=== PATIENT | female | born 1950 | race Caucasian/White ===

== ENCOUNTER 2021-03-11 11:42 | Outpatient (CLI) | payer MEDICARE, OTHER, SELFPAY ==
[2021-03-11 12:05] LABS: Basophils Percent Auto 0.4 % (0.2-1.2); Eosinophils Absolute Auto 0.1 K/mm3 (0-0.3); Eosinophils Percent Auto 1.3 % (0-4.4); Hematocrit 37.7 % (37.0-47.0); Hemoglobin 11.6 g/dL (12.0-15.0); Immature Granulocyte Absolute 0.03 K/mm3 (0.00-0.031); Immature Granulocyte Percent A 0.4 % (0-0.5); Lymphocytes Absolute Auto 1.77 K/mm3 (0.9-3.2); Lymphocytes Percent Auto 24.8 % (18.3-44.2); Mean Corpuscular HGB Conc 30.8 g/dl (32-36); Mean Corpuscular Hemoglobin 26.9 pg (26-34); Mean Corpuscular Volume 87.5 fl (80-100); Monocytes Absolute Auto 0.5 K/mm3 (0.1-0.6); Monocytes Percent Auto 6.3 % (2.6-8.5); Neutrophils Absolute Auto 4.8 K/mm3 (1.3-6.7); Neutrophils Percent Auto 66.8 % (45.5-73.1); Platelet Count Result 388 k/mm3 (150-375); Red Blood Count 4.31 M/mm3 (4.2-5.4); White Blood Count 7.2 K/mm3 (4.5-10.0)
[2021-03-11 12:23] LABS: Albumin Level 4.9 g/dL (3.5-5.1); Anion Gap 13 mmol/L (8-16); Blood Urea Nitrogen 16 mg/dL (7-17); Calcium 9.8 mg/dL (8.4-10.2); Carbon Dioxide 26 mmol/L (22-30); Chloride 100 mmol/L (98-107); Estimated Glomerular Filt Rate > 60; Glucose 133 mg/dL (65-105); Potassium 4.7 mmol/L (3.4-5.0); Sodium 139 mmol/L (137-145)
[2021-03-11 12:57] LABS: Hemoglobin A1C 7.3 % (<5.7)
[2021-03-11 12:58] LABS: Urine Cotinine NEGATIVE
== END 2021-03-11 11:43 | disposition home or self-care (01) ==
LOC: ANHSURGERY 03-30 11:42
PROVIDERS: Visit Provider Orthopaedic Surgery
DX: M16.12 Unilateral primary osteoarthritis, left hip (principal); Z01.818 Encounter for other preprocedural examination
CPT/HCPCS: 80048; 80307; 82040; 83036; 85025; 87070

== ENCOUNTER 2021-03-30 01:01 | Day surgery (SDC) | payer MEDICARE, OTHER, SELFPAY ==
[2021-03-11 10:27] VITALS: BP 102/58; PULSE 90; RESP 16; TEMP 36.4; O2SAT 98; BMI 29.5
--- NOTE | 2021-03-29 08:56 | WPDANESEPPF ---
Anes - Initial Pre Proc Eval Procedure: Operation Date: 03/30/21 12:00 Proposed Procedures p Left Total Hip Arthroplasty- Anterior Approach - Kofi Anna MD Date/Time: 03/29/21 08:56 Surgeon: Kofi Anna MD Pre Op Diagnosis: OA left hip Patient Data Age: 70 Gender: F Height: 1.61 m Weight: 77 kg Last Vital Signs Temp 36.4 C 03/11/21 10:27 Pulse 90 03/11/21 10:27 Resp 16 03/11/21 10:27 BP 102/58 L 03/11/21 10:27 Pulse Ox 98 03/11/21 10:27 Allergies Allergy/AdvReac Type Severity Reaction Status Date / Time No Known Allergies Allergy Verified 03/30/21 10:08 Home Medications Medication Instructions Recorded Confirmed Type acetaminophen [Tylenol Arthritis] 1,300 mg PO Q12H PRN 03/11/21 03/30/21 History aspirin [Aspir-81] 81 mg PO DAILY 03/11/21 03/30/21 History atorvastatin 40 mg PO DAILY 03/11/21 03/30/21 History carvedilol 3.125 mg PO BID 03/11/21 03/30/21 History losartan 25 mg PO HS 03/11/21 03/30/21 History meloxicam 15 mg PO QAM 03/11/21 03/30/21 History metformin 1,000 mg PO BID 03/11/21 03/30/21 History sertraline 50 mg PO QAM 03/11/21 03/30/21 History Patient hx anesthesia problems: none Family hx anesthesia problems: none PMFSH Past Medical History Medical History Anxiety Depression Diabetes type 2, controlled Hyperlipidemia Hypertension Osteoarthritis Surgical History Surgical History History of hysterectomy Social History Social History Smoking packs per day: 1.5 Smoking cigarettes per day: 30.0 Years smoked: 43 Smoking pack-years: 64.50 Smoking status: Former smoker Tobacco type: cigarettes Smoking end date: 03/03/11 Alcohol intake: former Alcohol use details: SOCIAL DRINKER IN PAST Substance use: never Living arrangements: with family Additional living arrangements comments: SON Spiritual care concerns: No Anes - Eval Final PreProcedure Day of Procedure 03/29/21 08:56 Patient weight: overweight Heart: regular rate and rhythm Lungs: clear to auscultation and normal air movement Airway: Mallampati scale class II Neurological: alert and oriented Last oral intake: >/= 8 hours ASA classification: III Emergent: no Anesthetic plan: proceed Anesthesia type and monitoring: general ETT and standard monitoring Informed Consent: The patient's anesthetic plan and its attendant risks and benefits were discussed with the patient/family/POA. Questions were solicited and answers provided to the satisfaction of the patient/family/POA.
[2021-03-30] VITALS (12 sets, daily range): BP systolic 118–158; BP diastolic 56–75; PULSE 68–105; RESP 12–20; TEMP 36.6–36.9; O2SAT 97–100
--- NOTE | ~2021-03-30 | XR_ITS ---
EXAMINATION: XR hip LT 1V w AP pelvis DATE: 03/30/2021 15:52 INDICATION: Postoperative evaluation following left total hip arthroplasty TECHNIQUE: Anteroposterior and lateral views of the left hip were obtained. COMPARISON: Intraoperative radiograph dated 03/30/2021 FINDINGS: Interval completion of the left total hip arthroplasty which appears well seated in near anatomic ali gnment. Surgical drain and expected subcutaneous gas in the postoperative bed. No fractures identifi ed. Mild to moderate osteoarthritis at the right hip. IMPRESSION: 1. Left total hip arthroplasty, negative for postoperative purposes. Reviewed, dictated and finalized at location A.
--- NOTE | ~2021-03-30 | XR_ITS ---
EXAMINATION: XR surgery orthopedic DATE: 03/30/2021 15:51 INDICATION: Anterior approach left total hip arthroplasty TECHNIQUE: A fluoroscopic images of the left hip and pelvis were obtained during procedure performed by Dr. Anna. Radiologist was not present for the imaging or procedure. The amount of fluoroscopy t miriam used during this procedure was 0.7 minutes. COMPARISON: None. FINDINGS: Images demonstrate resection of the left femoral head and neck and initial placement of a trial aceta bular component. On the final image the trial acetabular component has been replaced with the final a cetabular component which is affixed with at least a single screw. A femoral broach is been placed wi th proximal tip centered over the acetabular component. No fractures identified. Expected soft tissue gas in the operative bed. IMPRESSION: 1. Spectral appearance during left total hip arthroplasty. Correlate with procedure note note for fur ther detail. Reviewed, dictated and finalized at location A. IMPRESSION: 1. Spectral appearance during left total hip arthroplasty. Correlate with proce dure note note for further detail.
--- NOTE | 2021-03-30 08:22 | PM.IMHP ---
H&P: HPI History of Present Illness Date/Time: 03/30/21 08:22 70-year-old female patient who presents today for a left anterior total arthroplasty. She has been having pain in his hip for several years. It is progressively worsening. She is on meloxicam 15 mg daily. She also takes Tylenol on an as-needed basis to help her symptoms. She does have advanced arthritis in the left hip. Overall patient is fairly miserable on a daily basis due to the pain and restrictions from the arthritis. She feels this point she is ready to proceed with total hip arthroplasty. <MALICK Kramer - Last Filed: 03/30/21 08:28> Chief Complaint: left hip DJD <MALICK Kramer - Last Filed: 03/30/21 08:28> Review of Systems Review of Systems: All systems reviewed & are unremarkable except as noted in HPI and below <MALICK Kramer - Last Filed: 03/30/21 08:28> [facility] Past Medical History Medical History: Medical History Anxiety Depression Diabetes type 2, controlled Hyperlipidemia Hypertension Osteoarthritis <MALICK Kramer - Last Filed: 03/30/21 08:28> Surgical History Surgical History: Surgical History History of hysterectomy <MALICK Kramer - Last Filed: 03/30/21 08:28> Social History Social History: Social History Smoking packs per day: 1.5 Smoking cigarettes per day: 30.0 Years smoked: 43 Smoking pack-years: 64.50 Smoking status: Former smoker Tobacco type: cigarettes Smoking end date: 03/03/11 Alcohol intake: former Alcohol use details: SOCIAL DRINKER IN PAST Substance use: never Living arrangements: with family Additional living arrangements comments: SON Spiritual care concerns: No <MALICK Kramer - Last Filed: 03/30/21 08:28> Meds Home Medications and Allergies Home medications: Home Medications Medication Instructions Recorded Confirmed Type acetaminophen [Tylenol Arthritis] 1,300 mg PO Q12H PRN 03/11/21 03/30/21 History aspirin [Aspir-81] 81 mg PO DAILY 03/11/21 03/30/21 History atorvastatin 40 mg PO DAILY 03/11/21 03/30/21 History carvedilol 3.125 mg PO BID 03/11/21 03/30/21 History losartan 25 mg PO HS 03/11/21 03/30/21 History meloxicam 15 mg PO QAM 03/11/21 03/30/21 History metformin 1,000 mg PO BID 03/11/21 03/30/21 History sertraline 50 mg PO QAM 03/11/21 03/30/21 History <MALICK Kramer - Last Filed: 03/30/21 08:28> Allergies/Adverse reactions: Allergies Allergy/AdvReac Type Severity Reaction Status Date / Time No Known Allergies Allergy Verified 03/30/21 10:08 <MALICK Kramer Last Filed: 03/30/21 08:28> Exam Narrative: Exam Narrative: 70-year-old female alert pleasant. She is 5 ft 3 and 170 lb. Her left leg looks about 1/4 inch shorter than the right when she is supine. Flexion left hip is to 60 with a 10 degree flexion contracture. Full range of motion left knee otherwise. No effusion left knee. Internal rotation of the hip is 5? external rotation to 10?. She has normal abduction strength in the lateral position. Mild tenderness over the greater trochanter to palpation. Skin is all intact around the groin and anterior lateral hip. 2+ dorsalis pedis and posterior tibial artery pulse. Normal sensation left lower extremity. No edema. <MALICK Kramer - Last Filed: 03/30/21 08:28> Resp: Auscultation: clear to auscultation bilaterally <MALICK Kramer Last Filed: 03/30/21 08:28> Cardio: Rate: regular rate <MALICK Kramer Last Filed: 03/30/21 08:28> Rhythm: regular rhythm <MALICK Kramer Last Filed: 03/30/21 08:28> Assessment and Plan Additional Plan 70-year-old female who has advanced arthritis in the left hip with rather severe pains on a daily basis. Again this is affecting her daily l
[2021-03-30] MEDS: ACETAMINOPHEN 500 MG TABLET 1000 MG PO ×2 (10:18→18:46)
[2021-03-30] MEDS: LACTATED RINGERS 1,000 ML 30 ML IV CONT ×2 (10:30→15:52)
[2021-03-30 10:37] LABS: Glucose Point of Care 133 mg/dl (65-105)
[2021-03-30] MEDS: TRANEXAMIC ACID 1,000MG/ISO100 1,000 MG/100 ML BAG 200 MG IVPB (10:55)
--- NOTE | 2021-03-30 11:09 | SUR.PREOP ---
1109- TRANEXAMIC ACID 1,000 MG STARTED, AFTER ABOUT 10 MINUTES PT STATED HEAD STARTED ITCHING VERY BAD. TA STOPPED AND DR. CONTRERAS UPDATED. PT ALSO HAS HAD VANCO RUNNING FOR ABOUT 40 MINS. AFTER TA STOPPED, PT STATED ITCHING RESOLVED.
--- NOTE | 2021-03-30 11:17 | SUR.PREOP ---
1117- SPOKE WITH AND HE STATED TO GIVE
[2021-03-30] MEDS: DEXAMETHASONE SOD PHOS INJ 4 MG/ML VIAL IV PUSH (11:28)
--- NOTE | 2021-03-30 11:52 | WPDHPUPDATE1 ---
History and Physical Update Update Date/Time: 03/30/21 11:52 History and Physical has been reviewed, including an updated exam of the patient. There are NO changes in the patient's condition. Risks, benefits, and alternatives have been discussed and questions answered. Patient agrees to proceed with procedure.
[2021-03-30] MEDS: ceFAZolin 2 GM/D5W 50 ML 2 GM/50 ML BAG IVPB (12:03)
--- NOTE | 2021-03-30 12:04 | SUR.PREOP ---
1127- PT STATED SHE STILL WAS ITCHING, VANCO STOPPED AND DEXAMETHASONE 4 MG IVP GIVEN PER DR. SMITH. 1157- DR. SMITH SEEN PT. PT STATED SHE WAS NOT ITCHING AT THIS TIME. DR. SMITH STATED TO RESTART VANCO AND TA. INVENTORY TAKER AND GAMEPLAY PROGRAMMER UPDATED. NO REDNESS OR RASH NOTED ON SKIN.
[2021-03-30] MEDS: ceFAZolin SODIUM 1 GM VIAL 3 GM IRRIGATION (12:49)
[2021-03-30] MEDS: ceFAZolin SODIUM 1 GM VIAL IV PUSH (15:18)
[2021-03-30] MEDS: TRANEXAMIC ACID 1,000 MG/10 ML AMPUL 1000 MG IV PUSH (15:18)
--- NOTE | 2021-03-30 15:47 | SUR.OPER ---
post op films left hip done in or. end
--- NOTE | 2021-03-30 16:07 | W.PM.PROC2 ---
Procedure Note - Detailed Date of Procedure 03/30/21 Pre-op Diagnosis OA left hip Post-op Diagnosis same Procedure Performed Direct anterior approach left total hip arthroplasty Surgeon Kofi Anna MD Night Custodian is Shantanu Anesthesia general Indications severe arthritis pain stiffness Findings same. Bone quality was very good. Description of Procedure Patient was brought to the operating room and general anesthesia was administered. The feet were padded with soft roll and placed in the boots and SCDs placed on the calves which were running during the procedure. She received 2 g of Ancef weight based vancomycin 1 g of tranexamic acid preoperatively. She was placed on the [facility] [place] table and the left hip prepped draped usual fashion. A 10 cm incision was made 3 cm lateral to the ASIS extending distally. Dissection was carried down to the fascia over the tensor fascia milena which was longitudinally incised and elevated off the tensor fascia milena in the interval between TFL muscle and rectus femoris developed. We identified the crossing bifurcating vessels of the ascending lateral femoral circumflex vessels and these were ligated and divided. The ileal capsular is was elevated off the anterior capsule and the hip abducted internally rotated and the gluteus minimus elevated off the lateral capsule. Standard capsulotomy was performed. Severe hypertrophic changes were noted around the femoral head around the margin of the acetabulum. A femoral neck osteotomy was made according to preoperative templating a small napkin ring of bone was removed and the femoral head was extracted without difficulty. the anterior capsule was elevated off the anterior femur. The acetabulum was exposed and a preliminary trimming of the edges of the osteophytes was performed. Most of the labrum was ossified. Residual labrum was excised. The leg was extended after external rotation and interval between conjoined tendon and piriformis tendon was identified and incised which allowed the conjoined tendon to recess and allowed the piriformis to the posteriorly as we elevated the femur. The leg back in the neutral position the acetabulum was exposed. She had circumferential osteophytes resulting in a bony introitus. We medialized with the 42 Reamer to the floor of the fovea and reamed up to 47 and we could see that the 48 cup would be the correct size. To have the introitus compatible with the diameter of the cup we reamed to the 48 mm. The 48 trial fit well. The 47 Reamer was reintroduced and we countersunk this another 2-1/[address] to the medial wall for a 1 mm press fit. The 48 shell was chosen placed at 40? of abduction and the anteversion such that it was under the anterior acetabular osteophyte and about flush with the posterior margin of the acetabulum. An excellent Press-Fit was achieved and a single screw was placed in the ilium. Complete seating it been accomplished. The 32 inner diameter polyethylene liner 0 degree was impacted without difficulty. The leg was externally rotated extended and the femur broached up to a size 2 which had torsional stability. We trialed and the 5 head was too loose with a standard neck the 9mm neck was appropriate. We looked at intraoperative x-ray then and saw that we had equal leg lengths with the 9 mm neck. Offset appeared appropriate as well. The stem looked like it was a little bit undersized. We reassess the broach stability and again there was no torsional instability but a little bit of varus valgus wiggle with the broach handle. We broached up to a size 3 which was very snug and seated all the way down to the level of the calcar plane neck. On repeat trialing again the 9 mm neck was appropriate. We placed the size 3 standard offsetActis stem which seated fully again with an excellent press fit. On repeat trialing again the 5 was too loose the size 9 had a nice Shuck but was stable. The ceramic 9 mm x 32 mm femor
[2021-03-30 16:54] LABS: Glucose Point of Care 176 mg/dl (65-105)
--- NOTE | 2021-03-30 17:41 | ADMGEN ---
This patient, Luciana Pat, was admitted to 2 Medical Room 258-01. Patient/family oriented to hospital policies and general routines including ID bracelet, bed and alarms, visiting hours, pain management, procedures, bathroom and other care routines, personal items, smoking policy, room service/diet, and visiting hours. Information on how to activate the Rapid Response Team has been discussed. Patient/Family are encouraged to report perceived risks to care and to ask questions if they do not understand what they are told or what they should do.
[2021-03-30] MEDS: oxyCODONE HCL (*CRX) 5 MG TAB IR PO ×2 (18:46→20:34)
[2021-03-30] MEDS: SENNA/DOCUSATE SODIUM TABLET 2 TAB PO (18:46)
[2021-03-30] MEDS: metFORMIN HCL 500 MG TABLET 1000 MG PO (20:34)
[2021-03-30] MEDS: ATORVASTATIN 40 MG TABLET PO (20:34)
[2021-03-30] MEDS: carvediloL 3.125 MG TABLET PO (20:35)
[2021-03-30] MEDS: LOSARTAN POTASSIUM 25 MG TABLET PO (20:35)
[2021-03-30 21:28] LABS: Glucose Point of Care 271 mg/dl (65-105)
--- NOTE | 2021-03-30 22:30 | WPDCN ---
Assessment and Plan Assessment and plan (1) Arthritis of left hip: Code(s): M16.12 - Unilateral primary osteoarthritis, left hip Status: Acute Assessment and Plan: Postoperative day 0, status post anterior approach left total hip arthroplasty. Wound care and pain control will be deferred to Dr. Anna as well as DVT prophylaxis. Estimated blood loss noted, check hemoglobin and hematocrit in a.m. PT/OT consulted. (2) Hypertension: Code(s): I10 - Essential (primary) hypertension Status: Acute Assessment and Plan: Blood pressures were reviewed and they have been running a bit high postoperatively, likely due to pain. Continue antihypertensives and monitor daily. (3) Type 2 diabetes mellitus: Code(s): E11.9 - Type 2 diabetes mellitus without complications Status: Acute Assessment and Plan: Random glucose a bit elevated after surgery, likely due to stress of surgery. Initiate sliding scale insulin, Accu-Cheks, and hypoglycemic protocol. Resume metformin. (4) Hyperlipidemia: Code(s): E78.5 - Hyperlipidemia, unspecified Status: Acute Assessment and Plan: Continue atorvastatin and check LFTs in a.m. (5) Depression with anxiety: Code(s): F41.8 - Other specified anxiety disorders Status: Acute Assessment and Plan: No acute issues. Continue sertraline. Additional Plan Thank you for allowing us to participate in this patient's care. Please do not hesitate to contact us with any questions. Supervising physician for this medical consultation is Dr. Xochitl Campos. HPI Data of Consult Date/Time: 03/30/21 22:30 Requesting Physician: Kofi Anna MD Primary Care Provider: PHYSICIAN NOT ON STAFF Consult Narrative Narrative: This is a 70-year-old female who presented today for elective left anterior total hip arthroplasty whom the hospitalist service has been consulted for management of her medical conditions postoperatively. Aside from arthritis of the left hip her medical history is significant for type 2 diabetes mellitus, hypertension, hyperlipidemia, depression, and anxiety. The patient has been having pain in the left hip for several years which has gotten progressively worse. Despite conservative outpatient therapy her pain has continued and thus she elected for replacement. Her surgery was performed under general anesthesia with no immediate complications documented an estimated blood loss of 300 mL. She has been ambulating with a walker and up to the chair with moderate pain. When at rest she has minimal to no discomfort. She denies paresthesias, skin color, and temperature changes distal to the surgical site. She also denies postoperative fever, chills, sweats, chest pain, shortness of breath, nausea, and vomiting. Review of Systems Review of Systems: Twelve systems were reviewed with pertinent positives and negatives as per HPI. She believes her blood pressure and hypertension are well controlled on home medications. She is on metformin for her diabetes and tells me that her sugars have been running a bit higher recently and it looks like her most recent hemoglobin A1c was 7.3%. She denies retinopathy, nephropathy, and neuropathy however she does report that she will get aching in her lower legs but does not seem to be related to activity or rest. She denies claudication and pins and needle sensations. No history of venous thromboembolism. Except as documented, all other systems were reviewed and are negative. [facility] Past Medical History Medical History Anxiety Depression Hyperlipidemia Hypertension Normal cardiac stress test (2019) Osteoarthritis Shingles Type 2 diabetes mellitus Hemoglobin A1c was 7.3% on 03/11/2021. Surgical History Surgical History (Revi
[2021-03-31] VITALS (8 sets, daily range): BP systolic 107–119; BP diastolic 48–61; PULSE 66–107; RESP 16–20; TEMP 36.4–36.6; O2SAT 97–99
[2021-03-31] MEDS: oxyCODONE HCL (*CRX) 5 MG TAB IR PO ×4 (00:01→12:20)
[2021-03-31] MEDS: ACETAMINOPHEN 500 MG TABLET 1000 MG PO ×3 (00:01→12:20)
[2021-03-31] MEDS: BENZOCAINE/MENTHOL (*BKC) 18 EA LOZENGE 1 LOZENGE PO ×2 (00:01→04:15)
[2021-03-31 05:29] LABS: Basophils Percent Auto 0.2 % (0.2-1.2); Hematocrit 24.6 % (37.0-47.0); Immature Granulocyte Absolute 0.06 K/mm3 (0.00-0.031); Immature Granulocyte Percent A 0.4 % (0-0.5); Lymphocytes Absolute Auto 1.26 K/mm3 (0.9-3.2); Lymphocytes Percent Auto 8.7 % (18.3-44.2); Mean Corpuscular HGB Conc 32.5 g/dl (32-36); Mean Corpuscular Hemoglobin 27.5 pg (26-34); Mean Corpuscular Volume 84.5 fl (80-100); Mean Platelet Volume 10.2 fl (7.4-10.4); Monocytes Absolute Auto 1.1 K/mm3 (0.1-0.6); Monocytes Percent Auto 7.6 % (2.6-8.5); Neutrophils Percent Auto 83.1 % (45.5-73.1); Platelet Count Result 264 k/mm3 (150-375); Red Blood Count 2.91 M/mm3 (4.2-5.4); Red Cell Distribution Width 14.2 % (11.5-14.5); White Blood Count 14.5 K/mm3 (4.5-10.0)
[2021-03-31 05:45] LABS: Alanine Aminotransferase 20 U/L (4-35); Albumin Level 3.4 g/dL (3.5-5.1); Alkaline Phosphatase 49 U/L (38-126); Anion Gap 12 mmol/L (8-16); Aspartate Amino Transferase 28 U/L (14-36); Bilirubin,Total 0.4 mg/dL (0.2-1.3); Blood Urea Nitrogen 12 mg/dL (7-17); Calcium 8.4 mg/dL (8.4-10.2); Carbon Dioxide 20 mmol/L (22-30); Chloride 102 mmol/L (98-107); Estimated CRCL calculation 86 ml/min; Estimated Glomerular Filt Rate > 60; Glucose 120 mg/dL (65-110); Magnesium 1.2 mg/dL (1.6-2.3); Potassium 4.3 mmol/L (3.4-5.0); Sodium 134 mmol/L (137-145)
--- NOTE | 2021-03-31 07:18 | PM.PNORT ---
Progress Note: A&P Additional Plan POD 1 alert avss hgb-8.0 pt has been up overnight to restroom-no lightheaded/ dizzy. pt is tolerating anemia, drain is out wd-dry NVI pain is overall well controlled, plan to have pt work with PT today-if does well and having no symptoms and pain remains with pain controlled plan to send home this afternoon Subjective Subjective Date/Time Seen: 03/31/21 07:18 Objective Data Vital Signs Vital Signs: Vital Signs - 24 hr 03/30/21 10:48 03/30/21 15:52 03/30/21 16:05 Temperature 36.9 C 36.8 C Pulse Rate 81 88 82 Respiratory Rate 15 16 Blood Pressure 138/59 L 158/75 H 148/74 H Pulse Oximetry 97 100 100 03/30/21 16:20 03/30/21 16:25 03/30/21 16:35 Temperature Pulse Rate 74 74 Respiratory Rate 13 12 Blood Pressure 148/73 H 141/67 H Pulse Oximetry 100 99 98 03/30/21 16:50 03/30/21 17:05 03/30/21 17:15 Temperature Pulse Rate 68 75 77 Respiratory Rate 12 12 12 Blood Pressure 145/65 H 149/56 H 144/62 H Pulse Oximetry 99 97 98 03/30/21 20:00 03/30/21 20:35 03/30/21 21:43 Temperature 36.6 C Pulse Rate 96 69 96 Respiratory Rate 20 20 Blood Pressure 118/58 L Pulse Oximetry 97 97 03/31/21 00:00 03/31/21 00:42 03/31/21 04:00 Temperature 36.6 C Pulse Rate 78 74 88 Respiratory Rate 20 Blood Pressure 108/48 L Pulse Oximetry 98 03/31/21 05:34 Temperature 36.4 C L Pulse Rate 80 Respiratory Rate 20 Blood Pressure 107/49 L Pulse Oximetry 97 Intake/Output Intake/Output: Intake & Output 03/28/21 03/29/21 03/30/21 03/31/21 23:59 23:59 23:59 23:59 Intake Total 725 290 Output Total 0 30 Balance 725 260 Meds/Results Medications: Active Medications Generic Name Dose Route Start Last Admin Trade Name Freq PRN Reason Stop Dose Admin Acetaminophen 1,000 mg 03/30/21 18:00 03/31/21 05:01 Acetaminophen 500 Mg Tablet PO 1,000 mg Q6HR EMILIE Administration Apixaban 2.5 mg 03/31/21 09:00 Apixaban 2.5 Mg Tablet PO 04/12/21 09:01 Q12HR EMILIE Atorvastatin Calcium 40 mg 03/30/21 21:00 03/30/21 20:34 Atorvastatin 40 Mg Tablet PO 40 mg HS EMILIE Administration Benzocaine 1 lozenge 03/30/21 23:24 03/31/21 04:15 Benzocaine/Menthol (*Bkc) 18 Ea Lozenge PO 1 lozenge PRN PRN Administration Sore Throat Carvedilol 3.125 mg 03/30/21 21:00 03/30/21 20:35 Carvedilol 3.125 Mg Tablet PO 3.125 mg Q12HR EMILIE Administration Celecoxib 200 mg 03/31/21 08:00 Celecoxib 200 Mg Capsule PO DAILY@0800 EMILIE Cephalexin HCl 500 mg 03/31/21 13:00 Cephalexin 500 Mg Capsule PO 04/12/21 13:01 Q6HR EMILIE Dextrose 12.5 gm 03/30/21 22:47 Dextrose 50% 25 Gm/50 Ml Syringe IV PUSH PRN PRN Hypoglycemia Protocol Glucagon 1 mg 03/30/21 22:47 Glucagon For Inj 1 Mg Vial IM PRN PRN Hypoglycemia Protocol Glucose 15 gm 03/30/21 22:47 Glucose Oral Gel 15 Gm Of Glucse In 37.5 Gm Tube PO PRN PRN Hypoglycemia Protocol Cefazolin Sodium 1 gm in 50 mls @ 100 mls/hr 03/30/21 20:00 03/31/21 04:50 Ancef 1 Gm/D5w 50 Ml Pm IVPB 03/31/21 12:29 Infused Q8H EMILIE Infusion Vancomycin HCl 1,000 mg in 250 mls @ 250 mls/hr 03/30/21 22:00 03/30/21 22:20 Vancomycin 1,000 Mg/D5w 250 Ml IVPB 03/31/21 10:59 Infused Q12H EMILIE Infusion Dextrose 1,000 mls @ 100 mls/hr 03/30/21 22:47 Dextrose 5% 1,000 Ml IVPB PRN PRN Hypoglycemia Protocol Magnesium Sulfate 4 gm in 100 mls @ 100 mls/hr 03/31/21 06:35 Magnesium Sulf 4 Gm/Invra468vu IVPB 03/31/21 07:34 ONCE ONE Insulin Aspart 2 - 5 units 03/31/21 08:00 Insulin Aspart (*Bkc) 100 Units/Ml SUB-Q TIDWM EMILIE Protocol Losartan Potassium 25 mg 03/30/21 21:00 03/30/21 20:35 Losartan Potassium 25 Mg Tablet PO 25 mg HS EMILIE Administration Metformin HCl 1,000 mg 03/30/21 21:00 03/30/21 20:34 Metformin Hcl 500 Mg Tablet PO 1,000 mg Q12HR EMILIE Ad
--- NOTE | 2021-03-31 07:27 | PM.DS ---
DS: Admitting Diagnosis Admitting Diagnosis left hip DJD DS: Summary Hospital Course Hospital Course: stable Time Spent with Patient Time attestation: Total time spent providing and/or coordinating discharge services:70-year-old female who underwent left anterior total hip arthroplasty on 03/30. Procedure complications postoperatively she has been afebrile vital signs stable. Blood pressure is running a little low at 110 over 50s. Patient has been up to the restroom without having any dizziness or shortness of breath or chest pains. Hemoglobin on postop day 1 was 8.0 patient is tolerating his. Patient is weight-bearing as tolerated. She is on Eliquis for DVT prophylaxis. Pain is well controlled with scheduled Tylenol as well as oxycodone 5 mg. She is also Celebrex for the 1st 2 weeks as well. The patient is going to work with physical therapy on postop day 1. She continues to be symptomatic from the anemia as well as her pain remains well controlled plan on sending her home on 03/31. Patient was advised to keep leg elevated at home to prevent swelling. She was going home on a 10 day course of Keflex due to her history of diabetes. Will get another CBC checked tomorrow. DS: Data Data Completed and Pending Labs on day of discharge: Labs from last 24 hours 03/31/21 03/31/21 03/30/21 05:14 05:14 20:42 WBC 14.5 H RBC 2.91 L Hgb 8.0 L D Hct 24.6 L MCV 84.5 MCH 27.5 MCHC 32.5 RDW 14.2 Plt Count 264 MPV 10.2 Immature Gran % (Auto) 0.4 Neut % (Auto) 83.1 H Lymph % (Auto) 8.7 L Glenn % (Auto) 7.6 Eos % (Auto) 0.0 Baso % (Auto) 0.2 Lymph # (Auto) 1.26 Glenn # (Auto) 1.1 H Eos # (Auto) 0.0 Baso # (Auto) 0.0 Abs Immat Gran (auto) 0.06 H Absolute Neuts (auto) 12.0 H Absolute Nucleated RBC 0.0 Nucleated RBC % 0.0 Sodium 134 L Potassium 4.3 Chloride 102 Carbon Dioxide 20 L Anion Gap 12 BUN 12 Creatinine 0.50 L Estim Creat Clear Calc 86 Estimated GFR > 60 Glucose 120 H POC Capillary Glucose 271 H Calcium 8.4 Magnesium 1.2 L Total Bilirubin 0.4 Direct Bilirubin 0.0 AST 28 ALT 20 Alkaline Phosphatase 49 Total Protein 5.0 L Albumin 3.4 L Blood Type Antibody Screen 03/30/21 03/30/21 03/30/21 16:47 10:35 10:19 WBC RBC Hgb Hct MCV MCH MCHC RDW Plt Count MPV Immature Gran % (Auto) Neut % (Auto) Lymph % (Auto) Glenn % (Auto) Eos % (Auto) Baso % (Auto) Lymph # (Auto) Glenn # (Auto) Eos # (Auto) Baso # (Auto) Abs Immat Gran (auto) Absolute Neuts (auto) Absolute Nucleated RBC Nucleated RBC % Sodium Potassium Chloride Carbon Dioxide Anion Gap BUN Creatinine Estim Creat Clear Calc Estimated GFR Glucose POC Capillary Glucose 176 H 133 H Calcium Magnesium Total Bilirubin Direct Bilirubin AST ALT Alkaline Phosphatase Total Protein Albumin Blood Type O Positive Antibody Screen Negative Discharge Plan Discharge Patient Disposition: Home, Self-Care Discharge Instructions: YESSENIA SMITH M.D [facility], [place] [id number] POST-OPERATIVE DISCHARGE INSTRUCTIONS ANTERIOR TOTAL HIP ARTHROPLASTY 1. Move toes/feet up and down every hour while awake. 2. Be up walking every hour while awake. 3. Use cane in hand opposite of side of hip surgery or walker as comfort allows. Avoid sitting in a chair unless eating, receiving visitors or using the toilet. 4. When resting, lie on back with leg elevated above heart to minimize swelling. Significant swelling could indicate a blood clot and if this occurs, call the office (or go to the ER) to have a venous ultrasound performed. 5. Wound Care: Keep dry sponge on wound for 2 weeks. Use minimal tape.
[2021-03-31] MEDS: SENNA/DOCUSATE SODIUM TABLET 2 TAB PO (09:07)
[2021-03-31] MEDS: SERTRALINE HCL 50 MG TABLET PO (09:07)
[2021-03-31] MEDS: carvediloL 3.125 MG TABLET PO (09:07)
[2021-03-31] MEDS: metFORMIN HCL 500 MG TABLET 1000 MG PO (09:08)
[2021-03-31] MEDS: APIXABAN 2.5 MG TABLET PO (09:09)
[2021-03-31] MEDS: polyethylene glycoL 3350 17 GM POWD.PACK PO (09:09)
[2021-03-31] MEDS: CELECOXIB 200 MG CAPSULE PO (09:10)
[2021-03-31] MEDS: MAGNESIUM SULF 4 GM/WATER100ML 4 GM/100 ML BAG IVPB (09:11)
--- NOTE | 2021-03-31 09:30 | PM.IMPN ---
Progress Note: A&P Assessment and Plan (1) Arthritis of left hip: Code(s): M16.12 - Unilateral primary osteoarthritis, left hip Status: Acute Assessment and Plan: Postoperative day #1, status post anterior approach left total hip arthroplasty. Wound care and pain control will be deferred to Dr. Anna as well as DVT prophylaxis. Estimated blood loss noted PT/OT working with the patient, per Ortho. The patient appears well for discharge from a medical perspective. Will defer to ortho for the rest and official discharge (2) Hypertension: Code(s): I10 - Essential (primary) hypertension Status: Acute Assessment and Plan: Blood pressures were reviewed and stable this morning, 107/49 Continue monitoring BP while here. Continue home medications. (3) Type 2 diabetes mellitus: Code(s): E11.9 - Type 2 diabetes mellitus without complications Status: Acute Assessment and Plan: Glucose 120 this morning. Stable. Continue sliding scale insulin, Accu-Cheks, and hypoglycemic protocol. Resume metformin. (4) Hyperlipidemia: Code(s): E78.5 - Hyperlipidemia, unspecified Status: Acute Assessment and Plan: Continue atorvastatin. LFTs normal. (5) Depression with anxiety: Code(s): F41.8 - Other specified anxiety disorders Status: Acute Assessment and Plan: No acute issues. Continue sertraline. (6) Hypomagnesemia: Code(s): E83.42 - Hypomagnesemia Status: Acute Assessment and Plan: Magnesium was low this morning at 1.2. The patient denies any diarrhea, vomiting, being on diuretic therapy. She denies ever being told she had low magnesium levels. She denies any palpitations, chest pain or shortness of breath. Patient's potassium level is within normal range. Will supplement magnesium with IV this morning. Recommend follow-up with primary care in 1 week for further evaluation after discharge and surgery. (7) Normocytic anemia: Code(s): D64.9 - Anemia, unspecified Status: Acute Assessment and Plan: Patient reports a history of iron deficiency anemia and has been on iron supplementation for the last 6 months. H&H preop of showed hemoglobin 11.6. Postop hemoglobin dropped 8.0. She denies any lightheadedness, dizziness, fatigue, weakness. She has dark colored stools but states this is been since she has been on iron supplementation. She has no change or any bright red blood in her stools. Believe this is secondary to surgery. If she becomes symptomatic with working with therapy then we can recheck an H&H this afternoon. Otherwise I think she is stable to follow-up with her primary care provider and recheck labs as an outpatient per PCP. Additional Plan Time Spent With Patient Time with patient: 25 - 35 minutes Subjective Date/time seen: 03/31/21 09:30 Interval history: date of service 03/31/2021: the patient reports feeling well this morning. She still has some soreness to her throat from surgery yesterday. She did well with walking with therapy this morning around the room. She is eating and drinking without any issues. She denies any lightheadedness, dizziness, weakness or fatigue. She denies any chest pain, shortness of breath, cough, nausea, vomiting, abdominal pain, diarrhea, leg swelling, calf pain, or any other symptoms at this time. Review of Systems Review of Systems: All systems reviewed & are unremarkable except as noted in HPI and below Exam Narrative: General: 70-year-old woman sitting up in the chair eating breakfast. Appears comfortable. In no acute distress. Skin: No jaundice or cyanosis. Good skin turgor. Neck: Full range of motion. Supple. Respiratory: Lungs are clear to auscultation bilaterally. No bony chest wall tenderness. Cardiovascular:
--- NOTE | 2021-03-31 12:18 | WPDANESPN ---
Anes - Prog Note Post-Op Date/Time: 03/31/21 12:18 Cardiovascular status: normal Respiratory status: normal Airway patency: baseline Mental status: baseline Post-Op hydration status: normal Vital Signs: Last Vital Signs Temp 36.6 C 03/31/21 10:00 Pulse 73 03/31/21 10:00 Resp 16 03/31/21 10:00 BP 119/61 03/31/21 10:00 Pulse Ox 99 03/31/21 10:00 Pain Score (VAS): 3 I/O: Intake & Output 03/30/21 03/31/21 03/31/21 23:59 07:59 15:59 Intake Total 425 290 580 Output Total 0 30 Balance 425 260 580 Laboratory Tests 03/31/21 05:14 03/31/21 05:14 03/30/21 03/30/21 03/31/21 16:47 20:42 05:14 WBC 14.5 H RBC 2.91 L Hgb 8.0 L D Hct 24.6 L MCV 84.5 MCH 27.5 MCHC 32.5 RDW 14.2 Plt Count 264 MPV 10.2 Immature Gran % (Auto) 0.4 Neut % (Auto) 83.1 H Lymph % (Auto) 8.7 L Haskell % (Auto) 7.6 Eos % (Auto) 0.0 Baso % (Auto) 0.2 Lymph # (Auto) 1.26 Haskell # (Auto) 1.1 H Eos # (Auto) 0.0 Baso # (Auto) 0.0 Abs Immat Gran (auto) 0.06 H Absolute Neuts (auto) 12.0 H Absolute Nucleated RBC 0.0 Nucleated RBC % 0.0 Sodium Potassium Chloride Carbon Dioxide Anion Gap BUN Creatinine Estim Creat Clear Calc Estimated GFR Glucose POC Capillary Glucose 176 H 271 H Calcium Magnesium Total Bilirubin Direct Bilirubin AST ALT Alkaline Phosphatase Total Protein Albumin 03/31/21 05:14 WBC RBC Hgb Hct MCV MCH MCHC RDW Plt Count MPV Immature Gran % (Auto) Neut % (Auto) Lymph % (Auto) Haskell % (Auto) Eos % (Auto) Baso % (Auto) Lymph # (Auto) Haskell # (Auto) Eos # (Auto) Baso # (Auto) Abs Immat Gran (auto) Absolute Neuts (auto) Absolute Nucleated RBC Nucleated RBC % Sodium 134 L Potassium 4.3 Chloride 102 Carbon Dioxide 20 L Anion Gap 12 BUN 12 Creatinine 0.50 L Estim Creat Clear Calc 86 Estimated GFR > 60 Glucose 120 H POC Capillary Glucose Calcium 8.4 Magnesium 1.2 L Total Bilirubin 0.4 Direct Bilirubin 0.0 AST 28 ALT 20 Alkaline Phosphatase 49 Total Protein 5.0 L Albumin 3.4 L Post-procedural complaints: none Patient Feedback: Patient satisfied with anesthetic care.
[2021-03-31 13:07] LABS: Glucose Point of Care 159 mg/dl (65-105)
== END 2021-03-31 14:57 | disposition home or self-care (01) ==
LOC: ANHSURGERY 10:32 → ANH2MED 17:36
PROVIDERS: Physician Assistant; Visit Provider Orthopaedic Surgery
PROC: (CPT 27130; principal; 2021-03-30 12:00)
DX: M16.12 Unilateral primary osteoarthritis, left hip (principal); D64.9 Anemia, unspecified; E83.42 Hypomagnesemia; E11.9 Type 2 diabetes mellitus without complications; I10 Essential (primary) hypertension; F41.8 Other specified anxiety disorders; E78.5 Hyperlipidemia, unspecified; Z87.891 Personal history of nicotine dependence; Z79.82 Long term (current) use of aspirin; Z79.84 Long term (current) use of oral hypoglycemic drugs
CPT/HCPCS: 27130; 36415; 73501; 80048; 80076; 82948; 83735; 85025; 86850; 86900; 86901; 97116; 97161; 97165; 97530; A9270; C1776; J0171; J0690; J1100; J1885; J2270; J2795; J3010; J3370; J3475; J7120

== ENCOUNTER 2023-02-19 13:47 | Outpatient (CLI) | payer MEDICARE, OTHER, SELFPAY ==
[2023-02-19 15:32] LABS: Basophils Percent Auto 0.4 % (0.2-1.2); Eosinophils Absolute Auto 0.1 K/mm3 (0-0.3); Eosinophils Percent Auto 1.3 % (0-4.4); Hematocrit 36.1 % (37.0-47.0); Hemoglobin 12.3 g/dL (12.0-15.0); Immature Granulocyte Absolute 0.02 K/mm3 (0.00-0.031); Immature Granulocyte Percent A 0.3 % (0-0.5); Lymphocytes Absolute Auto 1.91 K/mm3 (0.9-3.2); Lymphocytes Percent Auto 26.9 % (18.3-44.2); Mean Corpuscular HGB Conc 34.1 g/dl (32-36); Mean Corpuscular Hemoglobin 28.6 pg (26-34); Mean Platelet Volume 9.5 fl (7.4-10.4); Monocytes Absolute Auto 0.5 K/mm3 (0.1-0.6); Monocytes Percent Auto 6.8 % (2.6-8.5); Neutrophils Absolute Auto 4.6 K/mm3 (1.3-6.7); Neutrophils Percent Auto 64.3 % (45.5-73.1); Platelet Count Result 310 k/mm3 (150-375); Red Cell Distribution Width 13.6 % (11.5-14.5); White Blood Count 7.1 K/mm3 (4.5-10.0)
[2023-02-19 15:44] LABS: Potassium 4.4 mmol/L (3.4-5.0)
[2023-02-19 15:49] LABS: Albumin Level 4.4 g/dL (3.5-5.1); Anion Gap 5 mmol/L (8-16); Blood Urea Nitrogen 16 mg/dL (7-17); Calcium 8.5 mg/dL (8.4-10.2); Carbon Dioxide 30 mmol/L (22-30); Chloride 102 mmol/L (98-107); Estimated Glomerular Filt Rate > 60; Glucose 142 mg/dL (65-110); Sodium 137 mmol/L (137-145)
[2023-02-19 16:31] LABS: Urine Cotinine NEGATIVE
== END 2023-02-19 13:48 | disposition home or self-care (01) ==
LOC: ANHSURGERY 13:55
PROVIDERS: PCP Nurse Practitioner Family; Visit Provider Orthopaedic Surgery
DX: M16.11 Unilateral primary osteoarthritis, right hip (principal); Z01.818 Encounter for other preprocedural examination
CPT/HCPCS: 80048; 80307; 82040; 85025; 87081

== ENCOUNTER 2023-03-14 01:21 | Day surgery (SDC) | payer MEDICARE, OTHER, SELFPAY ==
[2023-02-19 14:00] VITALS: BMI 29.2
--- NOTE | 2023-02-19 14:39 | PC.NURSE ---
Report to the Outpatient Waiting Room, entrance under the green pavilion located off [facility], at time _1000 on date _03/14/23 . Planned Procedure Time: __1200 . Time changes happen often and if your time is changed the preop area will call you the afternoon before. - You and your visitor will be asked to self-screen and do not enter if you have any COVID symptoms. - A mask is optional within the hospital at this time. Patients may have clear liquids (water, carbonated beverages, clear teas, apple juice) until 3 hours prior to surgery with a maximum of 20 ounces. - No food from midnight until time of surgery - Infants may have breast milk until 4 hours before surgery, infant formula 6 hours prior to surgery. - Children will be allowed to drink immediately following surgery. If applicable, please bring a bottle or sippy cup to assist with drinking. Juice, water, soda, and popsicles are readily available. For infants on formula, please bring formula the day of surgery. Pacifiers are allowed. Take the following medications with a SIP of water the morning of surgery: _CARVEDILOL,SERTRALINE DO NOT STOP ANY OF YOUR OTHER PRESCRIPTION MEDICATIONS PRIOR TO SURGERY ?EXCEPT THE FOLLOWING Medications to discontinue per physician __ASPIRIN AND ALEVE 7 DAYS PRE OP PER DR SMITH.LAST DOSE 03/06/23. ALL VITAMINS AND SUPPLEMENTS 3 DAYS PRE OP.LAST DOSE 03/11/23 Please no make-up, nail bruneian, hairspray, perfume, deodorant, or body powder the day of surgery. No jewelry (including any body piercings) or valuables the day of surgery, leave them at home. Please take a shower or bath the night before, or the morning of, surgery with an antibacterial soap. Wear comfortable, loose fitting clothing. Children are encouraged to wear pajamas. - Jewelry must be removed prior to entering the operating room. Rings and piercings that are not removed may be cut off. - The hospital will not accept responsibility for valuables. - Please leave all valuables, including medications, at home the day of surgery. If you are going home after surgery, a licensed city driver must drive you home. - NO public transportation without another adult if you receive anesthesia. - We recommend that an adult stay with you for 24 hours following discharge. - We also recommend that you do not drive, make important decision, drink alcoholic beverages, or take any drugs that were not prescribed by your health care provider for at least 24 hours after your discharge time. For Pediatric surgeries, we recommend two adults accompany the child home. Follow any additional instructions given to you from your surgeon. If you or anyone in your household have experienced Covid symptoms in the past week, please notify your surgeon or the nurse liaison at the phone number below for possible testing. VERBAL AND WRITTEN instructions given to _PATIENT and asked if any additional questions and then verbalized understanding. Patient advised to call surgeon office or pre surgery nurse liaison [phone] if any additional questions.
[2023-02-19 14:59] VITALS: BP 115/61; PULSE 91; RESP 18; TEMP 36.6; O2SAT 97
--- NOTE | 2023-03-12 11:27 | PM.IMHP ---
H&P: HPI History of Present Illness Date/Time: 03/12/23 11:27 Chief Complaint: Right hip DJD Narrative: 72-year-old female who presents today for a right anterior total hip arthroplasty. She had her left hip replaced in April of 2022. It continues do very well for her. Her right hip is bothering her more and more. She has moderately severe type 2 osteoarthritis that has progressively worsened over the last year. His symptoms have gotten worse. She is having symptoms on a daily basis which are limiting her activities. She has been taking [id number] anti-inflammatories as well as Tylenol without improvement of her symptoms. She feels at this point she would like to proceed with total hip arthroplasty rather day and continue nonsurgical treatment Review of Systems Review of Systems: All systems reviewed & are unremarkable except as noted in HPI and below PMFSH Past Medical History Medical History Anemia Anxiety Depression Encounter to establish care Hyperlipidemia Hypertension Normal cardiac stress test (2018) Osteoarthritis Shingles Type 2 diabetes mellitus Hemoglobin A1c was 7.3% on 03/11/2021. Surgical History Surgical History History of hysterectomy History of total left hip arthroplasty (03/30/21) Family History Family History Other Diabetes mellitus Hypertension Social History Social History Social History: Surrogate decision maker: Sandeep Pat, son. Code status: Full code. Smoking packs per day: 1.5 Smoking cigarettes per day: 30.0 Years smoked: 43 Smoking pack-years: 64.50 Smoking status: Former smoker Tobacco type: cigarettes Smoking end date: 09/03/10 Additional smoking assessment comments: DENIES ANY FORM OF TOBACCO USE Alcohol intake: never Alcohol use details: Drank socially in the past. Substance use: never Substance use type: does not use Lack of Transportation: No Lack of Food: Never True Current Housing: I Have Housing Concerned About Future Housing: No Difficulty Paying Gas/Electric Bills: No Difficulty Paying for Meds: No Currently Unemployed: No Education: High School Diploma/GED Difficulty w/ Childcare or Family Care: No Living arrangements: with family Additional living arrangements comments: Resides in [place] with her son. Additional occupation/education comments: Retired. Spiritual care concerns: No Meds Home Medications and Allergies Home Medications Medication Instructions Recorded Confirmed Type carvedilol 3.125 mg tablet 3.125 mg PO BID 03/11/21 02/19/23 History ferrous sulfate 325 mg (65 mg 325 mg PO DAILY 12/14/22 02/19/23 History iron) tablet fluticasone propionate 50 1 spray intranasal Q12H #48 grams 12/14/22 02/19/23 Rx mcg/actuation nasal spray,suspension semaglutide 0.25 mg or 0.5 mg (2 0.5 mg subcut WEEKLY 12/14/22 02/19/23 History mg/3 mL) subcutaneous pen injector losartan 25 mg tablet 25 mg PO DAILY #90 tabs 12/18/22 02/19/23 Rx metformin 1,000 mg tablet 1,000 mg PO BID #180 tabs 12/18/22 02/19/23 Rx aspirin 81 mg tablet 81 mg PO DAILY 02/19/23 02/19/23 History atorvastatin 20 mg tablet 40 mg PO HS 02/19/23 02/19/23 History cholecalciferol (vitamin D3) 25 25 mcg PO DAILY 02/19/23 02/19/23 History mcg (1,000 unit) tablet diphenhydramine 25 1 tablet PO HS PRN INSOMINA 02/19/23 02/19/23 History mg-acetaminophen 500 mg tablet (Tylenol PM Extra Strength) naproxen sodium 220 mg capsule 440 mg PO PRN PRN Pain 02/19/23 02/19/23 History (Aleve) sertraline 50 mg tablet 50 mg PO QAM #90 tabs 02/21/23 Rx Allergies Allergy/AdvReac Type Severity Reaction Status Date / Time No Known Allergies Allergy Verified 02/19/23 14:02 Exam Narrative: 7
--- NOTE | 2023-03-13 14:08 | WPDANESEPPF ---
Anes - Initial Pre Proc Eval Procedure: Operation Date: 03/14/23 12:00 Proposed Procedures p Right Total Hip Arthroplasty Anterior Approach - Kofi Anna MD Date/Time: 03/13/23 14:08 Surgeon: Kofi Anna MD Pre Op Diagnosis: oa right hip Patient Data Age: 72 Gender: F Height: 1.6 m Weight: 74.9 kg Last Vital Signs Temp 36.6 C 02/19/23 14:59 Pulse 91 02/19/23 14:59 Resp 18 02/19/23 14:59 BP 115/61 02/19/23 14:59 Pulse Ox 97 02/19/23 14:59 O2 Del Method Room Air 02/19/23 14:59 Allergies Allergy/AdvReac Type Severity Reaction Status Date / Time No Known Allergies Allergy Verified 03/14/23 10:54 Home Medications Medication Instructions Recorded Confirmed Type carvedilol 3.125 mg tablet 3.125 mg PO BID 03/11/21 03/14/23 History ferrous sulfate 325 mg (65 mg 325 mg PO DAILY 12/14/22 03/14/23 History iron) tablet fluticasone propionate 50 1 spray intranasal Q12H #48 grams 12/14/22 03/14/23 Rx mcg/actuation nasal spray,suspension losartan 25 mg tablet 25 mg PO DAILY #90 tabs 12/18/22 03/14/23 Rx metformin 1,000 mg tablet 1,000 mg PO BID #180 tabs 12/18/22 03/14/23 Rx aspirin 81 mg tablet 81 mg PO DAILY 02/19/23 03/14/23 History atorvastatin 20 mg tablet 40 mg PO HS 02/19/23 03/14/23 History cholecalciferol (vitamin D3) 25 25 mcg PO DAILY 02/19/23 03/14/23 History mcg (1,000 unit) tablet diphenhydramine 25 1 tablet PO HS PRN INSOMINA 02/19/23 03/14/23 History mg-acetaminophen 500 mg tablet (Tylenol PM Extra Strength) naproxen sodium 220 mg capsule 440 mg PO PRN PRN Pain 02/19/23 03/14/23 History (Aleve) sertraline 50 mg tablet 50 mg PO QAM #90 tabs 02/21/23 03/14/23 Rx semaglutide 0.25 mg or 0.5 mg (2 0.25 mg (0.4 mL) subcut WEEKLY #3 03/13/23 03/14/23 Rx mg/3 mL) subcutaneous pen injector mL Patient hx anesthesia problems: none Family hx anesthesia problems: none Results Review: All pre-operative results and documents have been reviewed as part of the pre-operative evaluation. [facility]LY [facility] Past Medical History Medical History (Updated 03/13/23 @ 14:09 by Sj Yang MD) Anemia Anxiety Arthritis of left hip Depression Depression with anxiety Encounter to establish care Hyperlipidemia Hyperlipidemia Hypertension Hypertension Normal cardiac stress test (2019) Normocytic anemia Osteoarthritis Overweight (BMI 25.0-29.9) Shingles Type 2 diabetes mellitus Hemoglobin A1c was 7.3% on 03/11/2021. Surgical History Surgical History History of hysterectomy History of total left hip arthroplasty (03/30/21) Family History Family History Other Diabetes mellitus Hypertension Social History Social History Social History: Surrogate decision maker: Sandeep Pat, son. Code status: Full code. Smoking packs per day: 1.5 Smoking cigarettes per day: 30.0 Years smoked: 43 Smoking pack-years: 64.50 Smoking status: Former smoker Tobacco type: cigarettes Smoking end date: 09/03/10 Additional smoking assessment comments: DENIES ANY FORM OF TOBACCO USE Alcohol intake: never Alcohol use details: Drank socially in the past. Substance use: never Substance use type: does not use Lack of Transportation: No Lack of Food: Never True Current Housing: I Have Housing Concerned About Future Housing: No Difficulty Paying Gas/Electric Bills: No Difficulty Paying for Meds: No Currently Unemployed: No Education: High School Diploma/GED Difficulty w/ Childcare or Family Care: No Living arrangements: with family Additional living arrangements comments: Resides in [place] with her son. Additional occupation/education comments: Retired. Spiritual care concerns: No Anes - Eval Final PreProcedure Day of Procedure 03/13/23 14:08 Scarlet
[2023-03-14] VITALS (12 sets, daily range): BP systolic 119–151; BP diastolic 43–72; PULSE 74–97; RESP 12–20; TEMP 36.2–37; O2SAT 94–100
--- NOTE | ~2023-03-14 | XR_ITS ---
EXAMINATION: XR surgery orthopedic DATE: 03/14/2023 15:36 INDICATION: Right hip osteoarthritis. TECHNIQUE: A single intraoperative fluoroscopic view of right hip was obtained. I was not present. Fl uoroscopy exposure time was 71 seconds. COMPARISON: Pelvis and hip radiographs 03/14/2023 FINDINGS: There is a total right hip arthroplasty in near-anatomic alignment. IMPRESSION: 1. Total right hip arthroplasty in near-anatomic alignment. Reviewed, dictated and finalized at location E.
--- NOTE | ~2023-03-14 | XR_ITS ---
EXAMINATION: XR hip RT 1V w AP pelvis DATE: 03/14/2023 15:48 INDICATION: Total right hip arthroplasty. Postop. TECHNIQUE: An anteroposterior view of the pelvis and single view of right hip were obtained. COMPARISON: Pelvis and left hip radiographs 03/30/2021 FINDINGS: There are bilateral total hip arthroplasties in near-anatomic alignment. No fracture. No pe riprosthetic lucency to suggest loosening or infection. Osteitis pubis is noted. There is gas around the right hip, consistent with recent surgery. There is a surgical drain near right hip. IMPRESSION: 1. Bilateral total hip arthroplasties in near-anatomic alignment. Reviewed, dictated and finalized at location E.
[2023-03-14] MEDS: ACETAMINOPHEN 500 MG TABLET 1000 MG PO ×2 (10:30→18:41)
[2023-03-14] MEDS: VANCOMYCIN 1,000 MG/NS 250 ML BAG 250 MG IVPB (10:30)
[2023-03-14] MEDS: LACTATED RINGERS 1,000 ML 30 ML IV CONT ×2 (10:30→15:50)
[2023-03-14 10:53] LABS: Glucose Point of Care 96 mg/dl (65-105)
[2023-03-14] MEDS: TRANEXAMIC ACID 1,000MG/ISO100 1,000 MG/100 ML BAG 200 MG IVPB (11:00)
--- NOTE | 2023-03-14 11:37 | WPDHPUPDATE1 ---
History and Physical Update Update Date/Time: 03/14/23 11:37 History and Physical has been reviewed, including an updated exam of the patient. There are NO changes in the patient's condition. Risks, benefits, and alternatives have been discussed and questions answered. Patient agrees to proceed with procedure.
[2023-03-14] MEDS: ceFAZolin 2 GM/D5W 50 ML 2 GM/50 ML BAG IVPB (12:08)
[2023-03-14] MEDS: ceFAZolin SODIUM 1 GM VIAL 3 GM (12:50)
[2023-03-14] MEDS: TRANEXAMIC ACID 1,000 MG/10 ML AMPUL 1000 MG IV PUSH (15:21)
[2023-03-14] MEDS: ceFAZolin SODIUM 1 GM VIAL 2 GM IV PUSH (15:25)
--- NOTE | 2023-03-14 15:48 | W.PM.PROC2 ---
Procedure Note - Detailed Date of Procedure 03/14/23 Pre-op Diagnosis oa right hip Post-op Diagnosis Same Procedure Performed Direct anterior approach right total hip arthroplasty Surgeon Kofi Anna MD Open Pit Quarry Supervisor beltran Anesthesia General Description of Procedure Patient was brought to the operating room and general anesthesia was administered. She received 2 g Ancef weight based vancomycin 1 g tranexamic acid preoperatively. Extra padding was placed on the feet and the boots applied she was transferred to the [facility] [place] table right hip prepped draped usual fashion. A 10 cm longitudinal incision was made starting 3 cm lateral to the ASIS. Dissection carried down to the fascia which was exposed and the fascia incised longitudinally and elevated off the anterior 1 half of the tensor fascia milena muscle. Interval between rectus femoris and tensor fascia milena developed and crossing ascending lateral femoral circumflex vessels were ligated with suture divided. Retractor was placed anteromedial to the capsule the hip abducted internally rotated and the gluteus minimus elevated off the lateral capsule. Inverted T capsulotomy was performed and femoral neck osteotomy carried out. Femoral head was removed measured 44.5 mm in diameter. The acetabulum was exposed labrum remnants excised. She had large hypertrophic osteophytes surrounding the acetabulum. The femur was externally rotated extended and the interval between conjoined tendon and piriformis incised which allowed slight recession of the conjoined tendon and the piriformis flipped posteriorly. This gave adequate mobility of the femur. The leg was brought back in the horizontal position with longitudinal traction external rotation applied the acetabulum prepared. We reamed up to a 47 medialized in fully and a light reaming with the 48 and the 48 trial would not seat. We carefully medialized the 48 Reamer fully and with this the trial seated fully with an excellent tight fit. The 48 pinnacle cup was chosen and was seated fully at 40? of abduction and appropriate anteversion. Single screw was placed in the ilium. Thirty-two inner diameter acetabular liner placed without difficulty. We then carefully circumferentially removed osteophytes from around the acetabulum to avoid impingement. The leg was externally rotated and extended with the table hook exposing the proximal femur which was broached up to a size 3 which still had significant torsional wiggle. We inserted the 4 broach and trialed. With the size 5 head we were still a bit tight with standard neck and we were a little long. We countersunk this about 4 mm and on we read trialing we had appropriate soft tissue tension but we were still about 4 - 5 mm longer than our preop length a and we countersunk the broach another 4 mm and trialing with the 9 we had appropriate soft tissue tension and the +5 head was too loose. Under fluoro we were about 2 mm longer than the other side which means we had length her about 2 mm from her preop length which showed equal lesser was on line across the carbon dioxide operator foramina. I felt this was appropriate leg length and offset at this time. Port we calcar planed with a saw and impacted the size 4 standard offset stem Actis which seated fully. We trialed with the +9 which had appropriate soft tissue tension with no instability. The wound was thoroughly irrigated with antibiotic solution and the size +932 ceramic head was impacted on the clean and dried trunnion hip reduced stability reconfirmed. Fluoroscopic x-ray showed no radiographic complication. Two additional g of Ancef and 1 g of tranexamic acid were given time wound wound closure. Local anesthetic cocktail was injected in the periarticular soft tissues. Estimated blood loss was 550 and she got 250 back as Cell Saver. Wound was quite dry at time of wound closure of the bone surfaces did lose more than average to a significant degree. This oozing gradually stopped aft
[2023-03-14 16:06] LABS: Glucose Point of Care 163 mg/dl (65-105)
[2023-03-14] MEDS: fentaNYL CITRATE INJ (*CRX) 100 MCG/2 ML VIAL 25 MCG IV PUSH ×4 (16:08→16:41)
[2023-03-14] MEDS: ONDANSETRON INJ 4 MG/2 ML VIAL IV PUSH (17:45)
[2023-03-14] MEDS: SODIUM CHLORIDE 0.9% IV 1,000 ML 125 ML IV CONT (18:40)
[2023-03-14] MEDS: oxyCODONE HCL (*CRX) 5 MG TAB IR PO ×2 (18:41→20:48)
[2023-03-14] MEDS: SENNA/DOCUSATE SODIUM TABLET 2 TAB PO (18:42)
--- NOTE | 2023-03-14 18:54 | ADMGEN ---
This patient, Luciana Pat, was admitted to Medical Room 258-01 at 1700. Patient/family oriented to hospital policies and general routines including ID bracelet, bed and alarms, visiting hours, pain management, procedures, bathroom and other care routines, personal items, smoking policy, room service/diet, and visiting hours. Information on how to activate the Rapid Response Team has been discussed. Patient/Family are encouraged to report perceived risks to care and to ask questions if they do not understand what they are told or what they should do.
[2023-03-14] MEDS: VANCOMYCIN 1,000 MG/NS 250 ML 1,000 MG/250 ML BAG 250 MG IVPB (20:47)
[2023-03-14] MEDS: ATORVASTATIN 40 MG TABLET PO (20:47)
[2023-03-14] MEDS: ceFAZolin 1 GM/NS 50 ML 1 GM/50 ML BAG IVPB (20:47)
[2023-03-14] MEDS: carvediloL 3.125 MG TABLET PO (20:48)
[2023-03-14] MEDS: FAMOTIDINE 20 MG TABLET PO (20:48)
[2023-03-14] MEDS: metFORMIN HCL 500 MG TABLET 1000 MG PO (20:48)
[2023-03-14] MEDS: FLUTICASONE PROPIONATE 0.05% NA SPR 16 GM BTL (*BKC) 1 SPRAY NASAL (20:51)
[2023-03-14] MEDS: KETOROLAC 15 MG/ML VIAL (*BKC) IV PUSH (21:47)
[2023-03-15] MEDS: ACETAMINOPHEN 500 MG TABLET 1000 MG PO ×3 (00:25→12:16)
[2023-03-15] MEDS: oxyCODONE HCL (*CRX) 5 MG TAB IR PO ×4 (00:25→12:16)
[2023-03-15 00:35] VITALS: BP 108/44; PULSE 67; RESP 20; TEMP 36.1; O2SAT 99
[2023-03-15 04:34] VITALS: BP 100/45; PULSE 71; RESP 20; TEMP 36.3; O2SAT 99
[2023-03-15] MEDS: ceFAZolin 1 GM/NS 50 ML 1 GM/50 ML BAG IVPB ×2 (04:44→12:17)
[2023-03-15] MEDS: KETOROLAC 15 MG/ML VIAL (*BKC) IV PUSH (04:44)
[2023-03-15 05:42] LABS: Basophils Percent Auto 0.3 % (0.2-1.2); Hemoglobin 8.2 g/dL (12.0-15.0); Immature Granulocyte Absolute 0.06 K/mm3 (0.00-0.031); Immature Granulocyte Percent A 0.4 % (0-0.5); Lymphocytes Absolute Auto 1.06 K/mm3 (0.9-3.2); Lymphocytes Percent Auto 7.7 % (18.3-44.2); Mean Corpuscular HGB Conc 31.5 g/dl (32-36); Mean Corpuscular Hemoglobin 28.6 pg (26-34); Mean Corpuscular Volume 90.6 fl (80-100); Mean Platelet Volume 10.3 fl (7.4-10.4); Monocytes Percent Auto 7.5 % (2.6-8.5); Neutrophils Absolute Auto 11.6 K/mm3 (1.3-6.7); Neutrophils Percent Auto 84.1 % (45.5-73.1); Platelet Count Result 202 k/mm3 (150-375); Red Blood Count 2.87 M/mm3 (4.2-5.4); Red Cell Distribution Width 13.8 % (11.5-14.5); White Blood Count 13.8 K/mm3 (4.5-10.0)
[2023-03-15 05:49] LABS: Anion Gap 5 mmol/L (8-16); Blood Urea Nitrogen 14 mg/dL (7-17); Calcium 7.3 mg/dL (8.4-10.2); Carbon Dioxide 21 mmol/L (22-30); Chloride 107 mmol/L (98-107); Estimated CRCL calculation 70 ml/min; Estimated Glomerular Filt Rate > 60; Glucose 102 mg/dL (65-110); Potassium 4.2 mmol/L (3.4-5.0); Sodium 133 mmol/L (137-145)
--- NOTE | 2023-03-15 07:26 | PM.PNORT ---
Subjective Subjective Date/Time Seen: 03/15/23 07:26 Interval history: Patient is alert. She is afebrile vital signs are stable. Blood pressure is a little low. Hemoglobin is 8 2. She is asymptomatic from the low blood pressure. Patient has been up overnight to restroom multiple times without any symptoms. Drain is out. Dressing is dry and intact. Neurovascularly she is intact. Pain is well controlled. Plan to have the patient work with therapy this morning and again this afternoon once IV antibiotics are completed she will be discharged home early this afternoon. Objective Data Vital Signs Vital Signs: Vital Signs - 24 hr 03/14/23 10:45 03/14/23 15:50 03/14/23 16:00 Temperature 36.3 C L 37.0 C Pulse Rate 75 97 92 Respiratory Rate 16 12 12 Blood Pressure 119/58 L 138/72 151/62 H Pulse Oximetry 100 100 100 Oxygen Delivery Room Air Simple Face Mask Simple Face Mask Oxygen Flow Rate 8 6 03/14/23 16:15 03/14/23 16:30 03/14/23 16:45 Temperature Pulse Rate 96 82 83 Respiratory Rate 12 12 13 Blood Pressure 146/62 H 142/58 H 138/55 L Pulse Oximetry 98 98 94 Oxygen Delivery Room Air Room Air Room Air Oxygen Flow Rate 03/14/23 17:10 03/14/23 17:25 03/14/23 17:55 Temperature 36.6 C 36.4 C 36.5 C Pulse Rate 77 74 85 Respiratory Rate 17 17 18 Blood Pressure 131/66 130/52 L 135/51 L Pulse Oximetry 99 98 97 Oxygen Delivery Oxygen Flow Rate 03/14/23 18:47 03/14/23 18:55 03/14/23 20:00 Temperature 36.6 C 36.2 C L Pulse Rate 76 74 Respiratory Rate 18 20 Blood Pressure 136/43 L 125/62 Pulse Oximetry 99 100 Oxygen Delivery Room Air Oxygen Flow Rate 03/14/23 20:48 03/14/23 20:00 03/15/23 00:35 Temperature 36.1 C L Pulse Rate 74 67 Respiratory Rate 20 Blood Pressure 108/44 L Pulse Oximetry 99 Oxygen Delivery Room Air Oxygen Flow Rate 03/15/23 04:34 Temperature 36.3 C L Pulse Rate 71 Respiratory Rate 20 Blood Pressure 100/45 L Pulse Oximetry 99 Oxygen Delivery Oxygen Flow Rate Intake/Output Intake/Output: Intake & Output 03/12/23 03/13/23 03/14/23 03/15/23 23:59 23:59 23:59 23:59 Intake Total 750 50 Output Total 90 Balance 750 -40 Meds/Results Medications: Active Medications Generic Name Dose Route Start Last Admin Trade Name Deric PRN Reason Stop Dose Admin Acetaminophen 1,000 mg 03/14/23 18:00 03/15/23 05:42 Acetaminophen 500 Mg Tablet PO 1,000 mg Q6HR EMILIE Administration Apixaban 2.5 mg 03/15/23 09:00 Apixaban 2.5 Mg Tablet PO Q12HR EMILIE Atorvastatin Calcium 40 mg 03/14/23 21:00 03/14/23 20:47 Atorvastatin 40 Mg Tablet PO 40 mg HS EMILIE Administration Carvedilol 3.125 mg 03/14/23 21:00 03/14/23 20:48 Carvedilol 3.125 Mg Tablet PO 3.125 mg Q12HR EMILIE Administration Celecoxib 200 mg 03/15/23 09:00 Celecoxib 200 Mg Capsule PO DAILY EMILIE Cephalexin HCl 500 mg 03/15/23 18:00 Cephalexin 500 Mg Capsule PO Q6HR EMILIE Famotidine 20 mg 03/14/23 21:00 03/14/23 20:48 Famotidine 20 Mg Tablet PO 20 mg Q12HR EMILIE Administration Fluticasone Propionate 1 spray 03/14/23 21:00 03/14/23 20:51 Fluticasone Propionate 0.05% Na Spr 16 Gm Btl (*Bkc) NASAL 1 spray Q12HR EMILIE Administration Cefazolin Sodium 1 gm in 50 mls @ 100 mls/hr 03/14/23 20:00 03/15/23 05:14 Ancef 1 Gm/Ns 50 Ml IVPB 03/15/23 12:29 Infused Q8H EMILIE Infusion Vancomycin HCl 1,000 mg in 250 mls @ 250 mls/hr 03/14/23 20:00 03/14/23 21:47 Vancomycin 1,000 Mg/Ns 250 Ml IVPB 03/15/23 08:59 Infused Q12H EMILIE Infusion Losartan Potassium 25 mg 03/15/23 09:00 Losartan Potassium 25 Mg Tablet PO DAILY EMILIE Metformin HCl 1,000 mg 03/14/23 21:00 03/14/23 20:48 Metformin Hcl 500 Mg Tablet PO 1,000 mg Q12HR EMILIE Administration Miscellaneous Information 0 each 03/14/23 00:01 Semaglutide Nonform Can Pt Bring From Home Or Hold While Here XX 04/13/23 00:00
--- NOTE | 2023-03-15 07:33 | PM.DS ---
DS: Admitting Diagnosis Discharge Date 03/15 Admitting Diagnosis Right hip DJD DS: Discharge Diagnosis Discharge Diagnosis (1) Hip arthritis: Code(s): M16.10 - Unilateral primary osteoarthritis, unspecified hip Status: Acute DS: Summary Hospital Course Hospital Course: 72-year-old female who underwent right anterior total hip arthroplasty. Underwent the procedure on 03/15. Underwent the procedure without complications. Postoperatively she has been afebrile vital signs are stable. Blood pressure running a little low. Hemoglobin dropped to 8.2 postop day 1. Patient was asymptomatic from the anemia but we will hold her losartan and she will follow up with her primary care doctor in a week. Her drain is out. She is weight-bearing as tolerated. She is on Eliquis for DVT prophylaxis. Pain is well controlled with scheduled Tylenol as well as oxycodone 5 mg. She is on Celebrex for 10 days. She go home with a 10 day course of Keflex due to history of diabetes. Patient was advised when she goes home to keep the leg elevated prevent swelling. She was calm Senokot MiraLax for constipation. She was advised any questions or concerns she is to call the office otherwise we will see her at her appointed dates. Time Spent with Patient Time attestation: Total time spent providing and/or coordinating discharge services: DS: Data Data Completed and Pending Labs on day of discharge: Labs from last 24 hours 03/15/23 03/14/23 03/14/23 05:18 16:03 11:39 WBC 13.8 H RBC 2.87 L Hgb 8.2 L D Hct 26.0 L MCV 90.6 MCH 28.6 MCHC 31.5 L RDW 13.8 Plt Count 202 MPV 10.3 Immature Gran % (Auto) 0.4 Neut % (Auto) 84.1 H Lymph % (Auto) 7.7 L [place] % (Auto) 7.5 Eos % (Auto) 0.0 Baso % (Auto) 0.3 Lymph # (Auto) 1.06 [place] # (Auto) 1.0 H Eos # (Auto) 0.0 Baso # (Auto) 0.0 Abs Immat Gran (auto) 0.06 H Absolute Neuts (auto) 11.6 H Absolute Nucleated RBC 0.0 Nucleated RBC % 0.0 Sodium 133 L Potassium 4.2 Chloride 107 Carbon Dioxide 21 L Anion Gap 5 L BUN 14 Creatinine 0.60 L Estim Creat Clear Calc 70 Estimated GFR > 60 Glucose 102 POC Capillary Glucose 163 H Calcium 7.3 L Blood Type O Positive Antibody Screen Negative 03/14/23 10:46 WBC RBC Hgb Hct MCV MCH MCHC RDW Plt Count MPV Immature Gran % (Auto) Neut % (Auto) Lymph % (Auto) [place] % (Auto) Eos % (Auto) Baso % (Auto) Lymph # (Auto) [place] # (Auto) Eos # (Auto) Baso # (Auto) Abs Immat Gran (auto) Absolute Neuts (auto) Absolute Nucleated RBC Nucleated RBC % Sodium Potassium Chloride Carbon Dioxide Anion Gap BUN Creatinine Estim Creat Clear Calc Estimated GFR Glucose POC Capillary Glucose 96 Calcium Blood Type Antibody Screen Discharge Plan Discharge Patient Disposition: Home, Self-Care Discharge Instructions: KOFI ANNA M.D [facility] [address] [place] [id number] POST-OPERATIVE DISCHARGE INSTRUCTIONS ANTERIOR TOTAL HIP ARTHROPLASTY 1. Move toes/feet up and down every hour while awake. 2. Be up walking every hour while awake. 3. Use cane in hand opposite of side of hip surgery or walker as comfort allows. Avoid sitting in a chair unless eating, receiving visitors or using the toilet. 4. When resting, lie on back with leg elevated above heart to minimize swelling. Significant swelling could indicate a blood clot and if this occurs, call the office (or go to the ER) to have a venous ultrasound performed. 5. Wound Care: Keep dry sponge on wound for 2 weeks. Use minimal tape. 6. Follow weight bearing status as instructed. 7. May shower with dressing off. Stand Alone Forms: General Discharge Instructions Follow-up/Referrals: Kofi Anna MD [Physician] - Keep Reg. Scheduled Appt. Discha
--- NOTE | 2023-03-15 07:38 | PM.OP ---
Procedure Note - Brief Procedure Note - Brief Date of procedure: 03/14/23 oa right hip Surgeon: MALICK Kramer Description of procedure: 72-year-old female underwent right anterior total hip arthroplasty. I was involved in the procedure including positioning the patient on the OR table as well as 1st assisting to the time surgery. Total time spent was 3-1/2 hours
--- NOTE | 2023-03-15 07:42 | PM.IMCN ---
Assessment and Plan Assessment and plan (1) Hyperlipidemia: Code(s): E78.5 - Hyperlipidemia, unspecified Status: Acute Assessment and Plan: Lipid panel on 12/2022 WNL -currently on Atorvastatin 40 mg PO daily (2) Hypertension: Code(s): I10 - Essential (primary) hypertension Status: Acute Assessment and Plan: Well controlled on home regimen actually slightly hypotensive post-op -patient asymptomatic -holding losartan and coreg for today (3) Depression with anxiety: Code(s): F41.8 - Other specified anxiety disorders Status: Acute Assessment and Plan: controlled with home regimen -continue sertraline 50 mg PO daily (4) Anemia: Code(s): D64.9 - Anemia, unspecified Status: Acute Assessment and Plan: Hemoglobin 12.3 on admission, today 8.2 2/2 blood loss with surgery. Estimated blood loss per op note 550 ml with 250 ml of cell saver returned. -chronic Fe deficiency. On ferrous sulfate 325 mg po daily. -patient asymptomatic (5) Type 2 diabetes mellitus: Code(s): E11.9 - Type 2 diabetes mellitus without complications Status: Acute Assessment and Plan: -A1C 6.2 in December 2022 -taking metformin and semaglutide -AC/HS accu checks -DM diet (6) S/P total right hip arthroplasty: Code(s): Z96.641 - Presence of right artificial hip joint Status: Acute Assessment and Plan: POD 1 -Drain removed today per ortho -PT/OT ordered with full weight bearing status -Receiving a total of three doses of Cefazolin and 2 doses Vancomycin for SCIP. -DVT prophalyxis per primary with Apixaban 2.5 mg PO BID -Oxycodone prn Q 4 hours with IVP morphine for breakthrough pain. -Bowel regimen ordered with Docusate/Senna and miralax Plan Per Ortho's note this morning, if patient does okay working with therapy then she will d/c home with outpatient therapy. HPI Data of Consult Consult date: 03/15/23 Requesting Physician: Kofi Anna MD Primary Care Provider: Gabriela Hopson NP Consult Narrative Narrative: Luciana Pat is a 72 year old female with a PMH of HTN, HLD, depression, anxiety, iron deficiency anemia, osteoarthritis with left hip replacement in 2020, DM 2 on metformin and semaglutide. Hemoglobin A1C was 6.2 this past December. Patient was admitted to [place] for scheduled right total hip arthroplasty with orthopedics. The hospitalist service was consulted to assist in managment of chronic conditions while inpatient. POD 1 03/15: Patient is seen today resting in bed just finished with therapy. She has been up and ambulating in the hallways without complaints. She denies dizziness, shortness of breath, and chest pain. She is tolerating oral intake and has an appetite. She says that her pain is well controlled with her current regimen. She has no questions or concerns at this time. Orthopedics is planning on discharging later today. Medicine was consulted for management of chronic conditions while inpatient. Review of Systems Review of Systems: All systems reviewed & are unremarkable except as noted in HPI and below PMFSH Past Medical History Medical History (Updated 03/15/23 @ 07:30 by MALICK Kramer) Anemia Anxiety Arthritis of left hip Depression Depression with anxiety Encounter to establish care Hip arthritis Hyperlipidemia Hyperlipidemia Hypertension Hypertension Normal cardiac stress test (2018) Normocytic anemia Osteoarthritis Overweight (BMI 25.0-29.9) Shingles Type 2 diabetes mellitus Hemoglobin A1c was 7.3% on 03/11/2021. Surgical History Surgical History (Updated 03/15/23 @ 07:47 by Daksha Mann APRN) History of hysterectomy History of total left hip arthroplasty (03/30/21) Family History Family History Other Diabetes mellitus Hypertension Social History Social History (Reviewed 03/12/23 @ 11:29 by
[2023-03-15 08:22] VITALS: BP 115/47; PULSE 70; O2SAT 100
[2023-03-15] MEDS: APIXABAN 2.5 MG TABLET PO (08:24)
[2023-03-15] MEDS: metFORMIN HCL 500 MG TABLET 1000 MG PO (08:24)
[2023-03-15] MEDS: CHOLECALCIFEROL 1,000 UNITS TABLET 1000 UNITS PO (08:25)
[2023-03-15] MEDS: SENNA/DOCUSATE SODIUM TABLET 2 TAB PO (08:25)
[2023-03-15] MEDS: FAMOTIDINE 20 MG TABLET PO (08:25)
[2023-03-15] MEDS: SERTRALINE HCL 50 MG TABLET PO (08:25)
[2023-03-15] MEDS: FLUTICASONE PROPIONATE 0.05% NA SPR 16 GM BTL (*BKC) 1 SPRAY NASAL (08:26)
[2023-03-15] MEDS: CELECOXIB 200 MG CAPSULE PO (08:26)
[2023-03-15] MEDS: polyethylene glycoL 3350 17 GM POWD.PACK PO (08:27)
[2023-03-15] MEDS: VANCOMYCIN 1,000 MG/NS 250 ML 1,000 MG/250 ML BAG 200 MG IVPB (08:57)
--- NOTE | 2023-03-15 13:33 | PCPTNOTE ---
On 03/15/23, the student, SANDRA Lorenzo, provided care and completed [facility] documentation on this patient. I have reviewed the student's documentation and agree with the findings.
== END 2023-03-15 14:20 | disposition home or self-care (01) ==
LOC: ANHSURGERY 09:58 → ANH2MED 16:56
PROVIDERS: Physician Assistant Surgical; PCP Nurse Practitioner Family; Visit Provider Orthopaedic Surgery
PROC: (CPT 27130; principal; 2023-03-14 12:00)
DX: M16.11 Unilateral primary osteoarthritis, right hip (principal); I10 Essential (primary) hypertension; E11.9 Type 2 diabetes mellitus without complications; E78.5 Hyperlipidemia, unspecified; F41.8 Other specified anxiety disorders; D64.9 Anemia, unspecified; Z79.84 Long term (current) use of oral hypoglycemic drugs; Z79.82 Long term (current) use of aspirin; Z79.899 Other long term (current) drug therapy; Z87.891 Personal history of nicotine dependence
CPT/HCPCS: 27130; 36415; 73501; 80048; 82948; 85025; 86850; 86900; 86901; 97110; 97161; 97165; 97530; 97535; 99199; A9270; C1776; J0171; J0330; J0360; J0690; J1100; J1170; J1885; J2270; J2405; J2795; J3010; J3370; J7030; J7040; J7120

== ENCOUNTER 2023-04-03 13:18 | Emergency (ER) | payer MEDICARE, OTHER, SELFPAY ==
--- NOTE | 2023-04-03 13:21 | ED.WOUNDLAC ---
HPI - Wound/Laceration General Chief Complaint: Wound/Laceration Stated Complaint: finger laceration Time Seen by Provider: 04/03/23 13:21 Source: patient Mode of arrival: ambulatory Limitations: no limitations History of Present Illness HPI narrative: Luciana is a 72-year-old female patient presenting to the clinic today with complaints of a right thumb laceration that occurred last night. Bleeding is controlled. She reports she was cutting an onion with a slicer and cut her thumb. Has a skin avulsion to the right distal thumb Related Data Home Medications Medication Instructions Recorded Confirmed carvedilol 3.125 mg tablet 3.125 mg PO BID 03/11/21 04/03/23 ferrous sulfate 325 mg (65 mg 325 mg PO DAILY 12/14/22 04/03/23 iron) tablet atorvastatin 20 mg tablet 40 mg PO HS 02/19/23 04/03/23 cholecalciferol (vitamin D3) 25 25 mcg PO DAILY 02/19/23 04/03/23 mcg (1,000 unit) tablet Allergies Allergy/AdvReac Type Severity Reaction Status Date / Time No Known Allergies Allergy Verified 04/03/23 13:24 Review of Systems Review of Systems: Pertinent positives per HPI. Patient denies any fever, chills, rash, headache, visual changes, dizziness, cough, runny nose, sore throat, shortness of breath, chest pain, palpitations, nausea, vomiting, diarrhea, constipation, abdominal pain, or any urinary issues. [facility] Past Medical History Medical History Anemia Anxiety Arthritis of left hip Depression Depression with anxiety Encounter to establish care Hip arthritis Hyperlipidemia Hyperlipidemia Hypertension Hypertension Normal cardiac stress test (2019) Normocytic anemia Osteoarthritis Overweight (BMI 25.0-29.9) Shingles Type 2 diabetes mellitus Hemoglobin A1c was 7.3% on 03/11/2021. Surgical History Surgical History History of hysterectomy History of total left hip arthroplasty (03/30/21) Family History Family History Other Diabetes mellitus Hypertension Social History Social History (Reviewed 04/03/23 @ 13:22 by ANGEL Gunter Social History: Surrogate decision maker: Sandeep Pat, son. Code status: Full code. Smoking packs per day: 1.5 Smoking cigarettes per day: 30.0 Years smoked: 40 Smoking pack-years: 60.00 Smoking status: Former smoker Tobacco type: cigarettes Smoking end date: 09/03/10 Additional smoking assessment comments: DENIES ANY FORM OF TOBACCO USE Alcohol intake: never Alcohol use details: Drank socially in the past. Substance use: never Substance use type: does not use Lack of Transportation: No Lack of Food: Never True Current Housing: I Have Housing Concerned About Future Housing: No Difficulty Paying Gas/Electric Bills: No Difficulty Paying for Meds: No Currently Unemployed: No Education: High School Diploma/GED Difficulty w/ Childcare or Family Care: No Living arrangements: with family Additional living arrangements comments: Resides in [place] with her son. Additional occupation/education comments: Retired. Spiritual care concerns: No Comments At the time of my signature, I reviewed and agree with the nursing past medical, surgical, social, and family history. There is no relevant family history pertinent to the patient complaint. Exam Narrative: General: Well-developed, well nourished, in no apparent distress Head: Normocephalic, atraumatic. Cardio: Regular rate and rhythm, s1 and s2 normal, no murmur appreciated. Resp: Clear to auscultation bilaterally, no rhonchi, rales, wheezing or rubs. Integumentary: [place], warm, and dry, skin avulsion to the right distal thumb measuring 1x 0.5cm. bleeding controlled, no redness, swelling, or discharge, tender to palpation Course Course Emergency Course: P
[2023-04-03 13:26] VITALS: BP 117/89; PULSE 89; RESP 18; TEMP 36.1; O2SAT 100
== END 2023-04-03 13:43 | disposition home or self-care (01) ==
PROVIDERS: Emergency Provider Nurse Practitioner Family; PCP Nurse Practitioner Family
DX: S61.001A Unspecified open wound of right thumb without damage to nail, initial encounter (principal); W27.8XXA Contact with other nonpowered hand tool, initial encounter; M16.12 Unilateral primary osteoarthritis, left hip; E78.5 Hyperlipidemia, unspecified; I10 Essential (primary) hypertension; E11.9 Type 2 diabetes mellitus without complications; Z87.891 Personal history of nicotine dependence; Z96.642 Presence of left artificial hip joint
CPT/HCPCS: 99212; G0463

== ENCOUNTER 2024-11-19 08:56 | Outpatient (CLI) | payer MEDICARE, OTHER, SELFPAY ==
--- NOTE | ~2024-11-19 | MM_ITS ---
EXAMINATION: MM screening romel BI w kathrine HISTORY: Screening TECHNIQUE: Craniocaudal and mediolateral oblique 3-D tomosynthesis images were obtained and synthetic 2-D images were generated. CAD analysis was submitted and interpreted. COMPARISON: No prior mammogram is available for comparison at this institution. BREAST PARENCHYMAL COMPOSITION: Not dense: There are scattered areas of fibroglandular density. FINDINGS: There are benign bilateral breast calcifications. There is a benign intramammary lymph node in the upper outer quadrant of the left breast. There is no evidence of suspicious mass, calcificati on, or architectural distortion to suggest malignancy in either breast. There has been no suspicious interval change. IMPRESSION: 1. No mammographic evidence of malignancy. 2. Recommend routine screening mammography in one year. BI-RADS Category 2: Benign finding(s). Reviewed, dictated and finalized at location B.
--- OUTSIDE RECORDS SUMMARY | 2024-11-19 09:36 | XMS_ITS ---
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 Name Role Phone Obdulia Giordano Primary Care Provider Zion Barr Allergies No Known Allergies REASON FOR VISIT Callus on right foot Medications Medication SIG (Take, Route, Fr equency, Duration) Notes Start Date End Date Status metFORMIN HCl Active Losartan Potassium A ctive Sertraline HCl Activ e Atorvastatin Calcium Active Problems Problem Type SNOMED Code ICD Code Onset Dates Problem Status W/U Status Risk Notes Problem 640595025 Porokeratosis (Q82.8) Active confirmed Vital Signs Height 63 in 10/22/2023 Weight 160 lbs 10/22/2023 BMI 28.34 kg/m2 10/22/2023 Encounters Encounter Location Date Provider Diagnosis [address] [facility] [address] [address] 10/22/2023 Zion Mejia Porokeratosis Q82.8 ; Left foot pain M79.672 and Type 2 diabetes mellitus with unspecified complications E11.8 Assessments Encounter Date Diagnosis (ICD Code) Assessment Notes Treatment Notes Treatment Clinical Notes Section Notes 10/22/2023 Porokeratosis (ICD-10 - Q82.8) I recommended initial treatment of the lesion(s) with Cantharone. Discussed the protocol for Cantharone treatment as well as potential for pain and blistering and discussed post application care instructions. Patient agreed to treatment of the lesions with Cantharone. Adhesive felt given for offloading. 10/22/2023 Left foot pain (ICD-10 - M79.672) 10/22/2023 Type 2 diabetes mellitus with unspecified complications (ICD-10 - E11.8) Diabetic foot education was discussed including the nature of increased risk of developing foot problems due to the damage nerves and vessels of the feet caused by diabetes. The importance of daily self foot exams was stressed. Additionally, the patient was encouraged to control the blood sugar as well as possible and I explained the direct correlation between the incidence of diabetic foot complications and how well the blood sugar is controlled. I encouraged the patient to walk for exercise to help improve circulation to the feet as well as to help control excess blood sugar which I explained may also help to reduce or slow the progression of neuropathy symptoms. Additionally I recommended daily application of lotion to the feet to keep skin well hydrated. Plan Of Treatment Treatment Notes Assessment Notes Porokeratosis I recommended initial treatment of the lesion(s) with Cantharone. Discussed the protocol for Cantharone treatment as well as potential for pain and blistering and discussed post application care instructions. Patient agreed to treatment of the lesions with Cantharone. Adhesive felt given for offloading. Type 2 diabetes mellitus wit h unspecified complications Diabetic foot education was discussed including the nature of increased risk of developing foot problems due to the damage nerves and vessels of the feet caused by diabetes. The importance of daily self foot exams was stressed. Additionally, the patient was encouraged to control the blood sugar as well as possible and I explained the direct correlation between the incidence of diabetic foot complications and how well the blood sugar is controlled. I encouraged the patient to walk for exercise to help improve circulation to the feet as well as to help control excess blood sugar which I explained may also help to reduce or slow the progression of neuropathy symptoms. Additionally I recommended daily application of lotion to the feet to keep skin well hydrated. Next Appt Details Follow Up: 2 Weeks, Reason: Catharone follow up Procedure Notes * Category Sub-Category Detail Notes LESION DESTRUCTION: Location & # of lesions: Lef t foot: Lateral plantar surface; Total # of lesions treated = 1 Destruction by cantharone: Lesions pared down with a sterile blade. Any bleeding controlled with Lumicaine as necessary , Cantharone was applied to each lesion with the back end of a cotton tipped applicator and each lesion was then covered with a bandage, Patient advised to keep affected area dry for at least 6-8 hours and then wash area with soap and water , Patient also advised if significant pain or blistering develops area may be washed earlier if necessary Progress Notes * Luciana PATDOB:[birth year] (73 yo F)Acc No.[id number]:10/22/2023 Progress Notes Patient: Luciana ROMO Provider: Dickson Mejia DPM :1950 A ge:73 Y S ex:Female Date:10/22/2023 Address:[address] [place], [place] [id number] Pcp:Obdulia Giordano Subjective: * Chief Complaints: * C allus on right foot * HPI: Michael Rosenthal assisting with visit:: HPI/Rooming: Aysha rodríguez reason for visit:: 73 year old diabetic female PTO with chief complaint of a painful callus on the left lateral side of her foot. She describes it as a dull, intermittent pain. She has been dealing witht his for several months, denies history of calluses. Patient states she has been wearing a flat pair of tennis shoes, states they cause pain in the callus location. She moisturizes her feet. Denies taking anythig for pain. She does not use orthotics. Denies tingling in the feet. * Medical History: * Medications: T akingmetFORMIN HCl Losartan Potassium Sertraline HCl Atorvastatin Calcium Medication List reviewed and reconciled with the patientTaking metFORMIN HCl Taking Losartan Potassium Taking Sertraline HCl Taking Atorvastatin Calcium Medication List reviewed and reconciled with the patient * Allergies: N .K.D.A.no[Allergies Verified] Objective: * Vitals: W t:160lbs, Wt-k.57 kg, Ht: 63 in, BMI:28.34Index. * Examination: G eneral Examination: Constitutional / Appearance: N o acute distress , Well nourished, Appropriate personal hygiene. Mental status: C ooperative, Oriented to person, place and time, Mood and affect: normal, Judgement and intellect: normal with appropriate response to questions. Shoes today: T latrice shoes. L ower Extremity VASCULAR: : Pulses: D P pulse palpable b/l, PT pulse palpable b/l. Temperature gradient: w arm from proximal to distal, bilateral. Pedal hair: s parse / absent bilateral. Venous insufficiency edema: insignificant bilateral. L ower Extremity DERM: : Skin: r elatively dry, thin, atrophic, no suspicious lesions, bilateral. Nails: M inimally thickened / dystrophic and appear relatively short w/o paronychia. Hyperkeratotic lesions LEFT foot: n o significant hpk lesions noted. Hyperkeratotic lesions RIGHT foot: a symptomatic medial hallux IPJ , sub 2nd MTH. Evidence of porokeratosis: l eft foot - plantar, lateral column, with nucleated waxy appearing central core noted upon paring of lesion, acute pain with palpation, No thrombosed capillaries, No evidence of foreign body penetration or SOI.. ? L ower Extremity NEURO: : Monofilament test (10 gram pressure) - - revealed intact sensation to, entire foot, bilateral. Vibration perception: - - noted significantly diminished / absent per evaluation with 128Hz tuning fork applied to distal hallux compared to ipsilateral medial malleolus, @ bilateral feet. L ower Extremity MSK: : Gait G ait unremarkable with normal posture, propulsion and balance. Foot type: B ilateral lower extremity exhibits, rectus foot and normal arch height. Bunion / HAV deformity: R ight foot exhibits , lateral deviation of the hallux , prominent and hypertrophic medial eminence of 1st MTH , No pain with palpation of medial eminence. , No joint pain or crepitus with ROM of the hallux , No significant edema or erythema noted.. Assessment: * Assessment: 1. P orokeratosis - Q82.8 (Primary) 2 . L eft foot pain - M79.672 3 . T ype 2 diabetes mellitus with unspecified complications - E11.8 Plan: * Treatment: 2. T ype 2 diabetes mellitus with unspecified complications Notes: Diabetic foot education was discussed including the nature of increased risk of developing foot problems due to the damage nerves and vessels of the feet caused by diabetes. The importance of daily self foot exams was stressed. Additionally, the patient was encouraged to control the blood sugar as well as possible and I explained the direct correlation between the incidence of diabetic foot complications and how well the blood sugar is controlled. I encouraged the patient to walk for exercise to help improve circulation to the feet as well as to help control excess blood sugar which I explained may also help to reduce or slow the progression of neuropathy symptoms. Additionally I recommended daily application of lotion to the feet to keep skin well hydrated. * Procedures: L ESION DESTRUCTION:: Location & # of lesions: L eft foot: Lateral plantar surface; Total # of lesions treated = 1. Destruction by cantharone: L esions pared down with a sterile blade. Any bleeding controlled with Lumicaine as necessary , Cantharone was applied to each lesion with the back end of a cotton tipped applicator and each lesion was then covered with a bandage, Patient advised to keep affected area dry for at least 6-8 hours and then wash area with soap and water , Patient also advised if significant pain or blistering develops area may be washed earlier if necessary. * Procedure Codes: 1 7110 DESTRUCT LESION, 1-14 * Follow Up: 2 Weeks (Reason: Catharone follow up) * Images: * ING TURNER AND COUNTER Sign off status: Completed true * Provider: Dickson Mejia DPM Date: 0 10/22/2023 Generated for Luiza bennett/Len/Floriitting on: 0 11/19/2024 09:35 AM CDT History and Physical Notes * HPI (History of Present Illness) Category Sub-Category Detail Notes Category Not es Primary reason for visit: 73 year old diabetic female PTO with chief complaint of a painful callus on the left lateral side of her foot. She describes it as a dull, intermittent pain. She has been dealing witht his for several months, denies history of calluses. Patient states she has been wearing a flat pair of tennis shoes, states they cause pain in the callus location. She moisturizes her feet. Denies taking anythig for pain. She does not use orthotics. Denies tingling in the feet. MA assisting with visit: HPI/Rooming: Jonny Examination Category Sub-Category Detail Notes Category Not es General Examination Mental status: Cooperative, Oriented to person, place and time, Mood and affect: normal, Judgement and intellect: normal with appropriate response to questions Shoes today: Tennis shoes Constitutional / Appearance: No acute di stress , Well nourished, Appropriate personal hygiene Lower Extremity VASCULAR: Venous insufficiency edema: insignificant bilateral Pulses: DP pulse palpable b/ l, PT pulse palpable b/l Temperature gradient: warm from proximal to distal, bilateral Pedal hair: sparse / absent bila teral Lower Extremity NEURO: Monofilament test (10 gram pressure) - - revealed intact sensation to, entire foot, bilateral Vibration perception: - - noted signific antly diminished / absent per evaluation with 128Hz tuning fork applied to distal hallux compared to ipsilateral medial malleolus, @ bilateral feet Lower Extremity MSK: Foot type: Bilateral l ower extremity exhibits, rectus foot and normal arch height Bunion / HAV deformity: Right foot exhib its , lateral deviation of the hallux , prominent and hypertrophic medial eminence of 1st MTH , No pain with palpation of medial eminence. , No joint pain or crepitus with ROM of the hallux , No significant edema or erythema noted. Gait Gait unremarkable wi th normal posture, propulsion and balance Lower Extremity DERM: Skin: relatively dry, thin, atrophic, no suspicious lesions, bilateral Nails: Minimally thickened / dystrophic and appear relatively short w/o paronychia Hyperkeratotic lesions LEFT foot: no sig nificant hpk lesions noted Evidence of porokeratosis: left foot - p lantar, lateral column, with nucleated waxy appearing central core noted upon paring of lesion, acute pain with palpation, No thrombosed capillaries, No evidence of foreign body penetration or SOI. Hyperkeratotic lesions RIGHT foot: asymp tomatic medial hallux IPJ , sub 2nd MTH
--- OUTSIDE RECORDS SUMMARY | 2024-11-19 09:36 | XMS_ITS | Patient Health Record ---
Author Organization 1 OF Dickson summers [facility] Address [address] 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 > 10 years Problems Problem Type SNOMED Code ICD Code Onset Dates Problem Status W/U Status Risk Notes Problem [id number] Porokeratosis (Q82.8) Active confirmed Problem 88042350 Type 2 diabetes mellitus with unspecified complications (E11.8) Active confirmed Plan Of Treatment No Information Insurance Providers Payer Name Payer Address Payer Phone Subscriber Number Group Number Insured Name Patient Relationship to Insured Coverage Start Date Coverage End Date Medicare [address] [place] [id number] [place], [place] Self - patient is the insured 5 [address] [place] [address] [id number] [place], [place] Self - patient is the insured Medical (General) History Medical History History ICD Code depression Diabetes hypertension hyperlipidemia
--- OUTSIDE RECORDS SUMMARY | 2024-11-19 09:36 | XMS_ITS | Data Portability ---
Author Organization [facility] [place] Address [address] [place] [address] Assessment No assessment recorded. Plan of Treatment Reminders Order Date Submit Date Provider Last Modified By Organization Details Last Modified Time Details Appointments None recorded. Lab None recorded. Referral urogynecolo gist referral 2023 GRETCHEN Be MD, [address], [place], [address], 4 05:35:18 Procedures None recorded. Surgeries None recorded. Imaging None recorded. Medication Orders clobetasol 0.05 % topical ointment 2024 025 [facility], [address], [address], 5 14:30:25 estradiol 0.01% (0.1 mg/gram) vaginal cream 2023 024 [facility]18, [address], [address], 4 16:34:38 Patient TargetsNo targets recorded. Patient InstructionsNo instructions recorded. Reason for Referral Urogynecologist Referral for Mixed urinary incontinence Referring Physician: Phyllis Ureña, BULKER, Encounter Date: 08/07/2024 Results Created Date Observation Date Name Description Value Unit Range Abnormal Flag Note LastModifiedBy Organization Detail LastModifiedTime 11/06/1911/05/2024 [facility], LAURA bacterial vaginosis (bv), tma Negati ve negati ve This test detec ts ribos omal RNA from bacte rita assoc iated with bacte rial vagin osis (BV), inclu ding Lacto bacil gopal (L. gasse ri, L. crisp atus and L. jense acsandra), Gardn erell a vagin osmany, and Atopo bium vagin ae by Trans cript ion-M ediat ed Ampli ficat ion (TMA) . A singl e quali tativ e resul t is repor sandra based on instr ument softw are to deter mine BV posit nila or negat nila statu s. Not Available [facility] (Lab) [address] [place], [address], 11/06/2024 14:08:47 11/06/19 25 11/05/2024 [facility] SW[facility], LAURA sobeida species, tma Negati ve negati ve Not Available [facility] (Lab) [address] [place], [address], 11/06/2024 14:08:47 11/06/19 25 11/05/2024 [facility], LAURA sobeida glabrata, tma Negati ve negati ve Not Available [facility] (Lab) [address] [place], [address], 11/06/2024 14:08:47 11/06/19 25 11/05/2024 [facility], LAURA trichomonas vaginalis, tma Negati ve negati ve This assay tests for and diffe renti ates betwe en Falguni da glabr marie, the Falguni da speci es group (C. albic ans, C. tropi calis , C. parap elva is, C. dubli twila is), and Trich omona s vagin osmany by Trans cript ion-M ediat ed Ampli ficat ion (TMA) . Not Available [facility] (Lab) [address] [place], [address], 11/06/2024 14:08:47 Result Notes None recorded. Procedures Surgical History Date Name Laterality Status Provider Name and Address Organization Details Recorded Time 08/03/19 98 Total Hysterectomy completed LUIS Gonzalez [address], [place], [address], [facility] 08/07/2024 16:13:57 08/03/19 98 oophorectomy completed LUIS Gonzalez [address], [place], [address], [facility] 08/07/2024 16:14:29 Imaging Results None recorded. Procedure Notes None recorded. Medical Equipment None Reported. Allergies No known drug allergies Medications Name Sig Start Date Stop Date Status Note LastModified by Organization Details LastModified Time atorvastati n 40 mg tablet Take 1 tablet every day by oral route. active Not Available Not Available No t Available carvedilol 3.125 mg tablet Take 1 tablet twice a day by oral route. active Not Available Not Available No t Available benzonatate 100 mg capsule TAKE 1 CAPSULE BY MOUTH THREE TIMES DAILY NEEDED FOR COUGH 08/07 completed Not Available Not Available Not Available metformin 1,000 mg tablet TAKE 1 TABLET BY MOUTH TWICE DAILY active Not Available Not Available No t Available losartan 25 mg tablet Take 1 tablet every day by oral route. active Not Available Not Available No t Available clobetasol 0.05 % topical ointment APPLY A THIN LAYER TOPICALLY TO AFFECTED AREA TWICE DAILY active Not Available Not Available No t Available estradiol 0.01% (0.1 mg/gram) vaginal cream APPLY 1 GRAM VAGINALLY AT BEDTIME FOR 2 WEEKS, THEN APPLY 1 GRAM VAGINALLY 2-3 TIMES PER WEEK MAINTENAN CE DOSE active Not Available Not Available No t Available methylpredn isolone 4 mg tablets in a dose pack TAKE BY MOUTH DIRECTED ON INSIDE OF PACKAGE 08/07 completed Not Available Not Available Not Available sertraline active Not Available Not Av ailable Not Available fluconazole active Not Available Not A vailable Not Available semaglutide (weight loss) 0.5 mg/0.5 mL subcutaneou s pen injector Inject by subcutane ous route. active Not Available Not Available No t Available Paxlovid 300 mg (150 mg x 2)-100 mg tablets in a dose pack TAKE 3 TABLETS TOGETHER (TWO 150 MG NIRMATREL VIR TABLETS AND ONE 100 MG RITONAVIR TABLET) BY MOUTH TWICE DAILY FOR 5 DAYS. 08/07 completed Not Available Not Available Not Available Vitals Date Recorded Body weight Body mass index (BMI) Body height Systolic blood pressure Diastolic blood pressure Provider Name and Address Organization Details Last Updated DateTime 08/07/2024 10599.11 g 29.9 kg/m2 160.02 cm 134 mm[Hg] 79 mm[Hg] Prema Mensah [facility] 4 16:02:54 Date Recorded Body height Body mass index (BMI) Body weight Systolic blood pressure Diastolic blood pressure Systolic blood pressure Diastolic blood pressure Systolic blood pressure Diastolic blood pressure Provider Name and Address Organization Details Last Updated DateTime 5 160.02 cm 29.9 kg/m2 49575.1 1 g 142 mm[Hg] 75 mm[Hg] 140 mm[Hg] 71 mm[Hg] 132 mm[Hg] 70 mm[Hg] LION Susan [facility] 5 14:39:18 Social History Question Answer Notes LastModified by Organizat ion Details LastModified Time Are You Blind Or Do You Have Difficulty Seeing? No [email or web address] Information not available 08/07/2024 In The 14 Days Before Symptom Onset, Have You Had Close Contact With A Laboratory-confirmed COVID-19 While That Case Was Ill? No [email or web address] Information not available 08/07/2024 In The 14 Days Before Symptom Onset, Have You Had Close Contact With A Person Who Is Under Investigation For COVID-19 While That Person Was Ill? No [email or web address] Information not available 08/07/2024 Have You Been To An Area Known To Be High Risk For COVID-19? No [email or web address] Information not available 08/07/2024 Are You Deaf Or Do You Have Serious Difficulty Hearing? No [email or web address] Information not available 08/07/2024 Do You Use Your Seat Belt Or Car Seat Routinely? Yes [email or web address] Information not available 08/07/2024 Do You Have Smoke And Carbon Monoxide Detectors In Your Home? Yes [email or web address] Information not available 08/07/2024 Do You Use Any Illicit Or Recreational Drugs? No [email or web address] Information not available 08/07/2024 Do You Use Sunscreen Routinely? Yes [email or web address] Information not available 08/07/2024 Sex: Unknown Functional Status Question Answer Note LastModified by Organizat ion Details LastModified Time Do you have difficulty walking or climbing stairs? No [email or web address] Information not available 08/07/2024 Are you able to walk? YESWOREST [email or web address] Information not available 08/07/2024 Are you able to care for yourself? Yes [email or web address] Information not available 08/07/2024 Do you have difficulty dressing or bathing? No Information not available 08/07/2024 Mental Status None recorded. Family History Relationship Description Onset Age of this Age Resolved Age Notes LastModified by Organization Details LastModified Time Mother Diabetes mellitus [email or web address] Not available 2023 15:56:54 Brother Diabetes mellitus [email or web address] Not available 2023 15:57:03 Medical History Condition Response Acid Reflux (GERD) N Allergies (Food, seasonal, environmental ) N Anesthesia Complications N High Cholesterol Y Anemia N Diabetes Y Abuse/Domestic Violence N Hypertension Y Gynecological History Statement/Question Response Abnormal Pap N Date of Last Mammogram Most Recent Bone Density STIs/STDs N Age of first menstrual cycle 13 HPV Vaccine Y Date of Last Pap Smear Current Control Method Hysterectom y LMP Unknown Obstetrics History GPAL:G 3 P 0 0 0 3 Type Value Living 3 Total 3 Past Encounters Encounter ID Performer Location Encounter Start Date Encounter Closed Date Diagnosis/Indication Diagnosis SNOMED-CT Code Diagnosis ICD10 Code Diagnosis Note [id number] LUIS Gonzalez [place] [address] [address] 08/07/2024 15:48:41 08/08/2024 09:39:38 Vulval irritation 821769980 N90.89 health hx obtained and reviewed todayvulva r care guidelines discussedv eg based moisturize r routine reviewedd/ c use of vagisil wash/wipes rx sent for estradiol cream - r/b/a reviewedRT C for f/u in 3-4 months, questions answered Time spent in visit is a total of 30 mins with at least 50% of visit consisting of counseling and review of plan of care. Mixed urin sarah incontinence 860141524 N39.46 referral placed per pt request [id number] LUIS Gonzalez [place] [address] [address] 11/05/2024 13:51:07 11/05/2024 14:35:47 Vulval irritation 284777431 N90.89 continue vaginal estradiol cream for dryness/at rophypossi ble lichen sclerosus based off exam/sympt omsdiscuss ed possible LS with patient, offered vulvar biopsy today. She is going on vacation this week and would like to schedule for when she returns.cl obetasol ointment rx sentvagini tis panel sentquesti ons answeredRT C for vulvar biopsy recommende dBP precaution s reviewed Time spent in visit is a total of 20 mins with at least 50% of visit consisting of counseling and review of plan of care. Health Concerns Section Related Observation LastModified by Organization Detai ls LastModified Time None Recorded Concern Status LastModified by Organization Details LastModified Time None Recorded Advance Directives Directive None Recorded Payers Encounter Date Sequence Insurance Name Policy Number Policy Tilley Covered Member ID Tilley Member ID Guarantor Name 08/07/2024 1 [place] [facility] [id number] [facility] 08/07/2024 2 () [facility] [id number] [facility] 11/05/2024 1 [place] [facility] [id number] [facility] 11/05/2024 2 () [facility] [id number] [facility] Notes Date Note Type Note Provider Name and Address Organization Details Recorded Time 08/07/2024 text/html 74yopresents for evaluation of vulvar itching/irritation /drynesssymptoms present for 3+ yrshas been treated for yeast in the past with no improvement in symptomsuses vagisil wash and wipes, wears pads daily in case of urine leakage (requesting referral to urogyne today to discuss surgical management)not SAh/o hyst BSO, non-cancerous indications neg d/c, odorsneg pelvic pain LUIS Gonzalez [address], [place], [address], [facility] 08/08/2024 09:10:43 11/05/2024 text/html 74yopresents for med checkstarted estradiol vaginal cream at [facility] noticed improvement with dryness but still itching at night neg d/c, odor, pelvic pain LUIS Gonzalez [address], [place], [address], [facility] 11/05/2024 14:39:27 OBGyn Episode Ob Episode Information Episode Created Date Number of Fetuses Patient Bloodtype Patient rh Status Prepregnancy Weight lbs Domestic Partner Domestic Partner Phone Father Name Continuous Pillowcase Cutter Status 08/07/20 24 1 CLOSED Fetus Data First Name Last Name Admitted to NICU Weight (g) Sex Living Outcome Pediatric Complications Fetus ID Race Codes Race Delivery Type M Full Term [id number] Vignesh Calculation Initial Vignesh Date Initial Exam Date Initial Exam Provider Initial Ultrasound Date Last Menstrual Period Date Ultra Sound Weeks Gestation 0 Eighteen To Twenty Week Vignesh Update Ultra Sound Date Fundal Height At Umbil Quickening Date Ultra Sound Latest Weeks Gestation Final Vignesh Confirmed By Final Vignesh Confirmed Date Final Vignesh Date Ultra Sound Latest Days Gestation 0 0 Menstrual History Last Menstrual Date Menses Monthly On Bcp Conception Prior Menses Frequency Hcg Plus Date Menarche Onset Age Delivery Information Delivery Date Delivery Type Labor Anesthesia Weeks Gestation Incision Type Labor Labor Length Hrs Delivered By Post Complications Tubal Sterilization Discharge Date Comments 5 Discharge Information Feeding Method Contraceptive Method Maternal HG B and HCT Levels Ob Episode Information Episode Created Date Number of Fetuses Patient Bloodtype Patient rh Status Prepregnancy Weight lbs Domestic Partner Domestic Partner Phone Father Name Continuous Pillowcase Cutter Status 08/07/20 24 1 CLOSED Fetus Data First Name Last Name Admitted to NICU Weight (g) Sex Living Outcome Pediatric Complications Fetus ID Race Codes Race Delivery Type M Full Term [id number] Vignesh Calculation Initial Vignesh Date Initial Exam Date Initial Exam Provider Initial Ultrasound Date Last Menstrual Period Date Ultra Sound Weeks Gestation 0 Eighteen To Twenty Week Vignesh Update Ultra Sound Date Fundal Height At Umbil Quickening Date Ultra Sound Latest Weeks Gestation Final Vignesh Confirmed By Final Vignesh Confirmed Date Final Vignesh Date Ultra Sound Latest Days Gestation 0 0 Menstrual History Last Menstrual Date Menses Monthly On Bcp Conception Prior Menses Frequency Hcg Plus Date Menarche Onset Age Delivery Information Delivery Date Delivery Type Labor Anesthesia Weeks Gestation Incision Type Labor Labor Length Hrs Delivered By Post Complications Tubal Sterilization Discharge Date Comments 8 Discharge Information Feeding Method Contraceptive Method Maternal HG B and HCT Levels Ob Episode Information Episode Created Date Number of Fetuses Patient Bloodtype Patient rh Status Prepregnancy Weight lbs Domestic Partner Domestic Partner Phone Father Name Continuous Pillowcase Cutter Status 08/07/20 24 1 CLOSED Fetus Data First Name Last Name Admitted to NICU Weight (g) Sex Living Outcome Pediatric Complications Fetus ID Race Codes Race Delivery Type M Full Term [id number] Vignesh Calculation Initial Vignesh Date Initial Exam Date Initial Exam Provider Initial Ultrasound Date Last Menstrual Period Date Ultra Sound Weeks Gestation 0 Eighteen To Twenty Week Vignesh Update Ultra Sound Date Fundal Height At Umbil Quickening Date Ultra Sound Latest Weeks Gestation Final Vignesh Confirmed By Final Vignesh Confirmed Date Final Vignesh Date Ultra Sound Latest Days Gestation 0 0 Menstrual History Last Menstrual Date Menses Monthly On Bcp Conception Prior Menses Frequency Hcg Plus Date Menarche Onset Age Delivery Information Delivery Date Delivery Type Labor Anesthesia Weeks Gestation Incision Type Labor Labor Length Hrs Delivered By Post Complications Tubal Sterilization Discharge Date Comments 2 Discharge Information Feeding Method Contraceptive Method Maternal HG B and HCT Levels
--- OUTSIDE RECORDS SUMMARY | 2024-11-19 09:36 | XMS_ITS ---
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 Name Role Phone Obdulia Giordano Primary Care Provider Zion Barr [phone] Allergies No Known Allergies REASON FOR VISIT porokeratosis Medications Medication SIG (Take, Route, Fr equency, Duration) Notes Start Date End Date Status metFORMIN HCl Active Losartan Potassium A ctive Sertraline HCl Activ e Atorvastatin Calcium Active Vital Signs Height 63 in 11/05/2023 Weight 160 lbs 11/05/2023 BMI 28.34 kg/m2 11/05/2023 Encounters Encounter Location Date Provider Diagnosis 1 OF [facility] [address] [address] 11/05/2023 Zion Mejia Porokeratosis Q82.8 and Callus of foot L84 Assessments Encounter Date Diagnosis (ICD Code) Assessment Notes Treatment Notes Treatment Clinical Notes Section Notes 11/05/2023 Porokeratosis (ICD-10 - Q82.8) Advised patient that the lesion(s) appear resolved. Discussed possibility of recurrence and advised to contact office if symptoms return, otherwise no further f/u necessary for this condition. 11/05/2023 Callus of foot (ICD-10 - L84) Calluses pared and pt advised that pumice stones sold retail in the office have best results when used in the shower. Advised patient that if he/she desires treatment of nails and/or calluses on a regular basis that most insurance will not pay for this service in the absence of pain or infection or qualifying systemic disease with significant risk factors. Plan Of Treatment Treatment Notes Assessment Notes Porokeratosis Advised patient that the lesion(s) appear resolved. Discussed possibility of recurrence and advised to contact office if symptoms return, otherwise no further f/u necessary for this condition. Callus of foot Calluses pared and p t advised that pumice stones sold retail in the office have best results when used in the shower. Advised patient that if he/she desires treatment of nails and/or calluses on a regular basis that most insurance will not pay for this service in the absence of pain or infection or qualifying systemic disease with significant risk factors. Next Appt Details Follow Up: prn, Reason: Procedure Notes * Category Sub-Category Detail Notes PALLIATIVE FOOT CARE: Callus paring: ([id number]) Fi ve or more calluses as noted above reduced with a sterile scalpel blade Progress Notes * Luciana PATDOB:[birth year] (73 yo F)Acc No.[id number]:11/05/2023 Progress Notes Patient: Luciana ROMO Provider: Dickson Mejia DPM :1950 A ge:73 Y S ex:Female Date:11/05/2023 Address:[address] [place] [address] Pcp:Obdulia Giordano Subjective: * Chief Complaints: * P orokeratosis * HPI: Michael Rosenthal assisting with visit:: HPI/Rooming: America mendoza. Mirtha rodríguez reason for visit:: 73 y/o female RTO for f/u of porokeratosis. At last visit, treatment consisted of cantharone to the LT lateral plantar surface. Today pt reports that she is no longer having pain and denies any blistering, although pt reports she cannot see the area so she is not sure. Pt reports that she does have some calluses on B/L big toes that she would like pared down, and pt is aware she will need to pay for this service. * Medical History: * Surgical History: * Hospitalization/Major Diagno stic Procedure: * Medications: T akingmetFORMIN HCl Losartan Potassium [...] with appropriate response to questions. Shoes today: t latrice shoe. Exam unchanged from prior visit: w ith no significant changes in appearance or condition of feet . L ower Extremity DERM: : Hyperkeratotic lesions LEFT foot: s ub 2nd MTH, medial hallux IPJ, plantar toe pulp 4th toe. Hyperkeratotic lesions RIGHT foot: s ub 2nd MTH, m edial hallux IPJ, plantar toe pulp 4th toe. Assessment: * Assessment: 1. P orokeratosis - Q82.8 (Primary) 2 . C allus of foot - L84 Plan: * Treatment: 2. C allus of foot Notes: Calluses pared and pt advised that pumice stones sold retail in the office have best results when used in the shower. Advised patient that if he/she desires treatment of nails and/or calluses on a regular basis that most insurance will not pay for this service in the absence of pain or infection or qualifying systemic disease with significant risk factors. * Procedures: P ALLIATIVE FOOT CARE:: Callus paring: ( [id number]) Five or more calluses as noted above reduced with a sterile scalpel blade. * Procedure Codes: C 0001 Nail & Callus Care * Preventive Medicine: Screenings: F ALL RISK SCREENING Fall Risk Assessment: N o falls in the past year * Follow Up: p rn * Images: * N COORDINATOR Sign off status: Completed true * Provider: Dickson Mejia DPM Date: 11/05/2023 Generated for Luiza bennett/Len/Floriitting on: 11/19/2024 09:36 AM CDT History and Physical Notes * HPI (History of Present Illness) Category Sub-Category Detail Notes Category Not es Primary reason for visit: 73 y/o female RTO for f/u of porokeratosis. At last visit, treatment consisted of cantharone to the LT lateral plantar surface. Today pt reports that she is no longer having pain and denies any blistering, although pt reports she cannot see the area so she is not sure. Pt reports that she does have some calluses on B/L big toes that she would like pared down, and pt is aware she will need to pay for this service. MA assisting with visit: HPI/Rooming: Edelmira Examination Category Sub-Category Detail Notes Category Not es General Examination Mental status: Cooperative, Oriented to person, place and time, Mood and affect: normal, Judgement and intellect: normal with appropriate response to questions Shoes today: tennis shoe Exam unchanged from prior visit: with no significant changes in appearance or condition of feet Constitutional / Appearance: No acute di stress , Well nourished, Appropriate personal hygiene Lower Extremity DERM: Hyperkeratotic lesions LEF T foot: sub 2nd MTH, medial hallux IPJ, plantar toe pulp 4th toe Hyperkeratotic lesions RIGHT foot: sub 2 nd MTH, medial hallux IPJ, plantar toe pulp 4th toe
--- OUTSIDE RECORDS SUMMARY | 2024-11-19 09:36 | XMS_ITS | Data Portability ---
Author Organization [place] [facility], Main Office Address [address] [place] [address] Assessment Encounter Date Assessment Date Assessment LastModified by Organization Details LastModified Time 01/19/2023 01/19/2023 Impression: Patient has severe osteoarthritis of the right hip and her symptoms are severe. She has decided she would rather proceed with hip replacement surgery than continue living with the symptoms of progressively worsened. She has had no medical issues of, over the last 1.5 Years since her left hip replacement. I reviewed risks of surgery with her in detail. She does have diabetes and as such she is at a little bit higher risk for infection and we will use extended oral antibiotics after surgery to mitigate this risk. She states that her teeth are fine. She realizes that she needs to take antibiotics before dental work. Her last hemoglobin A1c was 6.2. She does have history of anemia which does put her at a little bit higher risk for needing transfusion after surgery we discussed that we would use Cell Saver to mitigate that risk. She has no personal or family history of DVT denies use preference for using Eliquis for 5 weeks after surgery for prophylaxis and we would plan to use Celebrex for 10 days after surgery for prophylaxis against heterotopic ossification lesser is a contraindication. She has no known drug allergies. Risk of fracture leg-length discrepancy dislocation component where and breakage and need for revision surgery were discussed. Risk of numbness around the incision and nerve injury were discussed. Risk of medical complications Such as heart attack stroke pulmonary embolism and were reviewed. We will have her stop her Aleve 7 days before surgery. Would like her to see her primary care physician Dr. Hopson before surgery. Will proceed as discussed. 40 minutes were spent in total care this patient more than half the time spent in [id number] care. Not available 01/21/2023 10:10:19 03/26/2023 03/26/2023 Patient returns. She is 12 days out of her right total hip replacement. She is doing well. She is walking at home with a cane quite a bit. She will use the walker when she feels the hip is a little bit sore. She does complain of pain in the front of her knee that radiates down the coleman at night as a ache and throbbing. She only occasionally takes the Tylenol. She forgets to take it. She takes between 3 and for the oxycodone 5 mg per day. She complains that does not last but I recommend that she try taking the Tylenol on a scheduled basis as we have prescribed to her and that may give her more consistent pain control. On exam she has no swelling leg at all foot and ankle calf without any edema. The hip incision is nicely healed looks fine. She is walking well with a walker with a normal stepping manny. She had no effusion her knee full range of motion no significant pain with patellofemoral inhibition test no pain with patellofemoral grind. She is not feeling any the throbbing today. I would recommend that she use the walker as long she is feeling pain take a little bit of weight off the hip she is going to use the Tylenol as scheduled basis. She has finished the Keflex and the Celebrex for HO prophylaxis I have given her refill of the oxycodone as. I will see her back in 2 weeks assess her progress with x-ray right hip and pelvis at that time. Not available 03/26/2023 16:26:26 04/11/2023 04/11/2023 HPI: Patient returns. She is 1 month out from right anterior total hip arthroplasty. Overall doing well. She still has little bit of soreness in the proximal thigh, she notices this especially with going up stairs. She is able down stairs 1 after the other without any problems. Walking flat level ground is minimally discomfort. She still uses her cane when she is out of the house more as a comfort measure rather than relying on it for any weight-bearing. She has 1 more week Eliquis. Physical exam: Patient is walking very well today. She walked to the x-ray department without cane is walking very smoothly. There was no increased swelling in either lower extremity. Impression: Patient is doing well 1 month out right anterior total hip arthroplasty. She will finish up her 5 week course of Eliquis. I did refill her pain medicine today per her request. She may continue to increase Her activities as tolerated. She can completely wean off the cane as her comfort allows. we will see her back in a month for re-evaluation. Not available 04/11/2023 11:33:37 05/11/2023 05/11/2023 HPI: Patient returns. She is 2 months out from right anterior total hip arthroplasty. She little bit increased soreness last night. She cut the grass and did the edging and she was done she was having quite a bit of soreness in the proximal thigh. She has difficult time going up stairs but was able walk flat level ground without any discomfort. This morning it is already improved. She is able go up the steps with only minimal discomfort. Otherwise she has been doing very well happy with her hip replacement having no symptoms. Physical exam: Patient walking very well today. Again complaining of just minimal soreness in the proximal thigh. Increased swelling in either lower extremity. Impression: Patient is doing well 2 months out right anterior total hip arthroplasty. I think she just over did it with her activities causing some soreness in the hip flexor muscles. It has already improved this morning so I think will continue to improve. Overall she has done well and is happy with her results. We will plan on seeing her back at her 1 year anniversary or sooner if she has problems. Not available 05/11/2023 09:53:58 Plan of Treatment Reminders Order Date Submit Date Provider Last Modified By Organization Details Last Modified Time Details Appointments None recorded. Lab None recorded. Referral None recorded. Procedures None recorded. Surgeries None recorded. Imaging XR, hip + pelvis, unilateral 2022 023 [email or web address] [facility] [place], [address], [place], [address], 14:31:39 XR, hip + pelvis, unilateral 2022 023 [email or web address] [facility] [place], [address], [place], [address], 3 09:35:58 Medication Orders oxycodone 5 mg tablet [address] [facility], [address], [address], 09:37:17 Patient TargetsNo targets recorded. Patient InstructionsNo instructions recorded. Reason for Referral None Reported. Results Created Date Observation Date Name Description Value Unit Range Abnormal Flag Note LastModifiedBy Organization Detail LastModifiedTime 04/06/20 22 XR, hip + pelvi s, unila teral No observ ation record ed. [id number] [facility] [address], [place], [address], 11/01/2022 22:44:40 01/20/20 23 XR, hip + pelvi s, unila teral No observ ation record ed. [email or web address] [facility] [place] [address] [facility] [address], [place], [address], 01/21/2023 10:05:37 03/07/20 23 11/17/2022 elect ashley preston am No observ ation record ed. [email or web address] Not Available 2022 18:00:38 03/14/20 23 03/14/2023 XR, hip + pelvi s, unila teral No observ ation record ed. [address], [place], [address], 03/16/2023 13:18:20 03/14/20 23 03/14/2023 XR, hip + pelvi s, unila teral No observ ation record ed. [address], [place], [address], 03/20/2023 13:08:40 04/11/20 23 XR, hip + pelvi s, unila teral No observ ation record ed. [email or web address] [facility] [place] [address] [facility] [address], [place], [address], 04/11/2023 11:32:10 Result Notes None recorded. Problems Name Problem SNOMED Code Status Onset Date Resolution Date Notes Provider Name and Address Organization Details Recorded Time Pain in right hip joint [id number] Active 2022 Yasemin Orta, MEI king, [place] [facility] 10:45:05 Problem Notes None recorded. Procedures Surgical History Date Name Laterality Status Provider Name and Address Organization Details Recorded Time Hand completed Not Available [facility] 09/2022 22:41:51 Imaging Results Imaging Date Name Status LastModified by Organization Details LastModified Time 04/06/2022 XR, hip + pelvis, unilateral completed [id number] [facility] [address], [place], [address], 11/01/2022 22:44:40 01/19/2023 XR, hip + pelvis, unilateral completed [email or web address] [facility] [place] [address] [facility] [address], [place], [address], 01/21/2023 10:05:37 11/17/2022 electrocardiogram completed [email or web address] Informa tion not available 03/07/2023 18:00:38 03/14/2023 XR, hip + pelvis, unilateral completed [email or web address] [address] [place] [address], [address], 03/16/2023 13:18:20 03/14/2023 XR, hip + pelvis, unilateral completed [email or web address] [place] [address] [facility] [address], [address], 03/20/2023 13:08:40 04/11/2023 XR, hip + pelvis, unilateral completed [email or web address] [facility] [place] [address] [facility] [address], [place], [address], 04/11/2023 11:32:10 Procedure Notes None recorded. Medical Equipment None Reported. Allergies No known drug allergies Medications Name Sig Start Date Stop Date Status Note LastModified by Organization Details LastModified Time celecoxib 200 mg capsule TAKE 1 CAPSULE BY MOUTH ONCE DAILY 03/26 completed Not Available Not Available Not Available atorvastati n 20 mg tablet Take 1 tablet every day by oral route. 2020 active Not Available Not Available Not Avai lable tizanidine 2 mg tablet TAKE 1 TABLET (2 MG) BY MOUTH EVERY 8 HOURS NEEDED FOR SPASM. 04/28 completed Not Available Not Available Not Available meloxicam 15 mg tablet Take 1 tablet every day by oral route. 03/24 completed Not Available Not Available Not Available acetaminoph en 500 mg tablet TAKE 2 TABLETS BY MOUTH EVERY 6 HOURS 04/14 completed Not Available Not Available Not Available carvedilol 3.125 mg tablet Take 1 tablet twice a day by oral route. 2020 active Not Available Not Available Not Avai lable methocarbam ol 750 mg tablet TAKE 1 TABLET BY MOUTH 3 TIMES A DAY NEEDED 11/25 completed Not Available Not Available Not Available benzonatate 100 mg capsule TAKE 1 CAPSULE BY MOUTH THREE TIMES DAILY NEEDED FOR COUGH active Not Available Not Available No t Available cephalexin 500 mg capsule TAKE 1 CAPSULE BY MOUTH EVERY 6 HOURS 04/11 completed Not Available Not Available Not Available metformin 1,000 mg tablet TAKE 1 TABLET BY MOUTH TWICE DAILY active Not Available Not Available No t Available losartan 25 mg tablet Take 1 tablet every day by oral route. 04/11 completed Not Available Not Available Not Available methylpredn isolone 4 mg tablets in a dose pack TAKE BY MOUTH DIRECTED ON INSIDE OF PACKAGE active Not Available Not Available No t Available ondansetron 4 mg disintegrat ing tablet DISSOLVE 1 TABLET IN MOUTH EVERY 8 HOURS NEEDED FOR NAUSEA 03/26 completed Not Available Not Available Not Available oxycodone 5 mg tablet TAKE 1 TABLET BY MOUTH EVERY 4 HOURS NEEDED FOR PAIN 05/11 completed Not Available Not Available Not Available sertraline 2020 active Not Available Not Available Not Avai lable aspirin 81 mg 03/24 completed Not Available Not Available Not Available Tylenol 2020 active Not Available Not Available Not Avai lable Eliquis 2.5 mg tablet TAKE 1 TABLET BY MOUTH EVERY 12 HOURS 05/11 completed Not Available Not Available Not Available semaglutide 2020 active Not Available Not Available Not Avai lable Paxlovid 300 mg (150 mg x 2)-100 mg tablets in a dose pack TAKE 3 TABLETS TOGETHER (TWO 150 MG NIRMATREL VIR TABLETS AND ONE 100 MG RITONAVIR TABLET) BY MOUTH TWICE DAILY FOR 5 DAYS. active Not Available Not Available No t Available Vitals Date Recorded Body mass index (BMI) Body height Body weight Provider Name and Address Organization Details Last Updated DateTime 04/06/2022 29.4 kg/m2 157.48 cm 66231.37 g Not Available [facility] 11/01/2022 22:42:43 Date Recorded Body height Body mass index (BMI) Body weight Provider Name and Address Organization Details Last Updated DateTime 01/19/2023 160.02 cm 29.2 kg/m2 38482.02 g Yasemin Orta [facility] 01/19/2023 11:25:41 Date Recorded Body height Provider Name an d Address Organization Details Last Updated DateTime 03/26/2023 160.02 cm Yasemin Orta [facility] 03/26/2023 15:36:26 Date Recorded Body height Body mass index (BMI) Body weight Provider Name and Address Organization Details Last Updated DateTime 04/11/2023 160.02 cm 28.5 kg/m2 95350.37 g Yasemin You [facility] 04/11/2023 10:52:14 Date Recorded Body height Provider Name an d Address Organization Details Last Updated DateTime 05/11/2023 160.02 cm Yasemin You [facility] 05/11/2023 09:37:05 Social History Question Answer Notes LastModified by Organizat ion Details LastModified Time Tobacco Smoking Status Never Smoker Not Available [facility] 11/01/2022 22:41:48 What Was The Date Of Your Most Recent Tobacco Screening? 11/25/2020 [id number] Information not available 11/01/2022 Sex: Unknown Functional Status None recorded. Mental Status None recorded. Family History Relationship Description Onset Age of this Age Resolved Age Notes LastModified by Organization Details LastModified Time Father Heart disease [id number] Not available 11/01/2022 22:41:54 Mother Family history of stroke [id number] Not available 11/01/2022 22:41:54 Mother Diabetes mellitus [id number] Not available 11/01/2022 22:41:54 Medical History Condition Response ARTHRITIS Y DIABETES, TYPE Y Gynecological HistoryNo gynecological history recorded. Obstetrics History GPAL:G 0 P 0 0 0 0 Past Encounters Encounter ID Performer Location Encounter Start Date Encounter Closed Date Diagnosis/Indication Diagnosis SNOMED-CT Code Diagnosis ICD10 Code Diagnosis Note [id number] [facility] [address] [address] 11/25/2020 00:00:00 11/28/2020 13:22:41 [id number] [facility] [address] [address] 03/24/2021 00:00:00 03/24/2021 10:27:12 [id number] [facility] [address] [address] 04/14/2021 00:00:00 04/14/2021 10:41:16 [id number] [facility] [address] [address] 04/28/2021 00:00:00 04/28/2021 10:55:57 [id number] [facility] [address] [address] 06/09/2021 00:00:00 06/09/2021 09:45:02 [id number] [facility] [address] [address] 04/06/2022 00:00:00 04/06/2022 10:07:31 [id number] Kofi Anna MD [facility] [place] [address] [place] [address] 01/19/2023 10:35:26 01/22/2023 09:35:58 Pain in right hip joint [id number] 13456 M25.551 [id number] Kofi Anna MD [facility] [place] [address] [place] [address] 03/26/2023 15:32:24 03/26/2023 16:32:08 Pain in right hip joint [id number] 77795 M25.551 [id number] MALICK Andres [facility] [place] [address] [place] [address] 04/11/2023 10:20:32 04/11/2023 12:32:28 History of total replacement of right hip joint [id number] 58202 Z96.151 [id number] MALICK Andres [facility] [place] [address] [place] [address] 05/11/2023 09:34:53 05/11/2023 10:10:44 History of total replacement of right hip joint [id number] 43302 Z96.641 Health Concerns Section Related Observation LastModified by Organization Detai ls LastModified Time None Recorded Concern Status LastModified by Organization Details LastModified Time None Recorded Advance Directives Directive None Recorded Payers Encounter Date Sequence Insurance Name Policy Number Policy Tilley Covered Member ID Tilley Member ID Guarantor Name 01/19/2023 1 [place] [facility] [id number] [facility] 01/19/2023 2 () [facility] [id number] [facility] 03/26/2023 1 [place] [facility] [id number] [facility] 03/26/2023 2 () [facility] [id number] [facility] 04/11/2023 1 [place] [facility] [id number] [facility] 04/11/2023 2 () [facility] [id number] [facility] 05/11/2023 1 [place] [facility] [id number] [facility] 05/11/2023 2 () [facility] [id number] [facility] Notes Date Note Type Note Provider Name and Address Organization Details Recorded Time 01/19/2023 text/html patient is a 72-year-old female who returns for follow-up of her right hip. She was last seen in the office for her 1 year follow-up after left total hip arthroplasty back in April of 2022. She is doing well with respect to her left hip. She notes occasional tenderness over the lateral aspect of the left hip but is very happy with the function comfort her left hip. Her right hip which is noted to have moderately severe type 2 osteoarthritis on x-rays from April of 2022 has worsened. She has been postponing scheduling right total hip replacement as long as she can but she has reached a point where she is very limited in her activities and if she does routine housework or works outside the next days she has difficulty walking because the pain is so severe. She has been taking Aleve and Tylenol on a regular basis. She does have a long history of central pain across the lower back. She does note that her right knee hurts as well. She recalls her left knee was her chief complaint with her left hip before hip replacement and the left knee pain went away. On the right side she has pain in the right knee but also worse pain in the anterior groin and anterolateral hip area. Kofi Anna MD [address] [place] [address], [place] [address], [place], [address], [email or web address] 01/21/2023 10:10:34 OBGyn Episode No OBEpisode recorded.
--- OUTSIDE RECORDS SUMMARY | 2024-11-19 09:36 | XMS_ITS | CONTINUITY OF CARE DOCUMENT ---
Author Name kimberlydonya, kimberlydonya Address Unknown Organization [facility] Address [address] [address] [place] [address] Phone [phone] Care Team Providers Care Turf Farmer Name Role Phone Yony THOMPSON, Jordon Unavailable [phone] DAGOBERTO [employer] INTEGRATION SPECIALIST-BC, LAURA Unavailable [phone] DAGOBERTO [employer] INTEGRATION SPECIALIST-BC, LAURA Unavailable PROBLEMS Condition Status Date Provider Notes Chest pain-type to be determined active Noemi Clark MD Family History of CVA or Stroke: active ? Kiara Sandra Family History of Sudden Cardiac : active ? Arsenio Sandra Family History of CVA or Stroke: active ? Kiara Sandra Family History of Sudden Cardiac : active ? 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 ENCOUNTERS Date Type Provider Location Encounter Diag nosis - In-person encounter Office Visit Jordon Clark MD [place] [facility] - In-person encounter Office Visit Jordon Clark MD [place] [facility] Exposure to COVID-19 coronavirus;had vaccine - In-person encounter Office Visit Jordon Clark MD [place] [facility] - In-person encounter Office Visit Jordon Clark MD [place] [facility] Carotid artery stenosis b/l <50%HyperlipidemiaDiabetes mellitusAnemiaDiastolic CHFHx of tobacco abuse quit ~2009 - In-person encounter Office Visit Jordon Clark MD [place] [facility] ArthritisSnoring - In-person encounter Office Visit Jordon Clark MD [place] [facility] Family History of CVA or Stroke:Family History of Sudden Cardiac :Family History of CVA or Stroke:Family History of Sudden Cardiac :Palpitations VITAL SIGNS Date Observation Value Provider Body Mass Index (Ratio) 27.95 kg/m2 Cash Clark MD blood pressure, cuff size regular Ke rri Kathryn blood pressure, diastolic 66 mm[Hg] Ke rri Kathryn blood pressure, systolic 126 mm[Hg] Aure Paige oxygen saturation, oximetry 96 % Rosaura Paige respiratory rate E&M 12 /min Rosaura mayo pulse rate 96 /min Rosaura Kelly [facility] weight E&M 168 [lb_av] Rosaura Kelly [facility] height E&M 65 [in_i] Rosaura Kelly [facility] Body Mass Index (Ratio) 27.62 kg/m2 Trae Daugherty blood pressure, cuff size regular Ke rri Gruenenfelder blood pressure, diastolic 72 mm[Hg] Ke rri Gruenenfelder blood pressure, systolic 132 mm[Hg] Ker ri Gruenenfelder oxygen saturation, oximetry 98 % Rosaura Gruenenfelder respiratory rate E&M 14 /min Rosaura G ruenenfelder pulse rate 85 /min Rosaura Gruenenfe er weight E&M 166 [lb_av] Rosaura Gruenenfe lder height E&M 65 [in_i] Rosaura Gruenenfe er Body Mass Index (Ratio) 27.79 kg/m2 Cahs Clark MD blood pressure, diastolic 70 mm[Hg] Li nkLogic blood pressure, systolic 130 mm[Hg] Vijaya kLogic blood pressure, cuff size large Ke rri Gruenenfelder blood pressure, diastolic 70 mm[Hg] Ke rri Gruenenfelder blood pressure, systolic 130 mm[Hg] Ker ri Gruenenfelder oxygen saturation, oximetry 97 % Rosaura Gruenenfelder respiratory rate E&M 14 /min Rosaura G ruenenfelder pulse rate 92 /min Rosaura Gruenenfe er weight E&M 167 [lb_av] Rosaura Gruenenfe lder height E&M 65 [in_i] Rosaura Gruenenfe er Body Mass Index (Ratio) 29.45 kg/m2 Ta[place] on Moy blood pressure, cuff size large Ke rri Gruenenfelder blood pressure, diastolic 60 mm[Hg] Ke rri Gruenenfelder blood pressure, systolic 122 mm[Hg] Ker ri Gruenenfelder oxygen saturation, oximetry 98 % Rosaura Gruenenfelder respiratory rate E&M 16 /min Rosaura G rynfelder pulse rate 91 /min Rosaura Kelly lder weight E&M 177 [lb_av] Rosaura Kelly lder height E&M 65 [in_i] Rosaura Horvathelvertirsoe lder Body Mass Index (Ratio) 30.45 kg/m2 Luciana magali Woodson pulse rate 87 /min Ara Dhillon l oxygen saturation, oximetry 100 % Ara Paz respiratory rate E&M 16 /min Ara Paz blood pressure, cuff size regular Cy zhou Paz blood pressure, diastolic 70 mm[Hg] Cy zhou Paz blood pressure, systolic 138 mm[Hg] Lauryn abel Paz weight E&M 183 [lb_av] Ara Dhillon l height E&M 65 [in_i] Ara Dhillon l Body Mass Index (Ratio) 29.95 kg/m2 Terell molina Boaz blood pressure, cuff size large Ke rri Alexandruelverneangieelder blood pressure, diastolic 80 mm[Hg] Ke rri Gruenenfelder blood pressure, systolic 132 mm[Hg] Aure merrill Kathryner oxygen saturation, oximetry 97 % Rosaura Grecia respiratory rate E&M 18 /min Rosaura G jeanetteelder pulse rate 88 /min Rosaura Alexandruelvermarynneka lder weight E&M 180 [lb_av] Rosaura Robin lder height E&M 65 [in_i] Rosaura Mcdonaldnenfe lder ALLERGIES No Known Drug Allergies HISTORY OF MEDICATION USE Medication Status Instructions Dates Provider Indications Com ments Ozempic 1 mg/dose (4 mg/3 mL) pen injector active Inject 1 mg subcutaneously once a week Clementine Alex Coreg 3.125 mg tablet active Take 1 tablet by mouth twice a day Rosaura Paige Diastolic CHF ferrous sulfate 325 mg (65 mg iron) tablet active daily Suzette Christianson NP FreeStyle Lancets 28 gauge 28 gauge active Use 1 lancet as directed three times a day Amanda Maguire RN FreeStyle System Kit kit active Use 1 unit as directed three times a day Amanda Maguire RN Ozempic 0.25 mg or 0.5 mg(2 mg/1.5 mL) pen injector completed Inject 0.5 mg subcutaneously once a week - Clementine Johnson Diabetes mellitus aspirin 81 mg tablet,delayed release (DR/EC) active 1 tablet by mouth once a day Rosaura Paige carvedilol 3.125 mg tablet completed Take 1 tablet by mouth twice a day - Ligia Schultz VITAMIN D TABLET completed once a day - Rosaura Paige [facility] OIL [facility]SULE completed once a day - Rosaura Paige losartan 25 mg tablet active Take 1 tablet once a day Rosaura Paige sertraline 50 mg tablet active tablet by mouth once a day Roasura Paige atorvastatin 40 mg tablet active Take 1 tablet by mouth every night Clementine Johnson metformin 1,000 mg tablet,ER quin.retention 24 hr active 1 tablet twice a day Suzette Christianson NP SOCIAL HISTORY Date Observation Value Provider smoking, year quit 2011 Drew Be atty smoking, date started Drew Keys smoking history, tot al pack/day 1 ppd Drew Keys cigarette use yes Drew Keys smoking status Former smoker Drew mays smoking, year quit 2011 Rosaura lion smoking, date started 30 Rosaura Paige smoking history, tot al pack/day 1 ppd Rosaura Peraltaer cigarette use yes Rosaura Jordan elder smoking status Former smoker Rosaura adamselder social history E&M S moking History: Mirtha dai is a former smoker. Kishankaleb Moy social history reviewed E&M revi ewed - no changes required Andreas Moy smoking, year quit 2011 Rosaura storyer smoking, date started 30 Rosaura Peraltaer smoking history, tot al pack/day 1 ppd Rosaura Peraltaer cigarette use yes Rosaura Jordan elder smoking status Former smoker Rosaura adamselder social history E&M S moking History: Mirtha dai is a former smoker. Uliamy Moy social history reviewed E&M revi ewed - no changes required Andreas Moy smoking, year quit 2011 Rosaura howellfelder smoking, date started 30 Rosaura Peraltaer smoking history, tot al pack/day 1 ppd Rosaura Peraltaer cigarette use yes Rosaura cyr smoking status Former smoker Rosaura adamselder social history reviewed E&M revi ewed - no changes required Marky Woodson smoking, year quit 2011 Ara lemos smoking, date started 30 Blanco Paz smoking history, tot al pack/day 1 ppd Ara Paz cigarette use yes Ara casey smoking status Former smoker Ara Marcos fisher social history reviewed E&M revi ewed - no changes required Arsenio Sandra social history E&M S moking History: Mirtha dai is a former smoker. Arsenio Sandra number of grandchildren Jordon Sandra smoking, date started 30 oRsaura Paige smoking history, tot al pack/day 1 ppd Rosaura Paige smoking, year quit 2011 Rosaura de los santosmagalioscar cigarette use yes Rosaura Jordan elder smoking status Former smoker Rosaura adamselder FAMILY HISTORY Family Member Condition Mother Family History of Joyce dden Cardiac : Mother Family History of Di abetes: Mother Family History of CV A or Stroke: Father Family History of Joyce dden Cardiac : Father Family History of CV A or Stroke: INSURANCE PROVIDERS Payer name Policy type / Coverage type [place] [employer] [id number] [place] [employer] Medicare [id number] ADVANCE DIRECTIVES Name Date DISCUSSED - NO DECISION MADE TREATMENT PLAN Date Name Performer [id number],C,n o recurrence Her updated medication list for this problem includes: Aspirin 81 Mg Tablet,delayed Release (dr/ec) (Aspirin) ..... 1 tablet by mouth once a day Suzette Christianson NP [id number],C, <50% will recheck carotids next visit Suzette Christianson NP [id number],C, H er updated medication list for this problem includes: Atorvastatin 40 Mg Tablet (Atorvastatin) ..... Take 1 tablet by mouth every night Suzette Christianson NP [id number],C,d ue to have labs with PCP on iron supplement Suzette Christianson NP [id number],C,S table R epeat echo Echo 11/2020 CONCLUSIONS: 1 . Normal left ventricular systolic function. Normal left ventricular size. Normal left ventricular wall thickness. There is E to A w ave reversal consistent with impaired LV relaxation. E/E': 6.0. Left ventricular ejection fraction is measured at 55 %. 2 . The mitral valve is normal in appearance and function. There is trace physiologic mitral valve regurgitation. 3 . The tricuspid valve is normal in appearance and function. There is mild tricuspid regurgitation. IVC is normal in size with n ormal respiratory response. The RA pressure is estimated at 3.0 mmHg. Estimated peak pulmonary artery systolic pressure i s 18.0 mmHg. 4 . Normal pericardium with no pericardial or pleural effusion. 5 . Normal aortic root size. Suzette Christianson NP [id number],C,09/2022 mild c ase (took paxlovid) Suzette Meghan ELI [id number],C,avoid NSAID S carmen Clark MD [id number],C, Jordon john MD [id number],C, H er updated medication list for this problem includes: Atorvastatin 40 Mg Tablet (Atorvastatin) ..... Take 1 tablet by mouth every night Andreas Winter [id number],Dickson, F benitez with PCP Her updated medication list for this problem includes: Aspirin 81 Mg Tablet,delayed Release (dr/ec) (Aspirin) ..... 1 tablet by mouth once a day Ozempic 0.25 Mg Or 0.5 Mg(2 Mg/1.5 Ml) Pen Injector (Semaglutide) ..... Inject 0.25mg subcutaneously once weekly x4 weeks, then increase to 0.5mg subcutaneously weekly Losartan 25 Mg Tablet (Losartan) ..... Take 1 tablet once a day Metformin 1,000 Mg Tablet,er Quin.retention 24 Hr (Metformin) ..... 2 pills a day Andreas Winter [id number],C, Andreas Winter [id number],B,S table R epeat echo at next visit Echo 11/2020 CONCLUSIONS: 1 . Normal left ventricular systolic function. Normal left ventricular size. Normal left ventricular wall thickness. There is E to A w ave reversal consistent with impaired LV relaxation. E/E': 6.0. Left ventricular ejection fraction is measured at 55 %. 2 . The mitral valve is normal in appearance and function. There is trace physiologic mitral valve regurgitation. 3 . The tricuspid valve is normal in appearance and function. There is mild tricuspid regurgitation. IVC is normal in size with normal respiratory response. The RA pressure is estimated at 3.0 mmHg. Estimated peak pulmonary artery systolic pressure i s 18.0 mmHg. 4 . Normal pericardium with no pericardial or pleural effusion. 5 . Normal aortic root size. Andreas Winter Electrophysiology Jordon hook MD Electrophysiology:ca rotid duplex shows <50% stenosis bulaterally with mild plaque demonstrated throughout Drew Keys Electrophysiology: n o recurrence Her updated medication list for this problem includes: Aspirin 81 Mg Tablet,delayed Release (dr/ec) (Aspirin) ..... 1 tablet by mouth once a day Her updated medication list for this problem includes: Coreg 3.125 Mg Tablet (Carvedilol) ..... Take 1 tablet by mouth twice a day Aspirin 81 Mg Tablet,delayed Release (dr/ec) (Aspirin) ..... 1 tablet by mouth once a day Drew [place] Electrophysiology:ex tensive discussion about the compliance with the medications was done by Dr. Clark in person. Her updated medication list for this problem includes: Atorvastatin 40 Mg Tablet (Atorvastatin) ..... Take 1 tablet by mouth every night Drew Keys Electrophysiology:pe r PCP O n ozempic H er updated medication list for this problem includes: Ozempic 1 Mg/dose (4 Mg/3 Ml) Pen Injector (Semaglutide) ..... Inject 1 mg subcutaneously once a week Metformin 1,000 Mg Tablet,er Quin.retention 24 Hr (Metformin) ..... 1 tablet twice a day Aspirin 81 Mg Tablet,delayed Release (dr/ec) (Aspirin) ..... 1 tablet by mouth once a day Losartan 25 Mg Tablet (Losartan) ..... Take 1 tablet once a day Drew Keys Electrophysiology:Ap pears clinically compensated S he has responded well to treatments H er updated medication list for this problem includes: Coreg 3.125 Mg Tablet (Carvedilol) ..... Take 1 tablet by mouth twice a day Aspirin 81 Mg Tablet,delayed Release (dr/ec) (Aspirin) ..... 1 tablet by mouth once a day Losartan 25 Mg Tablet (Losartan) ..... Take 1 tablet once a day Drew Keys Electrophysiology:no recurrence Her updated medication list for this problem includes: Aspirin 81 Mg Tablet,delayed Release (dr/ec) (Aspirin) ..... 1 tablet by mouth once a day Suzette Christianson NP Electrophysiology:2021 <50% will recheck carotids next visit Suzette Meghan ELI Electrophysiology: H er updated medication list for this problem includes: Atorvastatin 40 Mg Tablet (Atorvastatin) ..... Take 1 tablet by mouth every night Suzette Christianson NP Electrophysiology:nolvia weiss to have labs with PCP on iron supplement Suzette Christianson NP Electrophysiology:St able R epeat echo Echo 11/2020 CONCLUSIONS: 1 . Normal left ventricular systolic function. Normal left ventricular size. Normal left ventricular wall thickness. There is E to A w ave reversal consistent with impaired LV relaxation. E/E': 6.0. Left ventricular ejection fraction is measured at 55 %. 2 . The mitral valve is normal in appearance and function. There is trace physiologic mitral valve regurgitation. 3 . The tricuspid valve is normal in appearance and function. There is mild tricuspid regurgitation. IVC is normal in size with n ormal respiratory response. The RA pressure is estimated at 3.0 mmHg. Estimated peak pulmonary artery systolic pressure i s 18.0 mmHg. 4 . Normal pericardium with no pericardial or pleural effusion. 5 . Normal aortic root size. Suzette Christianson NP Electrophysiology:09/2022 mild ca se (took paxlovid) Suzette Christianson NP Electrophysiology:avoid NSAID Sa spencer Clark MD Electrophysiology Jordon hook MD Electrophysiology: H er updated medication list for this problem includes: Atorvastatin 40 Mg Tablet (Atorvastatin) ..... Take 1 tablet by mouth every night Andreas Winter Electrophysiology: F benitez with PCP Her updated medication list for this problem includes: Aspirin 81 Mg Tablet,delayed Release (dr/ec) (Aspirin) ..... 1 tablet by mouth once a day Ozempic 0.25 Mg Or 0.5 Mg(2 Mg/1.5 Ml) Pen Injector (Semaglutide) ..... Inject 0.25mg subcutaneously once weekly x4 weeks, then increase to 0.5mg subcutaneously weekly Losartan 25 Mg Tablet (Losartan) ..... Take 1 tablet once a day Metformin 1,000 Mg Tablet,er Quin.retention 24 Hr (Metformin) ..... 2 pills a day Andreas Winter Electrophysiology Jordon hook MD Electrophysiology:St able R epeat echo at next visit Echo 11/2020 CONCLUSIONS: 1 . Normal left ventricular systolic function. Normal left ventricular size. Normal left ventricular wall thickness. There is E to A w ave reversal consistent with impaired LV relaxation. E/E': 6.0. Left ventricular ejection fraction is measured at 55 %. 2 . The mitral valve is normal in appearance and function. There is trace physiologic mitral valve regurgitation. 3 . The tricuspid valve is normal in appearance and function. There is mild tricuspid regurgitation. IVC is normal in size with normal respiratory response. The RA pressure is estimated at 3.0 mmHg. Estimated peak pulmonary artery systolic pressure i s 18.0 mmHg. 4 . Normal pericardium with no pericardial or pleural effusion. 5 . Normal aortic root size. Andreas Winter Electrophysiolog Fol low up 15: H er updated medication list for this problem includes: Aspirin Adult Low Dose 81 Mg Oral Tablet Delayed Release (Aspirin) ..... One tab by mouth daily Carvedilol 3.125 Mg Oral Tablet (Carvedilol) ..... One tab twice daily Losartan Potassium 25 Mg Oral Tablet (Losartan potassium) ..... Take one tablet daily Andreas Winter Electrophysiolog Fol low up 15: p t was told she was anemic, review of labs is borderline H&H, patient OK to take oral iron supplements Andreas Winter Electrophysiolog Fol low up 15: o n 11/03/2020 glucose 115, A1c was 7.4. S TART ozempmann Her updated medication list for this problem includes: Ozempic (0.25 or 0.5 Mg/dose) 2 Mg/1.5ml Subcutaneous Solution Pen-injector (Semaglutide) ..... Inject 0.25mg subcutaneously once weekly x4 weeks, then increase to 0.5mg subcutaneously weekly reduces risk of major cv events Aspirin Adult Low Dose 81 Mg Oral Tablet Delayed Release (Aspirin) ..... One tab by mouth daily Losartan Potassium 25 Mg Oral Tablet (Losartan potassium) ..... Take one tablet daily Metformin Hcl Er (mod) 1000 Mg Oral Tablet Extended Release 24 Hour (Metformin hcl) ..... 2 pills a day Andreas Winter Electrophysiolog Fol low up 15: w ell controlled, gets labs drawn regularly, last on 11/03/2020, LDL was 60, trigs 180 H er updated medication list for this problem includes: Lovastatin 40 Mg Oral Tablet (Lovastatin) ..... One tab. daily Andreas Winter Electrophysiolog Fol low up 15: O rders: C arotid Duplex Bilateral (CPT-22698) CONCLUSIONS: 1 . Mild plaque with less than 50% stenosis of the internal carotid arteries bilaterally. 2. Vertebral flow is antegrade bilaterally. E lectronically Signed By: Jordon Sy 2 020-11-13 11:19:41 CDT Andreas Winter Electrophysiolog Fol low up 15:no recurrence over last couple years E cho today shows good LVEF, mild TR normal for age, report pending. Her updated medication list for this problem includes: Aspirin Adult Low Dose 81 Mg Oral Tablet Delayed Release (Aspirin) ..... One tab by mouth daily Carvedilol 3.125 Mg Oral Tablet (Carvedilol) ..... One tab twice daily Andreas Winter Electrophysiology fo llow up :no recent episodes A AA showed CONCLUSIONS: 1 . No evidence of an aneurysm of the abdominal aorta. Plaque is demonstrated throughout. 2 . Unable to image the Illiac Arteries due to bowel gas shadowing Carotids showed CONCLUSIONS: 1 . Mild plaque with less than 50% stenosis of the internal carotid arteries bilaterally. 2 . Vertebral flow is antegrade bilaterally. Her updated medication list for this problem includes: Aspirin Adult Low Dose 81 Mg Oral Tablet Delayed Release (Aspirin) ..... One tab by mouth daily Carvedilol 3.125 Mg Oral Tablet (Carvedilol) ..... One tab twice daily Orders: 9 9215 HIGH Complex (CPT-77642) C BC (INCLUDES DIFF/PLT) (6399) C OMPREHENSIVE METABOLIC PANEL, W/EGFR (39899) LIPID PANEL (7600) T HYROID PANEL WITH TSH, 3RD GENERATION (7444) H EMOGLOBIN A1c (496) M obile Cardiac Tele (CPT-12183) [facility] (CPT-06850) C omplete Echo (CPT-45779) C arotid Duplex Bilateral (CPT-67394) A leif Duplex Ultrasound (CPT-71760) [facility] Electrophysiology fo llow up : O rders: [facility] (CPT-59417) [facility] Electrophysiology fo llow up : O rders: C BC (INCLUDES DIFF/PLT) (6399) C OMPREHENSIVE METABOLIC PANEL, W/EGFR (74070) L IPID PANEL (7600) T HYROID PANEL WITH TSH, 3RD GENERATION (7444) HEMOGLOBIN A1c (496) M obile Cardiac Tele (CPT-50589) [facility] (CPT-79574) C omplete Echo (CPT-44467) C arotid Duplex Bilateral (CPT-73456) A leif Duplex Ultrasound (CPT-58222) [facility] Electrophysiology fo llow up :no recent episodes H er updated medication list for this problem includes: Aspirin Adult Low Dose 81 Mg Oral Tablet Delayed Release (Aspirin) ..... One tab by mouth daily Carvedilol 3.125 Mg Oral Tablet (Carvedilol) ..... One tab twice daily Orders: E KG (CPT-98523) 9 9215 HIGH Complex (CPT-36400) C BC (INCLUDES DIFF/PLT) (6399) C OMPREHENSIVE METABOLIC PANEL, W/EGFR (25657) L IPID PANEL (7600) T HYROID PANEL WITH TSH, 3RD GENERATION (7444) H EMOGLOBIN A1c (496) M obile Cardiac Tele (CPT-33654) [facility] (CPT-53792) C omplete Echo (CPT-91643) C arotid Duplex Bilateral (CPT-18964) A leif Duplex Ultrasound (CPT-39569) Marky Woodson Electrophysiology fo llow up :no recent episodes H er updated medication list for this problem includes: Aspirin Adult Low Dose 81 Mg Oral Tablet Delayed Release (Aspirin) ..... One tab by mouth daily Carvedilol 3.125 Mg Oral Tablet (Carvedilol) ..... One tab twice daily Orders: 9 9215 HIGH Complex (CPT-25581) C BC (INCLUDES DIFF/PLT) (6399) C OMPREHENSIVE METABOLIC PANEL, W/EGFR (84279) L IPID PANEL (4960) T HYROID PANEL WITH TSH, 3RD GENERATION (7444) H EMOGLOBIN A1c (496) M obile Cardiac Tele (CPT-37119) [facility] (CPT-31333) C omplete Echo (CPT-12684) C arotid Duplex Bilateral (CPT-20389) A leif Duplex Ultrasound (CPT-87198) Marky Woodson Electrophysiology Ho spital Follow up : D osvaldo GALARZA today. S tress echo 11/01/18 was negative for ischemia. C T Chest 10/14/18 negative for PE. Start Coreg 3.125mg one tab BID. M ay double dose of Coreg by PCP if necessary. Her updated medication list for this problem includes: Aspirin Adult Low Dose 81 Mg Oral Tablet Delayed Release (Aspirin) ..... One tab by mouth daily Carvedilol 3.125 Mg Oral Tablet (Carvedilol) ..... One tab twice daily Arsenio Sandra Electrophysiology Ho spital Follow up : Edward riley CP today. S tress echo 11/01/18 was negative for ischemia. C T Chest 10/10/18 negative for PE. Start Coreg 3.125mg one tab BID. M ay double dose of Coreg by PCP if necessary. Her updated medication list for this problem includes: Aspirin Adult Low Dose 81 Mg Oral Tablet Delayed Release (Aspirin) ..... One tab by mouth daily Carvedilol 3.125 Mg Oral Tablet (Carvedilol) ..... One tab twice daily Arsenio Sandra Electrophysiology Ho spital Follow up : Dickson tavarez 1-week Telesentry in 1 month. Orders: Michael obile Cardiac Tele (CPT-09118) Her updated medication list for this problem includes: Aspirin Adult Low Dose 81 Mg Oral Tablet Delayed Release (Aspirin) ..... One tab by mouth daily Carvedilol 3.125 Mg Oral Tablet (Carvedilol) ..... One tab twice daily Arsenio Sandra Electrophysiology Ho spital Follow up : Edward riley CP today. S tress echo 11/01/18 was negative for ischemia. C T Chest 10/10/18 negative for PE. Start Coreg 3.125mg one tab once daily. M ay double dose of Coreg by PCP if necessary. Her updated medication list for this problem includes: Aspirin Adult Low Dose 81 Mg Oral Tablet Delayed Release (Aspirin) ..... One tab by mouth daily Carvedilol 3.125 Mg Oral Tablet (Carvedilol) ..... One tab twice daily Arsenio Sandra Date Name Complete Echo LIPID PANEL TSH, free T4, total T3 COMPREHENSIVE METABO LIC PANEL, W/EGFR Carotid Duplex Bilat eral Aorta Duplex Ultraso und Complete Echo Aorta Duplex Ultraso und Complete Echo Carotid Duplex Bilat eral Monitor - Telemetry (Mobile Cardiac) Carotid Duplex Bilat eral Monitor - Telemetry (Mobile Cardiac) Aorta Duplex Ultraso und Carotid Duplex Bilat eral Complete Echo Sleep Study Home Mobile Cardiac Tele HEMOGLOBIN A1c THYROID PANEL WITH T SH, 3RD GENERATION LIPID PANEL COMPREHENSIVE METABO LIC PANEL, W/EGFR CBC (INCLUDES DIFF/P LT) Mobile Cardiac Tele Stress Echo Sebastián THOMPSON Time: 11-2 0min/7days HISTORY OF PROCEDURES Procedure Date Procedure Name Provider Procedure Notes S tatus EKG Jordon Clark MD comp leted Schedule Followup Jordon Clark MD 1 year D sharan Clark completed EKG Jordon Clark MD comp leted EKG Jordon Clark MD comp leted Mobile Cardiac Telemetry - Tech Jordon Clark MD completed Mobile Cardiac Telemetry - Prof Jordon Clark MD completed Schedule Followup Jordon Clark MD 1 year f /u completed EKG Jordon Clark MD comp leted EKG Jordon Clark MD comp leted Mobile Cardiac Telemetry - Tech Jordon Clark MD completed Mobile Cardiac Telemetry - Prof Jordon Clark MD completed Schedule Followup Jordon Clark MD in 1 yr completed Schedule Followup Jordon Clark MD ne eds fu with Dr. clark. do stress ECHO the day of visit completed
--- OUTSIDE RECORDS SUMMARY | 2024-11-19 09:37 | XMS_ITS | Encounter Summary ---
Author Organization [facility] Address 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
--- OUTSIDE RECORDS SUMMARY | 2024-11-19 09:37 | XMS_ITS | Clinical Summary ---
Author Organization [facility] Address [address] [place] [address] Care Team Providers Care Civil Engineering Professional Name Role Phone Unavailable Primary Care Provider Unavailabl e Source Comments [facility],non-owned Affiliates and Associated Physician Practices is amultiple site organization consisting of ambulatory clinics and hospital sitesin [place], [place], [place] and [place]. This disclosure is being madepursuant to the Care Everywhere program and may not contain all information available regarding this patient. Last updated 18.[facility] Allergies No known active allergies Medications * Be aware that medications may not be up to date on this document. Alwaysverify current medications with the patient. Medication Sig Dispensed Refills Start Date End Date Status METFORMIN HCL ER, MOD, PO Active LOVASTATIN PO Active SERTRALINE HCL PO Active Meloxicam 7.5 MG TBDP Act nila Social History Tobacco Use Types Packs/Day Years Used Date Smoking Tobacco: Former Cigarettes Q uit: 2010 Smokeless Tobacco: Never Sex and Gender Information Value Date Recorded Sex Assigned at Not on file Gender Identity Not on file Sexual Orientation Not on file Last Filed Vital Signs Vital Sign Reading Time Taken Comments Blood Pressure 126/60 07/22/2019 5:30 PM MAIL DELIVERY SUPERVISOR Pulse 90 07/22/2019 5:30 PM MAIL DELIVERY SUPERVISOR Temperature 36.7 C (98.1 F) 07/22/2019 5:30 PM MAIL DELIVERY SUPERVISOR Respiratory Rate 16 07/22/2019 5:30 PM MAIL DELIVERY SUPERVISOR Oxygen Saturation 96% 07/22/2019 5:30 PM MAIL DELIVERY SUPERVISOR Inhaled Oxygen Concentration - - Weight 77.1 kg (170 lb) 07/22/2019 5:30 PM MAIL DELIVERY SUPERVISOR Height 162.6 cm (5' 4 ) 07/22/2019 5:30 PM MAIL DELIVERY SUPERVISOR Body Mass Index 29.18 07/22/2019 5:30 PM MAIL DELIVERY SUPERVISOR Plan of Treatment Health Maintenance Due Date Last Done Comments BONE DENSITY TESTING 1950 COLOGUARD (AGES 45-75) - COLON CA SCREENING 1950 COLON MONITORING 1950 COLONOSCOPY - COLON CA SCREENING 1950 CT COLONOGRAPHY - COLON CA SCREENING 1950 Colorectal Cancer Screening 1950 FIT - COLON CA SCREENING 1950 FLEX SIG - COLON CA SCREENING 1950 MAMMOGRAM 1950 MEDICARE AWV 12 MONTHS 1950 HEPATITIS C SCREENING 06/06/1968 DTAP/TDAP/TD VACCINES (1 - Tdap) 1969 PNEUMOCOCCAL VACCINE 50+ (1 of 1 - PCV) 2000 ZOSTER VACCINE (1 of 2) 2000 SCREENING FOR DIABETES 07/22/2019 COVID-19 VACCINE (1 - 2023- season) 2024 INFLUENZA VACCINE (#1) 2024 9, 05/13/2018, 05/14/2017, Additional history exists DEPRESSION SCREENING 09/03/2024 Respiratory Syncytial Virus (RSV) Vaccine Pt: or over 60 yrs (1 - 1-dose 75+ series) 2025 HEPATITIS B VACCINE Aged Out No longe r eligible based on patient's age to complete this topic HIB VACCINE Aged Out No longer eligi ble based on patient's age to complete this topic HPV VACCINE Aged Out No longer eligi ble based on patient's age to complete this topic MENINGOCOCCAL (Group B) VACCINE SHARED DECISION-MAKING Aged Out No longer eligible based on patient's age to complete this topic MENINGOCOCCAL GROUPS A/C/Y/W VACCINE Aged Out No longer eligible based on patient's age to complete this topic Advance Directives Documents on File Type Date Recorded Patient Chargeback Analyst Expl anation Adv Directive/Living Will/POA 01/11/2017
--- OUTSIDE RECORDS SUMMARY | 2024-11-19 09:37 | XMS_ITS | Encounter Summary ---
Author Organization [facility] Address 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
--- OUTSIDE RECORDS SUMMARY | 2024-11-19 09:37 | XMS_ITS | Clinical Summary ---
Author Organization [facility] Address [facility] [place] [address] Care Team Providers Care Diet Counselor Name Role Phone Gabriela Hopson KATJA Primary Care Provider Allergies No known active allergies Medications carvedilol (COREG) 3.125 MG tablet every 12 (twelve) hours. Active Sertraline HCl (ZOLOFT OR) sertraline Active diphenhydrAMINE-AP AP, sleep, (TYLENOL PM EXTRA STRENGTH OR) Tylenol Active SEMAGLUTIDE,0.25 OR 0.5MG/DOS, SC semaglutide A ctive aspirin EC (ECOTRIN) 81 MG tablet Take 81 mg by mouth daily. Active ferrous sulfate, 65 mg elemental, 325 (65 FE) MG tablet Take 325 mg by mouth daily with breakfast. Active Glucose Blood (ACCU-CHEK SHELTON PLUS) test strip 1 strip by Other route as needed. Use as instructed Active SOFTCLIX LANCETS Misc Active fluticasone propionate (FLONASE) 50 MCG/ACT nasal spray 1 spray by Nasal route daily. Active atorvastatin (LIPITOR) 20 MG tabletIndications: Mixed hyperlipidemia Take 1 tablet (20 mg total) by mouth daily. 30 tablet 09/28/19 Active metFORMIN (GLUCOPHAGE) 1000 MG tabletIndications: Type 2 diabetes mellitus without complication, without long-term current use of insulin (CMS/HCC HHS/HCC) Take 1 tablet (1,000 mg total) by mouth every 12 (twelve) hours. 60 tablet 09/28/19 Active losartan (COZAAR) 25 MG tabletIndications: Primary hypertension Take 1 tablet (25 mg total) by mouth daily. 30 tablet 09/28/19 23 Active ondansetron (ZOFRAN-ODT) 4 MG disintegrating tablet Take 1 tablet (4 mg total) by mouth every 8 (eight) hours as needed for Nausea. 20 tablet 12/08/19 23 Active dextromethorphan-g uaiFENesin ER (MUCINEX DM) 30-600 MG TABLET SR 12 HR 12 hr tablet Take 1 tablet by mouth every 12 (twelve) hours as needed. 28 tablet 02/09/20 24 Active methylPREDNISolone , JULIAN, (MEDROL DOSEPAK) 4 MG tablet Take 1 tablet (4 mg total) by mouth daily. 6 TABLETS ON DAY ONE, 5 TABLETS DAY TWO, 4 TABLETS DAY THREE, 3 TABLETS DAY FOUR, 2 TABLETS DAY FIVE, AND 1 TABLET DAY SIX 1 each 02/09/20 24 Active nirmatrelvir & ritonavir 300/100 (PAXLOVID) 20 x 150 MG & 10 x 100MG tablet pack Take 3 tablets by mouth 2 (two) times daily. Take TWO nirmatrelvir 150 mg tablet(s) along with ONE ritonavir 100 mg tablet, with all three tablets taken together, twice daily for 5 days. May take with or without food. Swallow tablets whole. Do not chew, break or crush.. 30 tablet 02/09/20 24 Active Active Problems No known active problems Immunizations Name Administration Dates Next Due Fluzone High Dose - >Age 65 (Prefilled Syringe) 06/01/2022 Pneumococcal (Prevnar 7) 09/03/2015 Family History Relation Status Comments Father Mother Social History Tobacco Use Types Packs/Day Years Used Date Smoking Tobacco: Former Cigarettes Q uit: 2010 Smokeless Tobacco: Never Tobacco Cessation:Counseling Given: Not Answered Alcohol Use Standard Drinks/Week Comments Not Currently 0 (1 standard drink = 0.6 oz pur e alcohol) PHQ-2 Answer Date Recorded PHQ-2 Score - If the patient scores above 3, please move on to questions 3-9 1 05/29/2022 Comments No Sex and Gender Information Value Date Recorded Sex Assigned at Not on file Legal Sex Female 2:35 PM CDT Gender Identity Not on file Sexual Orientation Not on file Last Filed Vital Signs Vital Sign Reading Time Taken Comments Blood Pressure 96/58 02/09/2024 4:43 PM CDT Pulse 98 02/09/2024 4:43 PM CDT Temperature 37 C (98.6 F) 02/09/2024 4:43 PM CDT Respiratory Rate 16 02/09/2024 4:43 PM CDT Oxygen Saturation 97% 02/09/2024 4:43 PM CDT Inhaled Oxygen Concentration - - Weight 72.6 kg (160 lb) 02/09/2024 4:43 PM CDT Height 160 cm (5' 3 ) 02/09/2024 4:43 PM CDT Body Mass Index 28.34 02/09/2024 4:43 PM CDT Plan of Treatment Health Maintenance Due Date Last Done Comments Zoster Vaccines (1 of 2) 2000 Annual Medicare Wellness Visit 2015 Mammogram Screening 06/03/2023 COVID-19 Vaccine ( season) 2024 07/20/2021, 11/18/2020, 10/28/2020 Influenza Adult (#1) 2024 06/01/2022, 05/04/2022, 06/17/2021, Additional history exists PHQ-2 (Physician [place]) 09/03/2024 DTaP, Tdap and Td Vaccines (2 - Td or Tdap) 02/20/2025 02/20/2015 RSV Immunization or 60+ Years (1 - 1-dose 75+ series) 2025 Colorectal Cancer Screening Colonoscopy (10 Years) 09/03/2027 Dexa Scan (General) Completed 12/11/2016 Pneumococcal Vaccine: 65+ Years Completed 05/14/2017, 11/18/2015, 09/03/2015 Hepatitis C Completed 05/29/2022 Meningococcal B Vaccine Aged Out No l onger eligible based on patient's age to complete this topic Meningococcal Vaccine Aged Out No naomi gurjit eligible based on patient's age to complete this topic RSV Immunizations Under 20 Months Aged Out No longer eligible based on patient's age to complete this topic Procedures Procedure Name Priority Date/Time Associated Diagnosis Comments HEPATITIS C ANTIBODY Routine 05/29/2022 1:54 PM CDT Annual physical exam from Last 3 Months or Most Recently Relevant to Health Maintenance Results * HEPATITIS C ANTIBODY (05/29/2022 1:54 PM CDT) HEPATITIS C AB NON-REACTI VE NON-REACT RIZWAN 05/30/2022 8:16 PM CDT [facility] Comment: ANTIBODIES TO HCV NOT DETECTED. DOES NOT EXCLUDE THE POSSIBILITY OF EXPOSURE TO HCV. 05/29/2022 1:54 PM CDT Obdulia Giordano MD LABORATORY Final Result [facility] [address] [place] [address], [id number] from Last 3 Months or Most Recently Relevant to Health Maintenance Insurance [place] [address] Care Teams Diet Counselor Relationship Specialty Start Date End Date Gabriela Hopson APNP [address] [phone] PCP - General Nurse Practitioner Family 02/09/24
--- OUTSIDE RECORDS SUMMARY | 2024-11-19 09:37 | XMS_ITS | Encounter Summary ---
Author Organization [facility] Address 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
--- OUTSIDE RECORDS SUMMARY | 2024-11-19 09:37 | XMS_ITS | Encounter Summary ---
Author Organization [facility] Address 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
--- OUTSIDE RECORDS SUMMARY | 2024-11-19 09:37 | XMS_ITS | Encounter Summary ---
Author Organization [facility] Address [address] [place] [address] Care Team Providers Care Management Services Technician Name Role Phone Obdulia Giordano MD Primary Care Provider [phone] Gabriela Hopson Primary Care Provider [phone] Encounter Details Date Type Department Care Team (Late st Contact Info) Description 09/28/2022 [employer] Message Enc [facility] Family Medicine [address] [address] [employer] Provider medication question Social History Tobacco Use Types Packs/Day Years Used Date Smoking Tobacco: Former Cigarettes Q uit: 2010 Smokeless Tobacco: Never Alcohol Use Standard Drinks/Week Comments Not Currently [...] on file Sexual Orientation Not on file COVID-19 Exposure Response Date Recorded In the last 10 days, have yo u been in contact with someone who was confirmed or suspected to have Coronavirus/COVID-19? Yes 09/03/2022 3:17 PM STEAM DRIER OPERATOR documented as of this encounter Plan of Treatment Not on file documented as of this encounter Visit Diagnoses Not on filedocumented in this encounter Additional Health Concerns Infection Onset Date Last Indicated Resolved Time COVID-19 Rule Out 12/07/2022 12/07/2022 12/07/2022 11:46 PM CDT Assessment Noted Time PHQ-9 Depression Total Score: 4 05/29/20 22 1:23 PM CDT documented as of this encounter Care Teams Management Services Technician Relationship Specialty Start Date End Date Obdulia Giordano MD [address] [place] [address] PCP - General FAMILY PRACTICE 05/15/22 02/08/24 Gabriela Hopson APNP [address] [id number] PCP - General Nurse Practitioner Family 02/09/24 documented as of this encounter
--- OUTSIDE RECORDS SUMMARY | 2024-11-19 09:37 | XMS_ITS | Patient Health Record ---
Author Organization [facility] Address [address] [place], [place] [address] Care Team Providers Care Xerox Machine Assembler Name Role Phone JUVENAL MORAES MD Primary Care Provider Maren Renetiffanie Derek Unavailable [phone] REASON FOR REFERRAL No Information MEDICATIONS Medication SIG (Take, Route, Fr equency, Duration) Notes Start Date End Date Status losartan 25 mg 1 tab(s) orally once a day for 30 day(s) Active metFORMIN 500 mg 1 tab(s) orally 2 ti mes a day for 30 day(s) Active lovastatin 40 mg 1 tab(s) orally once a day for 30 day(s) Active carvedilol 3.125 mg 1 tab(s) orally 2 ti mes a day for 30 day(s) Active sertraline 50 mg 1 tab(s) orally once a day for 30 day(s) Active Medrol Dosepak 4 mg as directed 07/30/2019 Active etodolac 400 mg 1 tab(s) orally 2 ti mes a day for 30 day(s) 12/29/2019 Active SOCIAL HISTORY Tobacco Use: Social History Observation Description Date Details (start date - stop date) Former Smoker NA - NA Sex Assigned At : Social History Observation Description Sex Assigned At Unknown Tobacco Use: Question Answer Notes Smoking Status former smoker PROBLEMS Problem Type ICD Code Onset Dates Problem Status W/U Status Risk SNOMED Code Notes Problem Essential hypertension (I10) Active confirmed 16015371 Problem Positive GABRIELLA (antinuclear antibody) (R76.8) Active confirmed 950734504 Problem Arthralgia of multiple sites (M25.50) Active confirmed 78367009 PLAN OF TREATMENT Pending Test Test Name Order Date Lab slip given 05/27/2019 Lab slip given 12/29/2019 COMPREHENSIVE METABOLIC PANEL 12/29/2019 CBC WITH DIFFERENTIAL 12/29/2019 C-REACTIVE PROTEIN 12/29/2019 SEDIMENTATION RATE 12/29/2019 Insurance Providers Payer Name Payer Address Payer Phone Subscriber Number Group Number Insured Name Patient Relationship to Insured Coverage Start Date Coverage End Date MEDICARE [address] [address] [place] [phone] [id number] [place], [place] Self - patient is the insured 5 [address] [address] [place] [id number] [place], [place] Self - patient is the insured 9 MEDICAL (GENERAL) HISTORY Medical History History ICD Code diabetes depression high blood pressure
--- OUTSIDE RECORDS SUMMARY | 2024-11-19 09:37 | XMS_ITS | Clinical Summary ---
Author Organization [facility] Address [address] [place] [address] [place] [address] Phone Care Team Providers Care Mill Operator Name Role Phone Jacy Boyer MD Primary Care Provider [phone] Allergies No known active allergies Medications Blood-Glucose Meter (ACCU-CHEK SHERRY PLUS METER)Indication s:Type 2 diabetes mellitus without complication, without long-term current use of insulin (CMS/HCC) The pt's checks her sugar once daily.. 1 Each 7 Active carvedilol (COREG) 3.125 mg tablet Take 3.125 mg by mouth 2 times daily. Active blood sugar diagnostic (Accu-Chek Sherry) StripIndications :Type 2 diabetes mellitus without complication, without long-term current use of insulin (CMS/[facility]) Use to check blood sugar once daily. E11.9 100 Each 3 2 Active metFORMIN (GLUCOPHAGE) 1,000 mg tabletIndication s:Essential hypertension Take 1 Tablet (1,000 mg) by mouth 2 times daily with meals. 180 Tablet 3 2 Active lancets (Accu-Chek Softclix Lancets) Check blood sugar once daily. E11.9 100 Each 3 2 Active losartan (COZAAR) 25 mg tabletIndication s:Essential hypertension Take 1 Tablet (25 mg) by mouth daily. 90 Tablet 3 2 Active semaglutide 0.25 mg or 0.5 mg(2 mg/1.5 mL) Pen InjectorIndicati ons:Type 2 diabetes mellitus without complication, without long-term current use of insulin (CMS/HCC) Inject 0.5 mg by subcutaneous injection every 7 days. Take as directed by refrigerator repair technician 4 Each 6 2 Active sertraline (ZOLOFT) 50 mg tabletIndication s:Depression with anxiety Take 1 Tablet (50 mg) by mouth daily. 90 Tablet 3 2 Active atorvastatin (LIPITOR) 40 mg tablet Take 1 Tablet (40 mg) by mouth daily at bedtime. 90 Tablet 1 2 Active fluticasone propionate (FLONASE) 50 mcg/spray [place], Suspension nasal inhaler USE TWO SPRAYS IN EACH NOSTRIL DAILY 48 Gram 2 Active Active Problems Patient Care Coordination No te Formatting of this note migh t be different from the original. Eye dr: [facility] Dentist: can't recall name. Cardiology: Dr Jordon Bhakta, [facility] heart and vascular Problem Noted Date Diagnosed Date Recurrent major depressive disorder, in full rem ission 02/07/2021 Overview (02/07/2021): On sertraline Assessment & Plan (02/07/2021 12:23 PM CDT): Stable, continue sertraline, continue self-care. Support divided by FP. Normocytic anemia 02/07/2021 Assessment & Plan (02/07/2021 12:24 PM CDT): History of iron deficiency. Will update labs and iron levels. Instructed to have these labs done prior to hip surgery. Further management pending labs. Stenosis of carotid artery 11/12/2020 Overview (02/07/2021): Diagnosis pulled in From care everywhere. No prior imaging available to review. Assessment & Plan (02/07/2021 12:24 PM CDT): Known aortic and coronary artery atherosclerosis. Bruit noted on exam, Dopplers ordered. Continue statin, aspirin, beta-clare. Further management pending imaging. Primary osteoarthritis of left knee 08/29/2019 Primary osteoarthritis of right knee 08/29/2019 Primary osteoarthritis of left hip 08/29/2019 Thyroid antibody positive 06/03/2019 Assessment & Plan (11/02/2020 11:14 AM DJANGO DEVELOPER): Antibodies positive, has previously had normal thyroid function. Current thyroid function unknown, will update labs. Further management pending labs. Elevated antinuclear antibody (GABRIELLA) level 2018 Pain in joint 06/02/2019 Former smoker 06/02/2019 Overview (06/02/2019): 24-mlav-cgsr history, quit in 2010 Carpal tunnel syndrome, right 06/02/2019 Obesity (BMI 30.0-34.9) 06/02/2019 Osteoarthritis, multiple sites 04/10/2019 Overview (04/10/2019): Bilateral hips and knees as seen on xray. Low serum vitamin B12 04/10/2019 Assessment & Plan (11/02/2020 11:14 AM DJANGO DEVELOPER): Current control uncertain. Labs as ordered. Further management pending labs. Atherosclerosis of [place] ronary artery of [place] without angina pectoris 11/29/2018 Overview (11/29/2018): Mild atherosclerotic calcifications, indicidnetal finding on CT chest November 2018 Aortic atherosclerosis 11/29/2018 Overview (11/29/2018): As seen on CT chest November 2018 History of chest pain 11/21/2018 Overview (11/21/2018): Follows w/ cardiology. Stress test neg. CT chest neg for PE. rpeviously on coreg, asa, statin. Pulmonary nodules 11/21/2018 Overview (11/21/2018): Multiple pulmonary nodules noted on CTA, described as tiny, bilateral, November 2018 Diverticulosis of large intestine without hemorr rachel 11/13/2018 Overview (11/13/2018): As noted on cscope 2016. Vaginal itching 11/13/2018 Essential hypertension 11/12/2017 Overview (11/21/2018): On losartan, has never tried any other BP meds. Was prescribed Coreg by her refrigerator repair technician. Assessment & Plan (11/02/2020 11:13 AM DJANGO DEVELOPER): Hypertension: Well-controlled. Continue losartan and Coreg. Labs as ordered. Recommend ambulatory BP monitoring, parameters given and ER precautions provided. Recommend low Na/DASH diet and regular exercise, achieve/maintain healthy weight. Tubular adenoma 06/09/2016 Overview (11/13/2018): On cscope 2015. Type 2 diabetes mellitus without complication Overview (11/13/2018): A1x 6.8% May 2018, on metformin. Checks BG, random, 120s-140s. Assessment & Plan (02/07/2021 12:23 PM CDT): Reviewed guidelines for diabetic care. Goal of A1c <7.0% Control uncertain, labs as ordered Is on statin Eye exam: Nh-se-ahwi-scanned into media Foot exam: up to date Labs as ordered Continue Metformin for glycemic control. Continue diabetic diet, exercise as able Assessment & Plan (11/02/2020 11:13 AM DJANGO DEVELOPER): Reviewed guidelines for diabetic care. Goal of A1c <7.0% Current control uncertain Is on statin Eye exam: Up-to-date Foot exam: Due at next visit Labs as ordered Continue Metformin for glycemic control. Further management pending labs Strong message for lifestyle recommendation adherence, including regular exercise w/ goal of min 150 min per week and low sugar/low simple carb diet. Hyperlipidemia 03/26/2015 Overview (11/13/2018): Controlled on lovastatin. Still has high TGLs. Assessment & Plan (11/02/2020 11:13 AM DJANGO DEVELOPER): HLD: Current control uncertain. Labs as ordered. Continue statin at current dose pending labs. Lifestyle recommendations as above. Depression with anxiety 03/26/2015 Overview (11/13/2018): Stable on current dose of zoloft. No other meds tried. Has never been in counseling. Polyp of colon 12/28/2014 Overview (02/09/2020): Colon polyp Resolved Problems Problem Noted Date Diagnosed Date Resolved Date Quadriceps weakness 08/29/2019 02/08/20 21 Immunizations Immunization Administration Dates Next Due (PFIZER)(12 YR UP) COVID-19 VACCINE - EMERGENCY USE AUTHORIZATION, MRNA, [id number](PF) 30 MCG/0.3 ML IM SUSP 07/21/2021,11/18/2020,10/28/2020 (PNEUMOVAX 23)(50 YRS UP) PN EUMOCOCCAL POLYSACCHARIDE (PPV23) 0.5 ML, IM 11/18/2015 (PREVNAR 13)(6 WKS UP) PNEUM OCOCCAL CONJUGATE (PCV13) 0.5 ML, IM 05/14/2017 INFLUENZA VACCINE HIGH DOSE QUADRIVALENT 65 YR UP PF IM 05/11/2020 INFLUENZA VACCINE QUADRIVALE NT 3 YR UP PF IM 05/13/2018 Influenza Seasonal Unspecifi ed Formulation IM 05/04/2022,06/17/2021,05/31/2016,05/18,07/03/2014,06/13/2013,06/28/2012 ,06/04/2009,06/24/2008 Influenza Vaccine High Dose 65+ Yrs IM 0 06/02/2019,05/14/2017,05/31/2016,07/03 Influenza Vaccine Tri Rcmb 18+ PF IM 06/03/2014 Influenza, Unspecified Formulation 07/03,06/13/2013,06/28/2012,07/12,06/04/2009,06/24/2008 Family History Medical History Relation Name Comments Diabetes Brother Heart Disease Father Diabetes Mother Stroke Mother Hypertension Sister 1 Healthy Sister 2 Healthy Son 1 Healthy Son 2 Healthy Son 3 Breast Cancer Neg Hx Colon Cancer Neg Hx Relation Name Status Comments Brother Alive Father (Age 46) CAD Mother (Age 66) stroke Sister 1 Alive Sister 2 Alive Son 1 Alive Son 2 Alive Son 3 Alive Social History Tobacco Use Types Packs/Day Years Used Date Smoking Tobacco: Former Cigarettes 1.5 40 0 03/26/1971 - 03/26/2011 Smokeless Tobacco: Never Tobacco Cessation:Counseling Given: No Alcohol Use Standard Drinks/Week Comments No 0 (1 standard drink = 0.6 oz pur e alcohol) Financial Resource Strain Answer Date R ecorded How hard is it for you to pa y for the very basics like food, housing, medical care, and heating? Patient declined 08/09/2021 Food Insecurity Answer Date Recorded In the past 12 months, have you worried that your food would run out before you had money to buy more? Patient declined 2020 In the past 12 months, did y ou run out of food and didn't have money to buy more? Patient declined 08/09/2021 Transportation Needs Answer Date Record ed In the past 12 months, has l ack of transportation kept you from medical appointments or from getting medications? Patient declined 08/09/2021 Lack of Transportation (Non-Medical) Not on file 08/09/2021 Comments No Sex and Gender Information Value Date Recorded Sex Assigned at Not on file Legal Sex Female 2:49 AM DJANGO DEVELOPER Gender Identity Not on file Sexual Orientation Not on file Last Filed Vital Signs Vital Sign Reading Time Taken Comments Blood Pressure 122/60 02/06/2022 10:21 AM CDT Pulse 88 02/06/2022 10:21 AM CDT Temperature 36.7 C (98 F) 02/06/2022 10:21 AM CDT Respiratory Rate 16 10/01/2019 3:20 PM DJANGO DEVELOPER Oxygen Saturation 97% 02/06/2022 10:21 AM CDT Inhaled Oxygen Concentration - - Weight 72.1 kg (159 lb) 02/06/2022 10:21 AM CDT Height 160 cm (5' 3 ) 02/06/2022 10:21 AM CDT Body Mass Index 28.17 02/06/2022 10:21 AM CDT Plan of Treatment Health Maintenance Due Date Last Done Comments DTAP/TDAP/TD VACCINES (1 - Tdap) 1969 FIT-DNA Q 3 years 1995 FIT/FOBT Q 1 year 1995 Flex Sig/CT Colonography Q 5 years 1995 ZOSTER VACCINE (1 of 2) 2000 RSV VACCINE (60+ or ) (1 - Risk 60-74 years 1-dose series) 2010 BREAST CANCER SCREENING 07/21/2022 07/21/20 21, 06/17/2020, 06/02/2019, Additional history exists DIABETES ANNUAL FOOT EXAM 02/06/20232021, 05/11/2020, 02/12/2019, Additional history exists DIABETES MICROALBUMIN ANNUAL SCREEN 02/06/2023 02/06/2022, 11/02/2020, 02/09/2020, Additional history exists LDL CHOLESTEROL ANNUAL 02/06/2023 2, 11/02/2020, 02/09/2020, Additional history exists DIABETES ANNUAL RETINAL EXAM 02/08/202304/2022, 02/08/2022, 10/11/2020, Additional history exists DIABETES HBA1C Q 6 MONTHS 06/15/20232022, 02/06/2022, 03/11/2021, Additional history exists INFLUENZA VACCINE (#1) 2024 2, 06/17/2021, 05/11/2020, Additional history exists COVID-19 Vaccine (2023-2 5 season) 2024 07/21/2021, 11/18/2020, 10/28/2020 COLORECTAL SCREENING 05/25/2026 05/25/2016, 03/12/2008, 03/12/2008 Colorectal Cancer Screening 05/25/2026 OSTEOPOROSIS SCREENING Completed 7, 12/11/2016, 08/25/2011 PNEUMOCOCCAL VACCINE 50+ YEARS Completed 05/14/2017 , 11/18/2015 Procedures Procedure Name Priority Date/Time Associated Diagnosis Comments HM DIABETES EYE EXAM Routine 02/08/2022 MICROALBUMIN/CREATIN INE RATIO, RANDOM UR Routine 02/06/2022 11:27 AM CDT LIPID PANEL Routine 02/06/2022 11:27 AM CDT Type 2 diabetes mellitus without complication, without long-term current use of insulin ([facility]) HEMOGLOBIN A1C Routine 02/06/2022 11:27 AM CDT Type 2 diabetes mellitus without complication, without long-term current use of insulin (CMS/[facility]) MAMMO 3D KEVYN SCREEN BILAT W OR WO CAD Routine 07/21/2021 9:44 AM DJANGO DEVELOPER Visit for screening mammogram XR DEXA BONE DENSITY AXIAL 1 OR MORE SITES Routine 12/11/2016 9:46 AM CDT Asymptomatic menopausal state ENDOSCOPY, COLON, SCREENING Routine 03/12/2008 from Last 3 Months or Most Recently Relevant to Health Maintenance Results * HM DIABETES EYE EXAM (02/08/2022) Jacy Boyer MD HEALTH MAINTENANCE Edited Result - Final [facility]# [id number] [address] [place] [address] * MICROALBUMIN/CREATININE RATIO, RANDOM UR (02/06/2022 11:27 AM CDT) Creatinine, Urine 125 20 - 275 mg/dL [facility] MICROALBUMIN, URINE 0.6 See Note: mg/dL [facility] Comment: Reference Range: Reference Range Not established MICROALBUMIN/CREAT RATIO, UR 5 <30 mcg/mg creat [facility] Comment: The ADA defines abnormalities in albumin excretion as follows: Albuminuria Category Result (mcg/mg creatinine) Normal to Mildly increased <30 Moderately increased 30-299 Severely increased > OR = 300 The ADA recommends that at least two of three specimens collected within a 3-6 month period be abnormal before considering a patient to be within a diagnostic category. Test Performed at: [facility] [id number] [place] [address] Sahil Rodriguez D.O., MPH 02/06/2022 11:2 7 AM CDT 02/06/2022 11:29 AM CDT Jacy Boyer MD URINE ORDERABLES Final Res ult [facility] [phone] * (ABNORMAL) HEMOGLOBIN A1C (02/06/2022 11:27 AM CDT) HEMOGLOBIN A1C 6.2(H) <5.7 % of total Hgb [facility] Comment: For someone without known diabetes, a hemoglobin A1c value between 5.7% and 6.4% is consistent with prediabetes and should be confirmed with a follow-up test. For someone with known diabetes, a value <7% indicates that their diabetes is well controlled. A1c targets should be individualized based on duration of diabetes, age, comorbid conditions, and other considerations. This assay result is consistent with an increased risk of diabetes. Currently, no consensus exists regarding use of hemoglobin A1c for diagnosis of diabetes for children. ESTIMATED AVERAGE GLUCOSE (MG/DL) 131 mg/dL [facility] ESTIMATED AVERAGE GLUCOSE (MMOL/L) 7.3 mmol/L [facility] Comment: FASTING:YES FASTING: YES Test Performed at: [facility] [address] [place] [address] George Maynard Blood 02/06/2022 11:2 7 AM CDT 02/06/2022 11:29 AM CDT Jacy Boyer MD CHEMISTRY ORDERABLES Final Result [facility] [phone] * LIPID PANEL (02/06/2022 11:27 AM CDT) CHOLESTEROL 136 <200 mg/dL [facility] HDL 63 > OR = 50 mg/dL [facility] TRIGLYCERIDE 111 <150 mg/dL [facility] LDL CALCULATED 54 mg/dL (calc) [facility] Comment: Reference range: <100 Desirable range <100 mg/dL for primary prevention; <70 mg/dL for patients with CHD or diabetic patients with > or = 2 CHD risk factors. LDL-C is now calculated using the Bryant calculation, which is a validated novel method providing better accuracy than the Friedewald equation in the estimation of LDL-C. Surya HAGER et al. BESSIE. 2013;310(19): 1150-7883 (http://education.Kiva.Averail/faq/LWV596) CHOL/HDL RATIO 2.2 <5.0 (calc) [facility] TOTAL NON-HDL CHOL(LDL+VLDL) 73 <130 mg/dL (calc) [facility] Comment: For patients with diabetes plus 1 major ASCVD risk factor, treating to a non-HDL-C goal of <100 mg/dL (LDL-C of <70 mg/dL) is considered a therapeutic option. Test Performed at: [facility] [address] [place] [address] George Maynard Blood 02/06/2022 11:2 7 AM CDT 02/06/2022 11:29 AM CDT Jacy Boyer MD CHEMISTRY ORDERABLES Final Result [facility] [phone] * MAMMO SCRN BILAT 3D KEVYN W OR WO CAD (07/21/2021 9:44 AM DJANGO DEVELOPER) Anatomical Region Laterality Modality Breast Bilateral Mammography 07/21/2021 9:44 AM DJANGO DEVELOPER Impressions 07/22/2021 10:06 AM DJANGO DEVELOPER IMPRESSION: No suspicious findings to suggest malignancy in either breast. Annual mammography is recommended. OVERALL FINAL ASSESSMENT: BI-RADS CATEGORY 1: Negative Narrative 07/22/2021 10:06 AM DJANGO DEVELOPER BILATERAL SCREENING DIGITAL MAMMOGRAM WITH 3D TOMOSYNTHESIS AND CAD DATE: 07/21/2021 9:44 AM HISTORY: Routine screening. DICTATION LOCATION: [facility] TECHNIQUE: Full-field digital craniocaudal and mediolateral oblique projections of both breasts were obtained. Low-dose full-field digital breast tomosynthesis examination was performed with 2D and 3D acquisitions. Examination is read in conjunction with computer aided detection. COMPARISON: 06/17/2020 and older. BREAST COMPOSITION: Almost entirely fat. FINDINGS: No suspicious mass, suspicious microcalcifications, or architectural distortion is identified in either breast. Computer aided detection was used in the interpretation of this examination. Procedure Note Joyce Crane MD - 07/22/2021 BILATERAL SCREENING DIGITAL MAMMOGRAM WITH 3D TOMOSYNTHESIS AND CAD DATE: 07/21/2021 9:44 AM HISTORY: Routine screening. DICTATION LOCATION: [facility] TECHNIQUE: Full-field digital craniocaudal and mediolateral oblique projections of both breasts were obtained. Low-dose full-field digital breast tomosynthesis examination was performed with 2D and 3D acquisitions. Examination is read in conjunction with computer aided detection. COMPARISON: 06/17/2020 and older. BREAST COMPOSITION: Almost entirely fat. FINDINGS: No suspicious mass, suspicious microcalcifications, or architectural distortion is identified in either breast. Computer aided detection was used in the interpretation of this examination. IMPRESSION: No suspicious findings to suggest malignancy in either breast. Annual mammography is recommended. OVERALL FINAL ASSESSMENT: BI-RADS CATEGORY 1: Negative us Sarah Gilmore MD MAMMO ORDERABLES Final Resu lt * XR DEXA BONE DENSITY AXIAL 1 OR MORE SITES (12/11/2016 9:46 AM CDT) Anatomical Region Laterality Modality Digital Radiogra phy 12/11/2016 9:46 AM CDT Impressions 12/11/2016 9:51 AM CDT IMPRESSION: Normal BMD. Lumbar Spine: T-Score: 1.9 Left Femoral Neck: T-Score: 1.1 Right Femoral Neck: T-Score: 0.3 Comments: None. Statistical change: Prior examination from 2010 was performed on different equipment at [facility]. Results are not comparable. Definitions: Normal: T-score above -1.0 Osteopenia T-score less than -1.0 and above -2.5 Osteoporosis: T-score <= -2.5 Follow-up Recommendations: Patients without high risk factors for osteoporosis T-score -1.0 to -1.5 - Consider repeat BMD in 5-10 years T-score -1.5 to - 2.0 - Consider repeat BMD in 3-5 years T-score -2.0 to - 2.5 - Consider repeat BMD every 2 years Patients on treatment for osteoporosis 1-2 years after initiation of treatment and every 2 years [address] Ji Lerma MD DICTATION LOCATION: Location 1 - [facility] 12/11/2016 9:51 AM CDT EXAMINATION: BONE DENSITY STUDY (DXA) DATE: 12/11/2016 9:46 AM CLINICAL HISTORY: 66 years postmenopausal female. PROCEDURE: Planar images of the lumbar spine and hip(s) using a Vettery DEXA scanner for bone mineral density determination (BMD). FINDINGS: Lumbar Spine (L1-L4): T-Score: 1.9 1.424 g/sq cm Left Femoral Neck: T-Score: 1.1 1.152 g/sq cm Right Femoral Neck: T-Score: 0.3 1.046 g/sq cm Detailed report placed in Imaging Section of [facility] EMR. Procedure Note Ji Lerma MD - 12/11/2016 EXAMINATION: BONE DENSITY STUDY (DXA) DATE: 12/11/2016 9:46 AM CLINICAL HISTORY: 66 years postmenopausal female. PROCEDURE: Planar images of the lumbar spine and hip(s) using a Vettery DEXA scanner for bone mineral density determination (BMD). FINDINGS: Lumbar Spine (L1-L4): T-Score: 1.9 1.424 g/sq cm Left Femoral Neck: T-Score: 1.1 1.152 g/sq cm Right Femoral Neck: T-Score: 0.3 1.046 g/sq cm Detailed report placed in Imaging Section of [facility] EMR. IMPRESSION IMPRESSION: Normal BMD. Lumbar Spine: T-Score: 1.9 Left Femoral Neck: T-Score: 1.1 Right Femoral Neck: T-Score: 0.3 Comments: None. Statistical change: Prior examination from 2010 was performed on different equipment at [facility]. Results are not comparable. Definitions: Normal: T-score above -1.0 Osteopenia T-score less than -1.0 and above -2.5 Osteoporosis: T-score <= -2.5 Follow-up Recommendations: Patients without high risk factors for osteoporosis T-score -1.0 to -1.5 - Consider repeat BMD in 5-10 years T-score -1.5 to - 2.0 - Consider repeat BMD in 3-5 years T-score -2.0 to - 2.5 - Consider repeat BMD every 2 years Patients on treatment for osteoporosis 1-2 years after initiation of treatment and every 2 years [address] Ji Lerma MD DICTATION LOCATION: Location 1 - [facility] Tim Katz DO DIAGNOSTIC IMAGING OR DERABLES Final Result * ENDOSCOPY, COLON, SCREENING (03/12/2008) us Abstract Provider GI PROCEDURE ORDERABLES Final Result [facility] from Last 3 Months or Most Recently Relevant to Health Maintenance Insurance [facility] [place] B RX [employer]ANS (INTERNAL) [facility] Internal Plans Advance Directives For more information, please contact: [phone] * Full Code (Latest Code Status on File) Date Activated Date Inactivated Comments 10/01/2019 11:42 AM 10/01/2019 5:58 PM * Full Code Date Activated Date Inactivated Comments 05/25/2016 9:11 AM 05/25/2016 12:26 PM Care Teams Mill Operator Relationship Specialty Start Date End Date Jacy Boyer MD PCP - General Family Practice 09/19/21
--- OUTSIDE RECORDS SUMMARY | 2024-11-19 09:37 | XMS_ITS | Encounter Summary ---
Author Organization [facility] Address [address] [place] [address] Care Team Providers Care Cordage Sales Representative Name Role Phone Obdulia Giordano MD Primary Care Provider [phone] Gabriela Hopson Primary Care Provider Encounter Details Date Type Department Care Team (Late st Contact Info) Description 09/16/2022 [employer] Message Enc [facility] Family Medicine [facility] [address] [place] [address] Obdulia Giordano MD [address] [place] [address] Medication request from the 09 of September Social History Tobacco Use Types Packs/Day Years [...] to have Coronavirus/COVID-19? Yes 09/03/2022 3:17 PM [employer] documented as of this encounter Progress Notes * Shireen Mo - 09/27/2022 3:44 PM CST Patient is requesting Dr Giordano calls her regarding her medication request [facility] [employer] documented in this encounter Plan of Treatment Not on file documented as of this encounter Visit Diagnoses Not on filedocumented in this encounter Additional Health Concerns Infection Onset Date Last Indicated Resolved Time COVID-19 Rule Out 12/07/2022 12/07/2022 12/07/2022 11:46 PM CDT Assessment Noted Time PHQ-9 Depression Total Score: 4 05/29/20 1:23 PM CDT documented as of this encounter Care Teams Cordage Sales Representative Relationship Specialty Start Date End Date Obdulia Giordano MD [address] [place] [address] PCP - General FAMILY PRACTICE 05/15/22 02/08/24 Gabriela Hopson APNP [address] [address] PCP - General Nurse Practitioner Family 02/09/24 documented as of this encounter
== END 2024-11-19 08:57 | disposition home or self-care (01) ==
LOC: ANHIMG 08:58
PROVIDERS: PCP Nurse Practitioner Family; Visit Provider Nurse Practitioner Family
DX: Z12.31 Encounter for screening mammogram for malignant neoplasm of breast (principal)
CPT/HCPCS: 77063; 77067